=== PATIENT | female | born 1965 | race Caucasian/White ===

== ENCOUNTER → 2017-01-24 | Outpatient (CLI) | payer BC ==
[~2017-01-24] MED LIST: AMLO-110 PO; B-CO1CAP17 PO; GLIP10TA3 PO; GLIP10TA9 PO; LOSA50TA6 PO; LYRICA PO; TRAM-10 PO
--- NOTE | 2017-01-24 14:04 | MAMMOGRAPHY REPORT ---
BILATERAL DIGITAL DIAGNOSTIC MAMMOGRAM TOMOSYNTHESIS WITH CAD AND TARGETED LEFT ULTRASOUND: 01/24/2017 CLINICAL HISTORY: The patient reported approximately 2 weeks ago she had left areolar pain, redness, and swelling. She was placed on antibiotics and her symptoms have greatly improved. She no longer h as pain or redness but does still have some areolar swelling/hardness. She denies any nipple dischar ge. She does smoke cigarettes. TECHNIQUE: Breast tomosynthesis in addition to standard 2D mammography was performed. Current study was also evaluated with a Computer Aided Detection (CAD) system. Bilateral CC and MLO 2-D and tomosy nthesis images were obtained. COMPARISON: Comparison is made to exams dated: 06/06/2015 mammogram, 04/01/2014 mammogram - [facility], and 09/15/2010 mammogram. BREAST COMPOSITION: The tissue of both breasts is heterogeneously dense, which may obscure small mas ses. FINDINGS: A triangle marker durham the site of the left areolar swelling. There is mild areolar thic kening seen mammographically, as well as an ill-defined focal asymmetry in the left subareolar region with associated architectural distortion, best seen on the cc tomosynthesis images. Additionally, t here is a prominent left axillary lymph node which measures 13 mm. The remainder of both breasts are stable compared to prior exams, without suspicious masses, calcific ations, or areas of architectural distortion noted. Targeted ultrasound was performed of the left subareolar breast, which shows ill-defined hypoechoic t issue which demonstrates increased vascularity and likely represents resolving inflammatory changes. No focal fluid collection is seen to suggest abscess. In the left axilla, there is a left axillary lymph node which has a normal fatty hilum and cortical t hickness at the upper limits of normal at 2 mm. The lymph node measures 1.5 x 0.5 cm. This correspo nds with the prominent left axillary lymph node seen mammographically and is likely reactive. IMPRESSION: ACR-BI-RADS CATEGORY 3: PROBABLY BENIGN, TARGETED ULTRASOUND ACR-BI-RADS CATEGORY 3: PRO BABLY BENIGN 1. Left areolar thickening and subareolar asymmetry/distortion seen mammographically, with ill-define d hypoechoic tissue seen in the left subareolar region on ultrasound. Given the clinical history, fi ndings are probably benign and likely represent resolving inflammatory changes from recent mastitis. No focal abscess is seen. Recommend follow-up diagnostic tomosynthesis mammograms and possible ultr asound of the left breast in 6-8 weeks to ensure resolution of the findings. Smoking cessation was a lso discussed with the patient, given that this is a big risk factor for nonpuerperal mastitis. Also recommend clinical follow-up; the patient should return sooner if symptoms recur/worsen. 2. Prominent left axillary lymph node, which is probably benign and likely represents a reactive lym ph node. This can be reassessed at the time of the left breast follow-up. The patient has been verbally notified of the results. Approximately 10% of breast cancers are not detected with mammography. A negative mammographic report should not delay biopsy if a clinically suggestive mass is present. Diana Bernardo M.D. ah/:01/24/2017 11:04:44 Supply Chain Logistics Manager: Kamilah TORRES(R)(M), [facility] letter sent: Follow Up Recommended 3 BI-RADS Code: ACR-BI-RADS Category 3: Probably Benign Ultrasound BI-RADS: ACR-BI-RADS Category 3: Pr obably Benign
== END | disposition home or self-care (01) ==
LOC: C.MAMM 10:21
PROVIDERS: ATTEND Nurse Practitioner Family
DX: N64.4 Mastodynia (principal); N61.0 Mastitis without abscess; N64.89 Other specified disorders of breast

== ENCOUNTER → 2017-04-12 | Outpatient (CLI) | payer BC ==
--- NOTE | 2017-04-12 15:23 | MAMMOGRAPHY REPORT ---
UNILATERAL LEFT DIGITAL DIAGNOSTIC MAMMOGRAM TOMOSYNTHESIS WITH CAD AND TARGETED LEFT ULTRASOUND: CLINICAL HISTORY: The patient is here for follow-up after having clinical symptoms of mastitis in Aug ust. The patient denies any current complaints, with no pain, redness, nipple discharge, palpable kelly mps, or other complaints. TECHNIQUE: Breast tomosynthesis in addition to standard 2D mammography was performed. Current study was also evaluated with a Computer Aided Detection (CAD) system. Left CC and MLO 2-D and tomosynthes is images were obtained. COMPARISON: Comparison is made to exams dated: 04/12/2017 ultrasound, 01/24/2017 mammogram, 5 mammogram, 04/01/2014 mammogram - [facility], and 09/15/2010 mammogram. BREAST COMPOSITION: The tissue of the left breast is heterogeneously dense, which may obscure small masses. FINDINGS: The previously seen ill-defined focal asymmetry with associated distortion in the left sub areolar breast mammographically is decreased and no longer clearly evident, with areolar thickening a lso decreased. The previously seen prominent left axillary lymph node is also significantly decrease d in size. The remainder of the left breast is stable compared to prior exams, without suspicious ma sses, calcifications, or areas of architectural distortion noted. Targeted ultrasound was performed of the left subareolar breast. The previously seen ill-defined hyp oechoic tissue in the left subareolar breast is significantly decreased compared to the January 2017 e xam. There is a small residual isoechoic 7 x 5 mm mass which may be within a milk duct and may repre sent intraductal debris versus residual inflammatory changes/small abscess. Given the significant in terval decrease in size, the finding is benign and is consistent with resolving mastitis. The previo usly seen left axillary lymph node has decreased in size and is now morphologically normal with sherron l cortical thickness. The lymph node now measures 11 mm, previously measuring 15 mm. Given the inte rval decrease in size, the left axillary lymph node is benign and was likely reactive. IMPRESSION: ACR BI-RADS CATEGORY 2: BENIGN, TARGETED ULTRASOUND ACR BI-RADS CATEGORY 2: BENIGN Significant interval decrease in size with near-complete resolution of inflammatory changes in the le ft subareolar breast. Given the interval decrease, findings are benign and compatible with resolving mastitis. The left axillary lymph node is also decreased and is consistent with a benign reactive l ymph node. There is no mammographic or targeted sonographic evidence of malignancy. Recommend kym nued clinical follow-up; the patient should return for repeat imaging if symptoms recur. Also recomm end routine bilateral screening mammograms which are due January 2018. The patient has been verbally notified of the results. Approximately 10% of breast cancers are not detected with mammography. A negative mammographic report should not delay biopsy if a clinically suggestive mass is present. Diana Bernardo M.D. ah/:04/12/2017 09:31:12 Vector Control Assistant: Priya TORRES(Kelly)(M), [facility] letter sent: Normal 1/2 BI-RADS Code: ACR BI-RADS Category 2: Benign Ultrasound BI-RADS: ACR BI-RADS Category 2: Benign
== END | disposition home or self-care (01) ==
LOC: C.MAMM 08:34
PROVIDERS: ATTEND Internal Medicine
DX: Z09 Encounter for follow-up examination after completed treatment for conditions other than malignant neoplasm (principal); Z86.19 Personal history of other infectious and parasitic diseases

== ENCOUNTER → 2017-07-19 | Outpatient (CLI) | payer OTHER ==
--- NOTE | 2017-07-19 14:49 | DIAGNOSTIC IMAGING REPORT ---
LEFT HAND 3 VIEWS HISTORY: Left hand pain. Fall. COMPARISON: None. FINDINGS: There is no fracture or dislocation. Soft tissues are unremarkable. No radiopaque foreign bodies. IMPRESSION: No fractures. Electronically signed by: Douglas Jacobs M.D. 07/19/2017 2:47 PM Dictated Date/Time: 07/19/2017 2:45 PM
== END | disposition home or self-care (01) ==
LOC: C.RAD1850 14:32
PROVIDERS: ATTEND Family Medicine Hospice and Palliative Medicine
DX: M79.645 Pain in left finger(s) (principal); W19.XXXA Unspecified fall, initial encounter

== ENCOUNTER 2019-02-26 14:10 | Inpatient (IN) ==
[2019-02-26] MEDS ORDERED: SODIUM CHLORIDE 0.9% 1000ML 1,000 ML IV ONE (14:39)
[2019-02-26 15:02] LABS: Basophils # (auto) 0.03 K/uL (0-0.2); Basophils % (auto) 0.3 %; Eosinophils # (auto) 0.56 K/uL (0-0.5); Eosinophils % (auto) 5.5 %; Hematocrit (blood only) 35.8 % (37-47); Hemoglobin 11.7 g/dL (12.0-16.0); Immature Granulocytes # (auto) 0.02 K/uL (0.00-0.02); Immature Granulocytes % (auto) 0.2 %; Lymphocytes # (auto) 2.19 K/uL (1.2-3.4); Lymphocytes % (auto) 21.5 %; Mean Corpuscular Hemoglobin 27.6 pg (25-34); Mean Corpuscular Hgb Conc 32.7 g/dL (32-36); Mean Corpuscular Volume 84.4 fL (80-100); Mean Platelet Volume 10.2 fL (7.4-10.4); Monocytes # (auto) 0.78 K/uL (0.11-0.59); Monocytes % (auto) 7.7 %; Neutrophils # (auto) 6.61 K/uL (1.4-6.5); Neutrophils % (auto) 64.8 %; Platelet Count 264 K/uL (130-400); RDW Coefficient of Variation 13.1 % (11.5-14.5); RDW Standard Deviation 40.2 fL (36.4-46.3); Red Blood Count 4.24 M/uL (4.2-5.4); White Blood Count 10.19 K/uL (4.8-10.8)
[2019-02-26 15:19] LABS: Albumin Level 3.4 gm/dl (3.4-5.0); Calcium 9.3 mg/dl (8.5-10.1); Creatinine Clr Calc Pharmacy 42.2 ml/min; Est GFR (African American) 55.9; Est GFR (Non-African American) 48.3
[2019-02-26 15:21] LABS: Albumin Globulin Ratio 0.8 (0.9-2); Bilirubin,Total 0.4 mg/dl (0.2-1); Total Protein 7.4 gm/dl (6.4-8.2)
[2019-02-26] MEDS ORDERED: IOVERSOL 100ml IV PRN (15:40)
--- NOTE | 2019-02-26 15:59 | CT Scan Report ---
CT facial bones w con CLINICAL HISTORY: 53 years-old Female presenting with Upper lip/gingival swelling - h/o dental implan ts. TECHNIQUE: Multidetector CT of the face was performed after the administration of intravenous contras t. IV contrast: 93 mL of Optiray 320. One or more dose lowering techniques were used consistent with the principles of ALARA (as low as reasonably achievable), including automatic exposure control, mA o r kV adjustment to individual patient size, and/or use of iterative reconstruction. COMPARISON: None. CT DOSE (mGy.cm): The estimated cumulative dose is 636.35 mGycm. FINDINGS: Coatings Inspector topogram: Unremarkable. Prominent bilateral submandibular lymph nodes. Infiltration of the superficial subcutaneous tissue al jesu the upper lip and midline maxilla. Rim-enhancing fluid collection measuring 11 mm in diameter con sistent with odontogenic abscess located in the midline immediately inferior to the nares and along t he upper lip. This is associated with cortical erosion at the dental bridge, specifically in the expe cted location of the right central incisor. Remainder of maxillary teeth are also absent. Several man dibular teeth are absent. Mild buckle hyperenhancement along the mandible without osseous erosion or periapical lucency associated with the mandibular teeth. Polypoid mucosal thickening to a mild degree in the inferior maxillary sinuses. Remainder of the para nasal sinuses and mastoid air cells clear. Orbits notable for absence of the squaxin lenses bladder otherwise normal. Limited intracranial evalua tion within normal limits. Patent vasculature. Visualized portion of the thyroid, parotid, and 70 to the glands normal. No infiltrative change in the deep fat planes. IMPRESSION: 1. 11 mm odontogenic abscess associated with the midline maxilla in the upper lip. This results from cortical erosion at a dental bridge along the midline maxilla at the expected site of the right cent ral maxillary incisor. 2. Inflammatory changes of the buccal mucosa. 3. Mild reactive submandibular lymphadenopathy. Electronically signed by: Yuri Bright M.D. 02/26/2019 3:58 PM
--- NOTE | 2019-02-26 16:15 | Emergency Department Note ---
History of Present Illness General Chief complaint: Facial Injury/Pain Stated complaint: FACIAL SWELLING Time Seen by Provider: 02/26/19 14:17 History of Present Illness Maximum Pain Intensity: 0 53-year-old female who presents to the emergency department with complaint of progressively worsening swelling of the upper lip. The patient reports that she has had a prior history of dental bridge inserted approximately 8 years ago by [facility] in [place], and has not had any problems since that time. The patient reports that she has so much swelling that she cannot wear her dentures. The patient reports that she has been seen at 2 walk-in clinics, as well as the local [facility] office, and has been told that this is an allergic reaction, and instructed to take Zyrtec. He was started on Augmentin antibiotics, although the patient reports a history of hives with penicillin. The patient reports that the dentist did not perform any type of imaging studies of the teeth. The patient has not had any fever or chills, difficulty swallowing or lower lip swelling. She denies any recent upper respiratory infections, or history of chronic sinusitis. The patient reports that she does have a history of chronic kidney disease, and does see Dr. Johnston, manager of manufacturing with [facility]. The patient reports that she is due for a lab recheck on Saturday, and the is wanting to know if we could do the orders that he has requested for her lab work. The patient currently rates her discomfort a 2 out of 10. Home Medications Home Medications Medication Instructions Recorded Confirmed Type amlodipine 10 mg PO QAM 03/18/18 02/26/19 History losartan 50 mg PO BID 03/18/18 02/26/19 History Basaglar KwikPen U-100 Insulin 14 unit SUBCUT HS 05/28/18 02/26/19 History ergocalciferol (vitamin D2) 50,000 50,000 units PO WEEKLY #4 cap 12/04/18 02/26/19 Rx unit capsule atorvastatin 10 mg tablet 10 mg PO HS #30 tab 01/19/19 02/26/19 History peg 3350-electrolytes 236 240 ml PO Q10M #4000 ml 02/25/19 02/26/19 Rx gram-22.74 gram-6.74 gram-5.86 gram solution acetaminophen [Tylenol] 325 mg PO Q6H PRN 02/26/19 02/26/19 History cetirizine [Zyrtec] 10 mg PO PM PRN 02/26/19 02/26/19 History Allergies Allergy/AdvReac Type Severity Reaction Status Date / Time alcohol Allergy Severe SHORTNESS Verified 02/26/19 14:55 OF BREATH aspirin Allergy Intermediate HIVES Verified 02/26/19 14:55 ibuprofen Allergy Mild HIVES Verified 02/26/19 14:55 metformin Allergy Mild BODY PAIN Verified 02/26/19 14:55 Penicillins Allergy Mild HIVES Verified 02/26/19 14:55 Past Med/Surg History Medical History Diabetes mellitus type 2, uncontrolled (Chronic) Diabetic retinopathy, nonproliferative (Chronic) Diabetic nephropathy (Chronic) Hypertension (Chronic) Dyslipidemia (Chronic) Tobacco use (Chronic) Abnormal TSH (Chronic) Disc degeneration, lumbar (Chronic) Hemorrhoids (Inactive) Impaired memory (Inactive) Asthma NO INHALER USED for the past 40 years. No h/o hospitalization or intubation Chronic kidney disease ? STAGE Diabetes mellitus, type 2 IDDM Fibromyalgia Hypertension Surgical History H/O hysterectomy for benign disease History of cataract surgery R; was given 4mg versed and 100mcg fentanyl along with ketamine and benadryl due to itching from fentanyl History of section History of colonoscopy History of dilatation and curettage History of hysterectomy History of tooth extraction Social History Preferred Language: Maltese Communication Ability: Effective Candle Wicker Required: No Beliefs That Will Affect Care: None Current Living Situation: Spouse Other Information That Helps Us Care for You: No Feels Safe at Home: Yes Safety Concerns: Feels Safe At This Time Smoking Status: Former smoker Tobacco Type: cigarettes ; Cigarettes Per Day: 10 ; Second Hand Exposure: No ; Tobacco Cessation Education Requested by Patient: No Hx Alcohol Use: No Hx Substance Use: No Review of Systems 10 system review was performed and was negative except for pertinent positives and negatives as indicated in history of present illness Physical Exam Vital Signs Vital Signs - 24 hr 02/26/19 14:14 02/26/19 15:21 02/26/19 17:49 Temperature 37.0 C Temperature Source Oral Sepsis Recent Fever Within 48 Hours No Sepsis New/Unexplained Change in Mental Status No Sepsis Action Taken by Nursing No Action Required Pulse Rate 92 H Pulse Rate [Finger] 75 65 Respiratory Rate 16 15 18 Respiratory Effort / Characteristics Non-Labored Spontaneous Respiratory Depth Normal Respiratory Pattern Regular Blood Pressure 180/98 H Blood Pressure [Left Arm] 187/104 H 143/66 H Blood Pressure Mean 125 Blood Pressure Mean [Left Arm] 131 91 Pulse Oximetry 96 98 98 Oxygen Delivery Method Room Air Room Air Room Air CONSTITUTIONAL: Healthy and well nourished. Alert and oriented X 3. She does not appear acutely ill or toxic, nor does she appear in any significant distress. HEENT: Examination shows notable edema of the soft tissue below the nose. Examination of the nares does not show any open wounds or erythema. Examination of the oropharynx shows significant maxillary gingival erythema and edema without any erythema or pointing. No erythema is noted extending across the hard palate. The post are visible within the hard palate soft tissue, without any evidence for purulent drainage or erythema. Pupils equal, round and reactive. NECK: Full active range of motion without discomfort. LYMPHATICS: No cervical chain adenopathy. RESPIRATORY: Clear to auscultation bilaterally with no wheezing, crackles, rhonchi or stridor. CARDIOVASCULAR: Regular rate and rhythm with no murmurs, rubs or gallops. GASTROINTESTINAL: Bowel sounds present in all quadrants. Negative CVA tenderness. MUSCULOSKELETAL: Full range of motion of all joints without discomfort. INTEGUMENTARY: No rash or other significant dermatologic conditions noted. HEMATOLOGIC: No ecchymosis or petechiae. PSYCHIATRIC: Positive affect. NEUROLOGIC: No focal neurologic deficits noted. Course Patient history and physical exam were performed. Nurse's notes were reviewed. Vital signs were reviewed, showing a blood pressure of 180/98. The patient did not appear in any acute discomfort. IV access was established, and labs were drawn. I did have our Insulation Sprayer try to get into the hospital system to determine what labs were ordered; unfortunately, they were unable to find the lab orders. Labs were reviewed, showing a creatinine of 1.26. Glucose is 116. Remaining electrolytes are normal. Hemoglobin is 11.7. Platelet count is normal. The patient was hydrated with a liter normal saline given the patient's history of chronic kidney disease. CT of the facial bones with IV contrast shows an 11 mm odontogenic abscess associated with the midline maxilla in the upper lip, likely resulting from a cortical erosion of the dental bridge in the same area. The case was discussed with Dr. Camara, ED attending physician, who recommended maxillofacial consultation. The case was then further discussed with Dr. Marquis, maxillofacial surgeon on-call, who came into the emergency department to evaluate the patient and review CT imaging. He is concerned that the infection is going to require the bridge post removal, and will plan to do that surgically. He has requested hospitalist admission for IV antibiotics and clearance, and he will anticipate doing the surgery tomorrow afternoon or evening. The case was then further discussed with the [facility] hospitalist, Dr. Vásquez, who will be admitting the patient. Please see her and Dr. Marquis's dictations for further treatment and final disposition. Administered Medications Atorvastatin Calcium (Lipitor) 10 mg PO HS ARI Stop: 03/28/19 20:59 Last Admin: 02/26/19 20:52 Dose: 10 mg Documented by: [id number] Losartan Potassium (Cozaar) 50 mg PO BID ARI Stop: 03/28/19 20:59 Last Admin: 02/26/19 20:49 Dose: 50 mg Documented by: [id number] Nicotine (Nicoderm Cq) 14 mg TD QAM ARI Stop: 03/28/19 19:38 Last Admin: 02/26/19 20:48 Dose: 14 mg Documented by: [id number] Discontinued Medications Sodium Chloride (Nss 1000ml) 1,000 mls @ 999 mls/hr IV .Q1H1M ONE Stop: 02/26/19 15:39 Last Infusion: 02/26/19 16:25 Dose: 0 mls/hr Documented by: [id number] Admin: 02/26/19 15:24 Dose: 999 mls/hr Documented by: [id number] Clindamycin Phosphate 900 mg/ (Dextrose) 56 mls @ 112 mls/hr IV ONE ONE Stop: 02/26/19 17:02 Last Infusion: 02/26/19 17:32 Dose: 0 mls/hr Documented by: [id number] Admin: 02/26/19 17:02 Dose: 112 mls/hr Documented by: [id number] Ioversol (Optiray 320 100ml) 93 ml IV ONCE PRN PRN Reason: Interaction Checking Stop: 03/02/19 15:39 Last Admin: 02/26/19 15:41 Dose: 93 ml Documented by: [id number] Medical Decision Making Medical Records Attestation: I reviewed the patient's medical records. Home Medications Current Medication List: was personally reviewed by me Laboratory Data Attestation: I reviewed the patient's lab results. Result diagrams: 02/26/19 14:46 02/26/19 14:46 Lab Results 02/26/19 02/26/19 02/26/19 Range/Units 14:46 14:46 14:46 WBC 10.19 (4.8-10.8) K/uL RBC 4.24 (4.2-5.4) M/uL Hgb 11.7 L (12.0-16.0) g/dL Hct 35.8 L (37-47) % MCV 84.4 (80-100) fL MCH 27.6 (25-34) pg MCHC 32.7 (32-36) g/dL RDW Std Deviation 40.2 (36.4-46.3) fL RDW Coeff of Josias 13.1 (11.5-14.5) % Plt Count 264 (130-400) K/uL MPV 10.2 (7.4-10.4) fL Immature Gran % (Auto) 0.2 % Neut % (Auto) 64.8 % Lymph % (Auto) 21.5 % [place] % (Auto) 7.7 % Eos % (Auto) 5.5 % Baso % (Auto) 0.3 % Immature Gran # (Auto) 0.02 (0.00-0.02) K/uL Neut # (Auto) 6.61 H (1.4-6.5) K/uL Lymph # (Auto) 2.19 (1.2-3.4) K/uL [place] # (Auto) 0.78 H (0.11-0.59) K/uL Eos # (Auto) 0.56 H (0-0.5) K/uL Baso # (Auto) 0.03 (0-0.2) K/uL ESR 69 H (0-21) mm/hr Sodium 143 (136-145) mmol/L Potassium 4.0 (3.5-5.1) mmol/L Chloride 112 H (98-107) mmol/L Carbon Dioxide 22 (21-32) mmol/L Anion Gap 9.0 (3-11) BUN 24 H (7-18) mg/dl Creatinine 1.26 H (0.6-1.2) mg/dl Est Cr Clr Drug Dosing 42.2 ml/min Est GFR ( Amer) 55.9 Est GFR (Non-Af Amer) 48.3 BUN/Creatinine Ratio 19.0 (10-20) Glucose 116 H (70-99) mg/dl Calcium 9.3 (8.5-10.1) mg/dl Total Bilirubin 0.4 (0.2-1) mg/dl AST 13 L (15-37) U/L ALT 15 (12-78) U/L Alkaline Phosphatase 113 (45-117) U/L Total Protein 7.4 (6.4-8.2) gm/dl Albumin 3.4 (3.4-5.0) gm/dl Globulin 4.0 (2.5-4.0) gm/dl Albumin/Globulin Ratio 0.8 L (0.9-2) Imaging Data My Impression: CT of the face with IV contrast shows evidence for an abscess within the soft tissue under the nose, as well as some cortical erosion of the maxillary bone adjacent to the bridge post. Radiologist report was also reviewed. Radiologist's Impression: CT facial bones w con CLINICAL HISTORY: 53 years-old Female presenting with Upper lip/gingival swelling - h/o dental implants. TECHNIQUE: Multidetector CT of the face was performed after the administration of intravenous contrast. IV contrast: 93 mL of Optiray 320. One or more dose lowering techniques were used consistent with the principles of ALARA (as low as reasonably achievable), including automatic exposure control, mA or kV a djustment to individual patient size, and/or use of iterative reconstruction. COMPARISON: None. CT DOSE (mGy.cm): The estimated cumulative dose is 636.35 mGycm. FINDINGS: Apartment Rental Agent topogram: Unremarkable. Prominent bilateral submandibular lymph nodes. Infiltration of the superficial subcutaneous tissue along the upper lip and midline maxilla. Rim-enhancing fluid collection measuring 11 mm in diameter consistent with odontogenic abscess located in the midline immediately inferior to the nares and along the upper lip. This is associated with cortical erosion at the dental bridge, specifically in the expected location of the right central incisor. Remainder of maxillary teeth are also absent. Several mandibular teeth are absent. Mild buckle hyperenhancement along the mandible without osseous erosion or periapical lucency associated with the mandibular teeth. Polypoid mucosal thickening to a mild degree in the inferior maxillary sinuses. Remainder of the paranasal sinuses and mastoid air cells clear. Orbits notable for absence of the [place] lenses bladder otherwise normal. Limited intracranial evaluation within normal limits. Patent vasculature. Visualized portion of the thyroid, parotid, and 70 to the glands normal. No infiltrative change in the deep fat planes. IMPRESSION: 1. 11 mm odontogenic abscess associated with the midline maxilla in the upper lip. This results from cortical erosion at a dental bridge along the midline maxilla at the expected site of the right central maxillary incisor. 2. Inflammatory changes of the buccal mucosa. 3. Mild reactive submandibular lymphadenopathy. Blood Pressure Blood Pressure Findings: Elevated blood pressure Blood Pressure Disposition: further management by hospitalist BR[place]NN Narrative Patient presents to emergency department with upper lip swelling for the past 2 weeks. Audible providers have indicated that her reaction was likely secondary to allergic reaction. CT imaging today otherwise shows an odontogenic abscess within the midline maxillary soft tissue. Patient will undergo I&D procedure an d dental hardware removal tomorrow. The patient currently does not have lab work suggesting acute kidney injury or failure. She is also afebrile, normotensive, not tachycardic no leukocytosis to suggest sepsis. Impression & Plan Dental abscess Discharge Plan Visit Data *Final* Discharge Date/Time: 02/26/19 19:23 Chief Complaint: Facial Injury/Pain Stated Complaint: FACIAL SWELLING ED Provider: Gary Camara ED Midlevel Provider: Jerardo Leal Discharge Problem: Dental abscess Patient Disposition: Admitted As Inpatient Discharge Instructions Interventions: ED Discharge Assessment Last Done: 02/26/19 19:23
[2019-02-26] MEDS ORDERED: CLINDAMYCIN 900 MG in DEXTROSE 5% 50 ML IV ONE (16:33)
--- NOTE | 2019-02-26 18:00 | History & Physical Report ---
Date of Service February 26, 2019 Assessment & Plan (1) Dental abscess: -Admit to [facility] -CT face revealing 11 mm abscess along the midline maxilla in the upper lip -IV clindamycin ordered, already received a dose in the ER -Dr. Marquis consulted, oral maxillofacial surgery, plans to drain the abscess tomorrow morning - allow diet this evening, patient reports pain is mild and is requesting a diet -N.p.o. after midnight -No white count, trend with am labs -Afebrile -No blood cultures were obtained initially -Patient appears very stable at this point in time, normal vital signs, pain controlled without medications, may use tylenol if needed (2) Hypertension: -Continue amlodipine 10 mg every morning, losartan 50 mg twice daily (3) Dyslipidemia: -Continue atorvastatin 10 mg daily (4) Tobacco use: -Cessation encouraged -Nicotine patch 14 mcg ordered to start now (5) Diabetes mellitus type 2, uncontrolled: -Last A1c was 8.2 in July 2018, repeat with a.m. labs -heart healthy/diabetic diet -Continue insulin 14 U HS -ISS with Accu-Cheks ACHS (6) Diabetic nephropathy: (7) Polycystic kidney disease: (8) Chronic kidney disease, stage III (moderate): -Follows with Dr. Johnston as an outpatient -Follow daily PRP -Patient is scheduled to follow-up with him and have lab work on 03/12/2019 to assess kidney function, patient was instructed to keep her appointment and plan on getting labs obtained at that time. (9) DVT prophylaxis: -Teds, ambulatory Disposition: Patient from home, admitted, surgical procedure to drain abscess tomorrow morning by Dr. Marquis History of Present Illness Primary Care Provider: Macie Brand MD This is a 53-year-old female with PMHx of HTN, HLD, tobacco use, DM type II, CKD stage III, diabetic nephropathy, and polycystic kidney disease who presents with acute onset of worsening swelling and pain of the upper lip. Patient notes that she underwent a dental bridge by [facility] in [place] approximately 8 years ago. Initially there was some swelling around the center tooth which then resolved. She reports that she had been seen at 2 urgent care clinics as well as the local [facility] office and was told that the lip swelling was an allergic reaction and told to take Zyrtec. There were no outpatient imaging studies of the teeth ordered. She was given a prescription for Augmentin, however has a penicillin or allergy and did not take the medication. She presented this morning because of increased swelling, mild pain and difficulty with eating. She denies any fever or chills, nausea, vomiting or any other acute complaints. Here in the ER a facial CT was performed showing an 11 mm abscess along the midline maxilla in the upper lip. No white count, no fever. Oral maxillofacial surgery, Dr. Marquis, plans to drain the abscess tomorrow morning Allergies Allergy/AdvReac Type Severity Reaction Status Date / Time alcohol Allergy Severe SHORTNESS Verified 02/26/19 14:55 OF BREATH aspirin Allergy Intermediate HIVES Verified 02/26/19 14:55 ibuprofen Allergy Mild HIVES Verified 02/26/19 14:55 metformin Allergy Mild BODY PAIN Verified 02/26/19 14:55 Penicillins Allergy Mild HIVES Verified 02/26/19 14:55 Home Medications Home Medications Medication Instructions Recorded Confirmed Type amlodipine 10 mg PO QAM 03/18/18 02/26/19 History losartan 50 mg PO BID 03/18/18 02/26/19 History Basaglar KwikPen U-100 Insulin 14 unit SUBCUT HS 05/28/18 02/26/19 History ergocalciferol (vitamin D2) 50,000 50,000 units PO WEEKLY #4 cap 12/04/18 02/26/19 Rx unit capsule atorvastatin 10 mg tablet 10 mg PO HS #30 tab 01/19/19 02/26/19 History peg 3350-electrolytes 236 240 ml PO Q10M #4000 ml 02/25/19 02/26/19 Rx gram-22.74 gram-6.74 gram-5.86 gram solution acetaminophen [Tylenol] 325 mg PO Q6H PRN 02/26/19 02/26/19 History cetirizine [Zyrtec] 10 mg PO PM PRN 02/26/19 02/26/19 History Past Med/Surg History Medical History Diabetes mellitus type 2, uncontrolled (Chronic) Diabetic retinopathy, nonproliferative (Chronic) Diabetic nephropathy (Chronic) Hypertension (Chronic) Dyslipidemia (Chronic) Tobacco use (Chronic) Abnormal TSH (Chronic) Disc degeneration, lumbar (Chronic) Hemorrhoids (Inactive) Impaired memory (Inactive) Asthma NO INHALER USED for the past 40 years. No h/o hospitalization or intubation Chronic kidney disease ? STAGE Diabetes mellitus, type 2 IDDM Fibromyalgia Hypertension Surgical History H/O hysterectomy for benign disease History of cataract surgery R; was given 4mg versed and 100mcg fentanyl along with ketamine and benadryl due to itching from fentanyl History of section History of colonoscopy History of dilatation and curettage History of hysterectomy History of tooth extraction Social History Preferred Language: Israeli Communication Ability: Effective Line Erector Apprentice Required: No Beliefs That Will Affect Care: Scientologist Scientologist Beliefs: RELIGIOUS Current Living Situation: Spouse Feels Safe at Home: Yes Smoking Status: Current every day smoker Tobacco Type: cigarettes ; Cigarettes Per Day: 10 CIG DAILY x 25+ years ; Second Hand Exposure: No ; Hx Alcohol Use: No Hx Substance Use: No Review of Systems Review of Systems: Constitutional: No fever, sweats or chills Eyes: No diplopia, no worsening or blurred vision ENT: normal hearing, no trouble swallowing + pain with swelling of the upper lip, difficulty eating today Respiratory: No cough, sputum, dyspnea at rest or on exertion Cardiovascular: No chest pain, tightness or palpitations Abdomen: No pain, nausea, vomiting, diarrhea or constipation Musculoskeletal: No joint pain, calf pain, swelling Neurologic: No weakness, numbness/tingling, or balance problems Psychiatric: No anxiety or depression Skin: No rash or itch Physical Exam Physical Exam: General: awake, alert, no apparent distress Head: Normocephalic, atraumatic ENT: PERRL, EOMI, no pharyngeal exudate, mucous membranes moist, + edema of the upper lip Chest: Clear to auscultation, on room air, no adventitious breath sounds Cardiac: Regular rate and rhythm, no murmur, no JVD, normal peripheral pulses, good capillary refill Abdominal: NABS x 4 quadrants, soft, nontender to palpation, no rebound, guarding or tenderness Extremities: Normal inspection, no peripheral edema or erythema, calfs nontender to palpation Psych: Normal mood and affect Neuro: AAO x 3, strength intact bilaterally and related 5/5, no motor deficits, speech is clear, no peripheral sensory deficits Skin: no rash or erythema Constitutional: WD/WN, vitals as above Eyes: normal visual viera by confrontation and + anicteric sclerae ENMT: Mouth: + lip abnormality (upper lip swelling) Neck: normal visual inspection and trachea midline Respiratory: normal respiratory effort, lungs clear to auscultation Cardiovascular: Rate/Rhythm: regular rate and regular rhythm Gastrointestinal (Abdomen): Inspection/Auscultation: abdomen not distended Percussion/Palpation: abdomen soft; abdomen nontender Musculoskeletal: Head/Neck/Chest: normocephalic and head atraumatic Neg for peripheral LE edema, + pedal pulses Skin: no rashes, warm and dry Neurologic: awake; not confused Speech / Cognition: normal speech Psychiatric: A+Ox3, euthymic affect Lymphatic: Exam as done by Christa Vásquez DO Results & Data Vital Signs (Past 12 Hours) Vital Signs Temp Pulse Pulse Resp BP BP Pulse Ox 02/26/19 17:49 65 18 143/66 H 98 02/26/19 15:21 75 15 187/104 H 98 02/26/19 14:14 37.0 C 92 H 16 180/[address] H [address] facial bones w con CLINICAL HISTORY: 53 years-old Female presenting with Upper lip/gingival swelling - h/o dental implants. TECHNIQUE: Multidetector CT of the face was performed after the administration of intravenous contrast. IV contrast: 93 mL of Optiray 320. One or more dose lowering techniques were used consistent with the principles of ALARA (as low as reasonably achievable), including automatic exposure control, mA or kV adjustment to individual patient size, and/or use of iterative reconstruction. COMPARISON: None. CT DOSE (mGy.cm): The estimated cumulative dose is 636.35 mGycm. FINDINGS: Assistant [employer] topogram: Unremarkable. Prominent bilateral submandibular lymph nodes. Infiltration of the superficial subcutaneous tissue along the upper lip and midline maxilla. Rim-enhancing fluid collection measuring 11 mm in diameter consistent with odontogenic abscess located in the midline immediately inferior to the nares and along the upper lip. This is associated with cortical erosion at the dental bridge, specifically in the expected location of the right central incisor. Remainder of maxillary teeth are also absent. Several mandibular teeth are absent. Mild buckle hyperenhancement along the mandible without osseous erosion or periapical lucency associated with the mandibular teeth. Polypoid mucosal thickening to a mild degree in the inferior maxillary sinuses. Remainder of the paranasal sinuses and mastoid air cells clear. Orbits notable for absence of the [place] lenses bladder otherwise normal. Limited intracranial evaluation within normal limits. Patent vasculature. Visualized portion of the thyroid, parotid, and 70 to the glands normal. No infiltrative change in the deep fat planes. IMPRESSION: 1. 11 mm odontogenic abscess associated with the midline maxilla in the upper lip. This results from cortical erosion at a dental bridge along the midline maxilla at the expected site of the right central maxillary incisor. 2. Inflammatory changes of the buccal mucosa. 3. Mild reactive submandibular lymphadenopathy. Code Status & VTE Plan Code Status Full code-discussed with patient and her at bedside Supervising Physician Co-Signing Physician Notes Pt seen and examined by me. Denies chest pain or SOB. Tolerating PO without issue. feels her upper lip swelling is improved. She has no hx of pain with this episode, only swelling. Agree with HPI/ROS as noted by PA See above for my exam in PE section Agree with plan as outlined above Seen by Dr. Schultz in the ED, planning for OR tomorrow Clinda started in the ED, continue DM management Pt's asked if she could have outside food. I did advise against this due to her infectious status and difficulty managing DM with outside food making her infection more difficult to tx. They voiced understanding and agreed to not bring in other food PG Care Time/CCT Total # of Minutes Spent Total Time Spent with Patient: Total time spent is greater than 50% in coordination of care (as documented) at patient's floor/unit and/or counseling patient:
[2019-02-26] MEDS ORDERED: CARBOHYDRATES FOR HYPOGLYCEMIA PO PRN (19:39)
[2019-02-26] MEDS ORDERED: ACETAMINOPHEN 325 MG TAB PO PRN (19:39)
[2019-02-26] MEDS ORDERED: GLUCOSE 10 TABS/TUBE PO PRN (19:39)
[2019-02-26] MEDS ORDERED: GLUCAGON FOR INJ 1 MG VIAL SQ PRN (19:39)
[2019-02-26] MEDS ORDERED: DEXTROSE 50% 50 ML SYRINGE IV PRN (19:39)
[2019-02-26] MEDS ORDERED: GLUCOSE 40% GEL 15 GM TUBE PO PRN (19:39)
--- NOTE | 2019-02-26 20:07 | Surgery Consultation ---
Date of Consultation February 26, 2019 Mrs Caal was seen in the ED this afternoon with a very extensive infection of the mucolabial fold and nasolabial area. The oral labial fold is obliterated and her upper lip is very swollen and painful. Failed outpatient 8 days of Augmentin 875 bid. Came to ED concerned of increasing lip swelling. Had dental implants placed in the past clinically and CT scan shows midline implant is failing and the etiology of this event. History of PCKD and DM. Plan Admission, IV antibiotics for 18-24 hours then to OR for I and D. Will keep post op for 24-36 hours to insure resolution of infection control of BP and DM Not able to dorsey upper denture due to swelling will need to manage diet and DM (insulin). I will alert OR staff to arrange time for I&D with [place] On and Off swelling has been going on for at least 6 months. The dentist NEVER considered that the implant was the cause. CT scan show 1 CM collection upper lip/nasal area and failing implant # 8 position with bone loss. Possible osteomyelitis given the retirement swelling and amount of bone loss History of Present Illness Attending Physician: Christa Vásquez DO Allergies Allergy/AdvReac Type Severity Reaction Status Date / Time alcohol Allergy Severe SHORTNESS Verified 02/26/19 14:55 OF BREATH aspirin Allergy Intermediate HIVES Verified 02/26/19 14:55 ibuprofen Allergy Mild HIVES Verified 02/26/19 14:55 metformin Allergy Mild BODY PAIN Verified 02/26/19 14:55 Penicillins Allergy Mild HIVES Verified 02/26/19 14:55 Home Medications Home Medications Medication Instructions Recorded Confirmed Type amlodipine 10 mg PO QAM 03/18/18 02/26/19 History losartan 50 mg PO BID 03/18/18 02/26/19 History Basaglar KwikPen U-100 Insulin 14 unit SUBCUT HS 05/28/18 02/26/19 History ergocalciferol (vitamin D2) 50,000 50,000 units PO WEEKLY #4 cap 12/04/18 02/26/19 Rx unit capsule atorvastatin 10 mg tablet 10 mg PO HS #30 tab 01/19/19 02/26/19 History peg 3350-electrolytes 236 240 ml PO Q10M #4000 ml 02/25/19 02/26/19 Rx gram-22.74 gram-6.74 gram-5.86 gram solution acetaminophen [Tylenol] 325 mg PO Q6H PRN 02/26/19 02/26/19 History cetirizine [Zyrtec] 10 mg PO PM PRN 02/26/19 02/26/19 History Patient History Medical History Diabetes mellitus type 2, uncontrolled (Chronic) Diabetic retinopathy, nonproliferative (Chronic) Diabetic nephropathy (Chronic) Hypertension (Chronic) Dyslipidemia (Chronic) Tobacco use (Chronic) Abnormal TSH (Chronic) Disc degeneration, lumbar (Chronic) Hemorrhoids (Inactive) Impaired memory (Inactive) Asthma NO INHALER USED for the past 40 years. No h/o hospitalization or intubation Chronic kidney disease ? STAGE Diabetes mellitus, type 2 IDDM Fibromyalgia Hypertension Surgical History H/O hysterectomy for benign disease History of cataract surgery R; was given 4mg versed and 100mcg fentanyl along with ketamine and benadryl due to itching from fentanyl History of section History of colonoscopy History of dilatation and curettage History of hysterectomy History of tooth extraction Social History Preferred Language: Upper Sorbian Communication Ability: Effective Check Services Clerk Required: No Beliefs That Will Affect Care: None Current Living Situation: Spouse Other Information That Helps Us Care for You: No Feels Safe at Home: Yes Safety Concerns: Feels Safe At This Time Smoking Status: Former smoker Tobacco Type: cigarettes ; Cigarettes Per Day: 10 ; Second Hand Exposure: No ; Tobacco Cessation Education Requested by Patient: No Hx Alcohol Use: No Hx Substance Use: No Results & Data Vital Signs (Past 12 Hours) Vital Signs Temp Pulse Pulse Resp BP BP Pulse Ox 02/26/19 18:57 80 18 146/80 H 98 02/26/19 17:49 65 18 143/66 H 98 02/26/19 15:21 75 15 187/104 H 98 02/26/19 14:14 37.0 C 92 H 16 180/98 H 96 PG Care Time/CCT Total # of Minutes Spent Total Time Spent with Patient: Total time spent is greater than 50% in coordination of care (as documented) at patient's floor/unit and/or counseling patient:
[2019-02-26] MEDS: NICOTINE 14 MG/24 HR PATCH TD SCH (20:48)
[2019-02-26] MEDS: LOSARTAN POTASSIUM 50 MG TAB PO SCH (20:49)
[2019-02-26] MEDS: ATORVASTATIN 10 MG TAB PO SCH (20:52)
[2019-02-26] MEDS ORDERED: INSULIN ASPART 100 UNITS/ML 3 ML PEN SC SCH (21:00)
[2019-02-26] MEDS ORDERED: INSULIN GLARGINE SOLOSTAR 100 UNITS/ML 3 ML PEN SQ SCH (21:00)
[2019-02-26] MEDS ORDERED: Nursing to Pharmacy Communication ONE ×2 (21:14→23:04)
[2019-02-27] MEDS: CLINDAMYCIN 600 MG in DEXTROSE 5% 50 ML IV SCH ×3 (00:13→18:00)
[2019-02-27] MEDS: INSULIN ASPART 100 UNITS/ML 3 ML PEN SC SCH ×6 (00:18→21:11)
[2019-02-27 05:59] LABS: Hematocrit (blood only) 34.8 % (37-47); Hemoglobin 11.4 g/dL (12.0-16.0); Mean Corpuscular Hemoglobin 27.7 pg (25-34); Mean Corpuscular Hgb Conc 32.8 g/dL (32-36); Mean Corpuscular Volume 84.5 fL (80-100); Mean Platelet Volume 10.2 fL (7.4-10.4); Platelet Count 257 K/uL (130-400); RDW Standard Deviation 39.9 fL (36.4-46.3); Red Blood Count 4.12 M/uL (4.2-5.4); White Blood Count 9.14 K/uL (4.8-10.8)
[2019-02-27 06:25] LABS: Calcium 8.8 mg/dl (8.5-10.1); Creatinine Clr Calc Pharmacy 45.5 ml/min; Est GFR (African American) 61.2; Est GFR (Non-African American) 52.8; Estimated Average Glucose 235 mg/dl; Hemoglobin A1C 9.8 % (4.5-5.6); Potassium 3.5 mmol/L (3.5-5.1)
[2019-02-27 06:28] LABS: Albumin Globulin Ratio 0.8 (0.9-2); Bilirubin,Total 0.2 mg/dl (0.2-1)
[2019-02-27] MEDS: AMLODIPINE BESYLATE 5 MG TAB PO SCH (08:25)
[2019-02-27] MEDS: LOSARTAN POTASSIUM 50 MG TAB PO SCH ×2 (08:25→21:07)
[2019-02-27] MEDS: NICOTINE 14 MG/24 HR PATCH TD SCH (08:26)
[2019-02-27] MEDS ORDERED: fentaNYL citrate 100 MCG/2 ML VIAL ONE (14:22)
[2019-02-27] MEDS ORDERED: PROPOFOL IV EMULSION 10 MG/ML 20 ML VIAL IV ONE (14:22)
[2019-02-27] MEDS ORDERED: MIDAZOLAM HCL 1 MG/ML 2ML VIAL ONE (14:22)
[2019-02-27] MEDS ORDERED: PROMETHAZINE HCL 6.25 MG in SODIUM CHLORIDE 0.9% 50 ML IV PRN (15:14)
[2019-02-27] MEDS ORDERED: ATROPINE SULFATE 0.1 MG/ML 10ML SYR IV PRN (15:14)
[2019-02-27] MEDS ORDERED: ONDANSETRON INJ 2 MG/ML 2 ML VIAL IV PRN (15:14)
[2019-02-27] MEDS ORDERED: ePHEDrine sulfate 50 MG/ML AMP IV PRN (15:14)
[2019-02-27] MEDS ORDERED: fentaNYL citrate 100 MCG/2 ML VIAL IV PRN (15:14)
--- NOTE | 2019-02-27 15:14 | Anesthesiology Consultation ---
Date of Service February 27, 2019 Assessment & Plan (1) Encounter for pre-operative examination: Chart Review Chart Review: Acceptable Risk for Surgery and Patient NOT seen in Pre Admission Testing Consults Requested none ASA ASA3 Proposed Anesthesia Anesthesia Type: General Risk / Benefits Reviewed With: PT / POA / Parent / Guardian, Accepts Plan and Informed Consent Obtained History Surgery Operation Date: 02/27/19 08:50 Proposed Procedures p Minor Excision - Fabiano Marquis, DMD Height/Weight Height: 5 ft 3 in Weight: 58.2 kg Allergies Allergy/AdvReac Type Severity Reaction Status Date / Time alcohol Allergy Severe SHORTNESS Verified 02/26/19 14:55 OF BREATH aspirin Allergy Intermediate HIVES Verified 02/26/19 14:55 ibuprofen Allergy Mild HIVES Verified 02/26/19 14:55 metformin Allergy Mild BODY PAIN Verified 02/26/19 14:55 Penicillins Allergy Mild HIVES Verified 02/26/19 14:55 Medications Home Medications Medication Instructions Recorded Confirmed Last Taken amlodipine 10 mg PO QAM 03/18/18 02/26/19 02/25/19 losartan 50 mg PO BID 03/18/18 02/26/19 02/25/19 Loyda Kay U-100 Insulin 14 unit SUBCUT HS 05/28/18 02/26/19 02/25/19 ergocalciferol (vitamin D2) 50,000 50,000 units PO WEEKLY #4 cap 12/04/18 02/26/19 02/22/19 unit capsule atorvastatin 10 mg tablet 10 mg PO HS #30 tab 01/19/19 02/26/19 02/23/19 peg 3350-electrolytes 236 240 ml PO Q10M #4000 ml 02/25/19 02/26/19 Unknown gram-22.74 gram-6.74 gram-5.86 gram solution acetaminophen [Tylenol] 325 mg PO Q6H PRN 02/26/19 02/26/19 02/25/19 cetirizine [Zyrtec] 10 mg PO PM PRN 02/26/19 02/26/19 02/25/19 Active Medications Generic Name Dose Route Start Last Admin Trade Name Freq PRN Reason Stop Dose Admin Amlodipine Besylate 10 mg 02/27/19 09:00 02/27/19 08:25 Norvasc PO 03/29/19 08:59 10 mg QAM ARI Administration Atorvastatin Calcium 10 mg 02/26/19 21:00 02/26/19 20:52 Lipitor PO 03/28/19 20:59 10 mg HS ARI Administration Clindamycin Phosphate 600 mg/ 54 mls @ 100 mls/hr 02/27/19 01:00 02/27/19 09:08 Dextrose IV 03/08/19 09:33 Infused Q8H ARI Infusion Insulin Aspart 0 units 02/27/19 00:00 02/27/19 12:56 Novolog Flexpen SC 03/29/19 00:00 Not Given Q6 ARI Losartan Potassium 50 mg 02/26/19 21:00 02/27/19 08:25 Cozaar PO 03/28/19 20:59 50 mg BID ARI Administration Nicotine 14 mg 02/26/19 19:39 02/27/19 08:26 Nicoderm Cq TD 03/28/19 19:38 14 mg QAM ARI Administration NPO Date Last Intake of Fluids: 02/26/19 Time Last Intake of Fluids: 23:55 Last Intake of Fluids Comment: sip of water with pills this am Date Last Intake of Solids: 02/26/19 Time Last Intake of Solids: 23:55 Past Medical History Medical History Diabetes mellitus type 2, uncontrolled (Chronic) Diabetic retinopathy, nonproliferative (Chronic) Diabetic nephropathy (Chronic) Hypertension (Chronic) Dyslipidemia (Chronic) Tobacco use (Chronic) Abnormal TSH (Chronic) Disc degeneration, lumbar (Chronic) Hemorrhoids (Inactive) Impaired memory (Inactive) Asthma NO INHALER USED for the past 40 years. No h/o hospitalization or intubation Chronic kidney disease ? STAGE Diabetes mellitus, type 2 IDDM Fibromyalgia Hypertension Exercise / Class Metabolic Activity II 4-5 Yardwork/Stairs/Walk up hill Past Surgical History Surgical History H/O hysterectomy for benign disease History of cataract surgery R; was given 4mg versed and 100mcg fentanyl along with ketamine and benadryl due to itching from fentanyl History of section History of colonoscopy History of dilatation and curettage History of hysterectomy History of tooth extraction Past Anesthesia History No Hx of Anesthesia Complications and No Family Hx of Anesthesia Complications History of PONV No Hx of PONV and No Hx of Motion Sickness Social History Smoking Status: Former smoker tobacco type: cigarettes Smoking cigarettes per day: 10 Hx Alcohol Use: No Hx Substance Use: No substance use type: does not use Physical Exam Vital Signs Last Vital Signs Temp 36.4 C L 02/27/19 14:58 Pulse 79 02/27/19 14:58 Resp 19 02/27/19 14:58 BP 147/90 H 02/27/19 14:58 Pulse Ox 98 02/27/19 14:58 ENMT Mouth: + dental restorations Thyromental Distance: > or= 3.5 Finger Breadths Mallampati Class: II Upper lip swelling Neck normal visual inspection Respiratory normal respiratory effort Auscultation: lungs clear to auscultation bilaterally Cardiovascular Rate/Rhythm: regular rate and regular rhythm Psychiatric Orientation: alert Testing Laboratory Results 02/27/19 05:35 02/27/19 05:35 Hemoglobin A1c 9.8 % (4.5-5.6) H 02/27/19 05:35 02/27/19 06:13 POC Glucose 89
--- NOTE | 2019-02-27 15:34 | History & Physical Bridge Note ---
Date of Service February 27, 2019 History & Physical Bridge Note I have examined the patient, reviewed the History & Physical and in the interval since the performance of the History & Physical I have noted the following changes of clinical significance: no changes noted
[2019-02-27] MEDS ORDERED: LIDOCAINE 2%/EPINEPHRINE 1:100,000 1.8 ML CARTRIDGE ONE ×2 (15:44→15:46)
[2019-02-27] MEDS ORDERED: CHLORHEXIDINE GLUCONATE 0.12% 480 ML ONE (15:45)
[2019-02-27] MEDS ORDERED: ONDANSETRON INJ 2 MG/ML 2 ML VIAL ONE (15:48)
[2019-02-27] MEDS ORDERED: SUCCINYLCHOLINE CHLORIDE 20 MG/ML 10 ML VIAL ONE (15:48)
[2019-02-27] MEDS ORDERED: ROCURONIUM BROMIDE 10 MG/ML 5 ML VIAL ONE (15:48)
[2019-02-27] MEDS ORDERED: PHENYLEPHRINE HCL 10 MG/ML VIAL ONE (15:55)
--- NOTE | 2019-02-27 16:23 | Post Operative Brief Note ---
PG Immediate Post Op with CF Date of Surgery February 27, 2019 Pre & Post Diagnosis Operation Date: 02/27/19 08:50 Pre and post op diagnosis Acute swelling and infection upper lip and naso-labial fold, infected loose # 8 dental implant Failed out patient course of oral antibiotics <No data on this case meets the specified criteria> Procedure Operation Date: 02/27/19 08:50 Actual Procedures p Extensive Nasal Labial Abscess (upper Lip) Removal of Infected Dental Implant #8 - Fabiano Marquis DMD Surgeon Fabiano Marquis, HOLLY Laboratory Operations Coordinator none Estimated Blood Loss 2 Findings Consistent with Post-Op Diagnosis Specimens Specimen Description: Culture #1- Nasal-Labial fold abcess Fresh Specimen- A. Biopsy of Chronically Inflamed Tissue B. Explanted Dental Implant
--- NOTE | 2019-02-27 17:00 | Anesthesiology Progress Note ---
Date of Service February 27, 2019 Anesthesia Post Procedure Vital Signs Vital Signs: Temp Pulse Pulse Resp BP Pulse Ox 02/27/19 16:40 66 18 100/61 99 02/27/19 16:33 36.1 C L 65 19 103/61 100 02/27/19 14:58 36.4 C L 79 19 147/90 H 98 02/27/19 07:55 36.9 C 67 14 134/80 99 02/26/19 23:31 37.0 C 71 18 154/78 H 100 02/26/19 19:41 37.5 C 73 18 173/89 H 99 02/26/19 18:57 80 18 146/80 H 98 02/26/19 17:49 65 18 143/66 H 98 Pain Intensity Mouth: Pain Intensity: 0 Transfer of Care Handoff Completed per policy Notes Mental Status: alert / awake / arousable Patient Amnestic to Procedure: Yes Nausea / Vomiting: adequately controlled Pain: adequately controlled Airway Patency, RR, SpO2: stable & adequate BP & HR: stable & adequate Hydration State: stable & adequate Anesthetic Complications: no major complications apparent
[2019-02-27] MEDS: TRAMADOL HCL 50 MG TABLET PO PRN (18:35)
[2019-02-27] MEDS ORDERED: Nursing to Pharmacy Communication ONE (18:45)
[2019-02-27] MEDS: OXYCODONE HCL IR 5 MG TAB (IMMEDIATE RELEASE) PO STA ×2 (19:54→21:05)
[2019-02-27] MEDS: ATORVASTATIN 10 MG TAB PO SCH (21:07)
--- NOTE | 2019-02-27 22:56 | Hospitalist Progress Note ---
Date of Service February 27, 2019 Assessment & Plan (1) Dental abscess: -Admit to [facility] -CT face revealing 11 mm abscess along the midline maxilla in the upper lip -IV clindamycin ordered, already received a dose in the ER -S/P Removal of Infected Dental Implant wILL MONITOR for another day. Plan is likely to discharge patient tomorrow. -Patient appears very stable at this point in time, normal vital signs, pain controlled without medications, may use tylenol if needed (2) Hypertension: -Continue amlodipine 10 mg every morning, losartan 50 mg twice daily (3) Dyslipidemia: -Continue atorvastatin 10 mg daily (4) Tobacco use: -Cessation encouraged -Nicotine patch 14 mcg ordered to start now (5) Diabetes mellitus type 2, uncontrolled: -Last A1c was above 9. Will need new insulin orders at discharge, -heart healthy/diabetic diet -Continue insulin 14 U HS -ISS with Accu-Cheks ACHS (6) Diabetic nephropathy: (7) Polycystic kidney disease: (8) Chronic kidney disease, stage III (moderate): -Follows with Dr. Johnston as an outpatient -Follow daily PRP -Patient is scheduled to follow-up with him and have lab work on 03/12/2019 to assess kidney function, patient was instructed to keep her appointment and plan on getting labs obtained at that time. (9) DVT prophylaxis: -Teds, ambulatory Disposition: Patient from home, admitted, surgical procedure to drain abscess tomorrow morning by Dr. Marquis Subjective 53 yo female reports feeling tired. She states she has some pain in her mouth. Asking for more pain medicine. Patient denies any nausea, vomiting, diarrhea. Review of Systems Review of Systems: Constitutional: No fever, sweats or chills Eyes: No diplopia, no worsening or blurred vision ENT: normal hearing, no trouble swallowing + pain with swelling of the upper lip, difficulty eating today Respiratory: No cough, sputum, dyspnea at rest or on exertion Cardiovascular: No chest pain, tightness or palpitations Abdomen: No pain, nausea, vomiting, diarrhea or constipation Musculoskeletal: No joint pain, calf pain, swelling Neurologic: No weakness, numbness/tingling, or balance problems Psychiatric: No anxiety or depression Skin: No rash or itch Physical Exam Physical Exam: General: awake, alert, no apparent distress Head: Normocephalic, atraumatic ENT: PERRL, EOMI, no pharyngeal exudate, mucous membranes moist, + edema of the upper lip Chest: Clear to auscultation, on room air, no adventitious breath sounds Cardiac: Regular rate and rhythm, no murmur, no JVD, normal peripheral pulses, good capillary refill Abdominal: NABS x 4 quadrants, soft, nontender to palpation, no rebound, guarding or tenderness Extremities: Normal inspection, no peripheral edema or erythema, calfs nontender to palpation Psych: Normal mood and affect Neuro: AAO x 3, strength intact bilaterally and related 5/5, no motor deficits, speech is clear, no peripheral sensory deficits Skin: no rash or erythema Results & Data Vital Signs (Past 12 Hours) Vital Signs Temp Pulse Pulse Resp BP Pulse Ox 02/27/19 20:46 37.8 C H 70 17 138/78 98 02/27/19 19:36 37.3 C 74 20 152/74 H 100 02/27/19 18:40 77 19 150/75 H 100 02/27/19 18:13 37.0 C 69 18 178/92 H 99 02/27/19 17:20 64 16 145/82 H 100 02/27/19 17:10 36.3 C L 64 15 142/84 H 99 02/27/19 17:00 65 18 129/86 100 02/27/19 16:50 63 19 111/71 100 02/27/19 16:40 66 18 100/61 99 02/27/19 16:33 36.1 C L 65 19 103/61 100 02/27/19 14:58 36.4 C L 79 19 147/90 H 98 PG Care Time/CCT Total # of Minutes Spent Total Time Spent with Patient: Total time spent is greater than 50% in coordination of care (as documented) at patient's floor/unit and/or counseling patient:
[2019-02-28] MEDS: TRAMADOL HCL 50 MG TABLET PO PRN (00:04)
[2019-02-28] MEDS: CLINDAMYCIN 600 MG in DEXTROSE 5% 50 ML IV SCH ×2 (00:40→08:02)
[2019-02-28 06:55] LABS: Hematocrit (blood only) 33.4 % (37-47); Hemoglobin 10.7 g/dL (12.0-16.0); Mean Corpuscular Hemoglobin 27.7 pg (25-34); Mean Corpuscular Volume 86.5 fL (80-100); Mean Platelet Volume 10.1 fL (7.4-10.4); Platelet Count 245 K/uL (130-400); RDW Standard Deviation 41.4 fL (36.4-46.3); Red Blood Count 3.86 M/uL (4.2-5.4); White Blood Count 8.14 K/uL (4.8-10.8)
[2019-02-28 07:33] LABS: Albumin Globulin Ratio 0.8 (0.9-2); BUN Creatinine Ratio 16.1 (10-20); Bilirubin,Total 0.5 mg/dl (0.2-1); Calcium 8.4 mg/dl (8.5-10.1); Creatinine Clr Calc Pharmacy 40.6 ml/min; Est GFR (African American) 53.4; Globulin 3.6 gm/dl (2.5-4.0); Potassium 4.1 mmol/L (3.5-5.1); Total Protein 6.6 gm/dl (6.4-8.2)
[2019-02-28] MEDS: AMLODIPINE BESYLATE 5 MG TAB PO SCH (08:03)
[2019-02-28] MEDS: NICOTINE 14 MG/24 HR PATCH TD SCH (08:03)
[2019-02-28] MEDS: LOSARTAN POTASSIUM 50 MG TAB PO SCH (08:03)
[2019-02-28] MEDS: INSULIN ASPART 100 UNITS/ML 3 ML PEN SC SCH ×2 (09:19→13:01)
--- NOTE | 2019-02-28 16:21 | Surgery Progress Note ---
Date of Service Mrs. Caal is doing very well from the I&D and debridement of the infected malpositioned dental implant. Her lip has improved greatly and the surgical area looks very well. No drainage noted Pain well controlled. I would suggest from oral surgery point of view that she can be Discharged today. I will follow her in my office in 2-3 weeks Post op instruction given need to see her dentist for a denture adjustment. I am very pleased with her progress and ability to care for her self at home. I would suggest Clindamycin 300 mg q 6-8 hours x 10 days Tylenol # 3 Disp: 12 si q 4-6 for pain not controlled by Tylenol or Motrin Thanks for your help in managing her care. February 28, 2019 Results & Data Vital Signs (Past 12 Hours) Vital Signs Temp Pulse Pulse Resp BP Pulse Ox 02/28/19 15:21 37.5 C 71 18 135/71 98 02/28/19 11:40 37.1 C 63 16 119/46 L 97 02/28/19 08:25 37.1 C 72 63 16 129/71 97 02/28/19 07:25 37.1 C 63 16 129/71 97 02/28/19 04:29 37.1 C 72 18 140/74 99 PG Care Time/CCT Total # of Minutes Spent Total Time Spent with Patient: Total time spent is greater than 50% in coordin ation of care (as documented) at patient's floor/unit and/or counseling patient:
--- NOTE | 2019-03-09 07:16 | Discharge Summary ---
Date of Service February 28, 2019 Admission HPI Per Admitting Provider This is a 53-year-old female with PMHx of HTN, HLD, tobacco use, DM type II, CKD stage III, diabetic nephropathy, and polycystic kidney disease who presents with acute onset of worsening swelling and pain of the upper lip. Patient notes that she underwent a dental bridge by [facility] in [place] approximately 8 years ago. Initially there was some swelling around the center tooth which then resolved. She reports that she had been seen at 2 urgent care clinics as well as the local [facility] office and was told that the lip swelling was an allergic reaction and told to take Zyrtec. There were no outpatient imaging studies of the teeth ordered. She was given a prescription for Augmentin, however has a penicillin or allergy and did not take the medication. She presented this morning because of increased swelling, mild pain and difficulty with eating. She denies any fever or chills, nausea, vomiting or any other acute complaints. Here in the ER a facial CT was performed showing an 11 mm abscess along the midline maxilla in the upper lip. No white count, no fever. Oral maxillofacial surgery, Dr. Marquis, plans to drain the abscess tomorrow morning Principal Diagnosis Dental abscess Discharge Exam General: awake, alert, no apparent distress Head: Normocephalic, atraumatic ENT: PERRL, EOMI, no pharyngeal exudate, mucous membranes moist, + edema of the upper lip Chest: Clear to auscultation, on room air, no adventitious breath sounds Cardiac: Regular rate and rhythm, no murmur, no JVD, normal peripheral pulses, good capillary refill Abdominal: NABS x 4 quadrants, soft, nontender to palpation, no rebound, guarding or tenderness Extremities: Normal inspection, no peripheral edema or erythema, calfs nontender to palpation Psych: Normal mood and affect Neuro: AAO x 3, strength intact bilaterally and related 5/5, no motor deficits, speech is clear, no peripheral sensory deficits Skin: no rash or erythema Discharge Data Allergies Allergy/AdvReac Type Severity Reaction Status Date / Time alcohol Allergy Severe SHORTNESS Verified 02/26/19 14:55 OF BREATH aspirin Allergy Intermediate HIVES Verified 02/26/19 14:55 ibuprofen Allergy Mild HIVES Verified 02/26/19 14:55 metformin Allergy Mild BODY PAIN Verified 02/26/19 14:55 Penicillins Allergy Mild HIVES Verified 02/26/19 14:55 Consultations 02/26/19 17:35 ED Decision to Admit Stat 02/26/19 19:39 Consult Case Management - Discharge Planning Routine Consult Oromaxillofacial Surgery Routine Procedures Performed Operation Date: 02/27/19 08:50 Actual Procedures p Draw Extensive Nasal Labial Abcess (upper Lip)(Not Applicable) - Fabiano Marquis DMD s Removal of Infected Dental Implant #8(Not Applicable) - Fabiano Marquis DMD Ordered Studies 02/26/19 14:39 CT facial bones w con Stat Hospital Course (1) Dental abscess: -Admit to Med/Surg -CT face revealing 11 mm abscess along the midline maxilla in the upper lip -IV clindamycin ordered, already received a dose in the ER -S/P Removal of Infected Dental Implant -Patient improved during duration of hospital -Patient appears very stable at this point in time, normal vital signs, pain controlled without medications -will discharge on additional antibiotics. (2) Hypertension: -Continue amlodipine 10 mg every morning, losartan 50 mg twice daily (3) Dyslipidemia: -Continue atorvastatin 10 mg daily (4) Tobacco use: -Cessation encouraged -Nicotine patch 14 mcg ordered to start now (5) Diabetes mellitus type 2, uncontrolled: -Last A1c was above 9. Will need new insulin orders at discharge, -heart healthy/diabetic diet -Continue insulin 14 U HS -ISS with Accu-Cheks ACHS (6) Diabetic nephropathy: (7) Polycystic kidney disease: (8) Chronic kidney disease, stage III (moderate): -Follows with Dr. Johnston as an outpatient -Follow daily PRP -Patient is scheduled to follow-up with him and have lab work on 03/12/2019 to assess kidney function, patient was instructed to keep her appointment and plan on getting labs obtained at that time. (9) DVT prophylaxis: -Teds, ambulatory Disposition: Patient from home, admitted, surgical procedure to drain abscess tomorrow morning by Dr. Marquis Total Time Total Time Spent Total Time Spent (In Minutes): 32 Total Time Includes: Examination of the Patient, Discharge Planning and Medication Reconciliation Discharge Plan Discharge Items Patient Disposition: Home - Self-Care Reason For Visit: ABSCESS Discharge Diagnosis: facial abscess Condition on Discharge: Good Activity: Resume your previous activity Bathing: No limitations Driving/Machine Use: Resume 3 days after discharge Non-emergency contact: Surgeon Call non-emergency contact if: your temperature is above 101.5, your wound has increased redness, your wound has increased drainage and your wound pain has increased Follow-up/Referrals: Macie Brand MD [Primary Care Provider] - Fabiano Marquis DMD [Physician] - Diet: Full liquid Diet Texture: Pureed (blended smooth) Addtl Attending Provider Instructions: I reviewed the treatment plan and post op care with the patient and family. Understanding was expressed. Time was given for questions regarding the surgery, risks and post op care. I will see her in follow up in 2-3 weeks Diet, home care, denture use, denture adjustment were discussed Massage, mouth rinsing, soft foods, home care reviewed Pending Studies at Discharge: No Stand-Alone Forms: My [facility], Opioid Pain Management, Work/School Release (Inpt) Medications and DC Order Prescriptions: New Novolog Flexpen U-100 Insulin 100 unit/mL (3 mL) insulin pen See Rx Instructions .ROUTE .COMPLEX Qty: 15 RF: 0 clindamycin HCl 300 mg capsule 300 mg PO Q8H 10 Days Qty: 30 RF: 0 nicotine [Nicoderm CQ] 14 mg/24 hr patch 24 hour 1 patch TD DAILY Qty: 21 RF: 0 acetaminophen-codeine 300-30 mg tablet 1 tab PO Q8H PRN (Reason: pain) Qty: 12 RF: 0 Continued ergocalciferol (vitamin D2) 50,000 unit capsule 50,000 units PO WEEKLY Qty: 4 RF: 3 peg 3350-electrolytes [Golytely] 236-22.74-6.74 -5.86 gram recon soln 240 ml PO Q10M Qty: 4000 RF: 0 atorvastatin 10 mg tablet 10 mg PO HS Qty: 30 RF: 0 losartan 50 mg Tablet 50 mg PO BID RF: 0 amlodipine 10 mg Tablet 10 mg PO QAM RF: 0 Basaglar KwikPen U-100 Insulin 100 unit/mL (3 mL) Insulin Pen 14 unit SUBCUT HS RF: 0 acetaminophen [Tylenol] 325 mg Capsule 325 mg PO Q6H PRN (Reason: Pain) RF: 0 Discharge Orders: Discharge Order (Routine); Ordered 02/28/19 Ordered By: Cain Lange Admission Data Admit Date/Time: 02/26/19 18:08 Attending Provider: Cain Lange Admit Provider: Christa Vásquez Primary Care Provider: Macie Brand V. Other Providers: Fabiano Marquis Jessica A Other Interventions: Discharge Summary Assessment (RN) Last Done: 02/28/19 16:42 DC Date/Time DO NOT enter until pt leaves facility: 02/28/19 18:15
--- NOTE | 2019-03-11 11:38 | Operative Report ---
Post Operative Report Pre & Post Diagnosis Operation Date: 02/27/19 08:50 Pre-Op Diagnosis: ABSCESS Post-Op Diagnosis: ABSCESS Procedure Operation Date: 02/27/19 08:50 Actual Procedures p Draw Extensive Nasal Labial Abcess (upper Lip)(Not Applicable) - Fabiano Marquis DMD s Removal of Infected Dental Implant #8(Not Applicable) - Fabiano Marquis DMD Surgeon Fabiano Marquis DMD Machine I Cutter none Estimated Blood Loss 2 Findings Consistent with Post-Op Diagnosis Specimens C and S of infected abscess upper lip==see report Tissue from the implant defect Description of Procedure Pre-op= infected upper lip and infected dental implant at # 8 position Once cleared for surgery general anesthesia was achieved, the eyes were protected by the anesthesia dept criteria.. A time out was take for patient ID, antibiotics, equipment and position verification once all agreed the procedure began. Local anesthesia was given i using Marcaine with a vasoconstrictor ( 1.8 ml x 2 ) A throat pack was placed after the oral cavity was irrigated with saline. Upper Lip and infected dental implant # 8 area Incision made over the swollen mucobuccal labial fold. Much pus drained out and was cultured. The infected implant # 8 was loose and was removed. A large osseous defect was noted due to the long history of infection. The defect was cleaned out of all cystic like material and submitted for pathology.. The bony margins were trimmed and smoothed and the flap was sutured closed with a 2-0 chromic . I small pen-leonor drain was placed in the labial fold area to allow drainage. When the procedure was done I inspected the site and drain to insure all bleeding was controlled. I removed the throat pack and suctioned the throat. A gauze pressure dressings were placed. All instrument and sponge count was correct. the patient was allowed to awake from the anesthesia. Once full awake the anesthesia tube was removed and the patient taken to the recovery room with all vital sign stable. I attest to the content of the Intraoperative Record and any orders documented therein. Any exceptions are noted below.
== END 2019-02-28 18:15 | disposition home or self-care (01) | DRG 908 ==
LOC: ED 14:10 → 3N 18:08 → SUATTDRO 18:08 → 3N 19:23
DX: E11.319 Type 2 diabetes mellitus with unspecified diabetic retinopathy without macular edema; K04.7 Periapical abscess without sinus; N18.3 Chronic kidney disease, stage 3 (moderate); T85.628A Displacement of other specified internal prosthetic devices, implants and grafts, initial encounter; M27.5 Periradicular pathology associated with previous endodontic treatment; T85.79XA Infection and inflammatory reaction due to other internal prosthetic devices, implants and grafts, initial encounter; E11.21 Type 2 diabetes mellitus with diabetic nephropathy; I12.9 Hypertensive chronic kidney disease with stage 1 through stage 4 chronic kidney disease, or unspecified chronic kidney disease; M79.7 Fibromyalgia; Z88.0 Allergy status to penicillin; Q61.3 Polycystic kidney, unspecified; Z79.4 Long term (current) use of insulin; K12.2 Cellulitis and abscess of mouth; E78.5 Hyperlipidemia, unspecified; Y92.009 Unspecified place in unspecified non-institutional (private) residence as the place of occurrence of the external cause; F17.210 Nicotine dependence, cigarettes, uncomplicated; Y73.2 Prosthetic and other implants, materials and accessory gastroenterology and urology devices associated with adverse incidents; Z88.6 Allergy status to analgesic agent; J45.909 Unspecified asthma, uncomplicated

== ENCOUNTER 2020-09-08 19:19 | Inpatient (IN) ==
[2020-09-08] MEDS ORDERED: ONDANSETRON INJ 2 MG/ML 2 ML VIAL IV STA (19:28)
[2020-09-08] MEDS ORDERED: SODIUM CHLORIDE 0.9% 1000ML 1,000 ML IV ONE (19:28)
[2020-09-08] MEDS ORDERED: MECLIZINE HCL 25 MG TAB PO STA (19:28)
[2020-09-08 19:54] LABS: Oxygen Saturation VBG 91.6 %; pH VBG 7.38 (7.36-7.41)
[2020-09-08 20:00] LABS: iSTAT Creatinine 2.6 mg/dl (0.6-1.3); iSTAT Hemoglobin 11.2 g/dl (12.0-16.0); iSTAT Ionized Calcium 1.16 mmol/l (1.12-1.32); iSTAT Potassium 3.9 mmol/L (3.3-5.0)
[2020-09-08 20:14] LABS: Basophils # (auto) 0.03 K/uL (0-0.2); Basophils % (auto) 0.3 %; Eosinophils # (auto) 0.32 K/uL (0-0.5); Eosinophils % (auto) 3.4 %; Hematocrit (blood only) 34.2 % (37-47); Hemoglobin 11.9 g/dL (12.0-16.0); Immature Granulocytes # (auto) 0.02 K/uL (0.00-0.02); Immature Granulocytes % (auto) 0.2 %; Lymphocytes # (auto) 2.06 K/uL (1.2-3.4); Lymphocytes % (auto) 21.7 %; Mean Corpuscular Hemoglobin 28.7 pg (25-34); Mean Corpuscular Hgb Conc 34.8 g/dL (32-36); Mean Corpuscular Volume 82.6 fL (80-100); Mean Platelet Volume 10.1 fL (7.4-10.4); Monocytes # (auto) 0.63 K/uL (0.11-0.59); Monocytes % (auto) 6.6 %; Neutrophils # (auto) 6.42 K/uL (1.4-6.5); Neutrophils % (auto) 67.8 %; Platelet Count 378 K/uL (130-400); RDW Coefficient of Variation 13.7 % (11.5-14.5); RDW Standard Deviation 41.3 fL (36.4-46.3); Red Blood Count 4.14 M/uL (4.2-5.4); White Blood Count 9.48 K/uL (4.8-10.8)
[2020-09-08 20:17] LABS: BUN Creatinine Ratio 19.1 (10-20); Calcium 8.5 mg/dl (8.5-10.1); Creatinine Clr Calc Pharmacy 23.9 ml/min; Est GFR (Non-African American) 22.4; Potassium 3.8 mmol/L (3.5-5.1)
[2020-09-08 20:28] LABS: Troponin I 0.084 ng/ml (0-0.045)
--- NOTE | 2020-09-08 20:50 | CT Scan Report ---
CT OF THE HEAD WITHOUT CONTRAST CLINICAL HISTORY: Dizziness. COMPARISON STUDY: No previous studies for comparison. CT DOSE: 614.27 mGy.cm TECHNIQUE: Helical axial images of the head were obtained without IV contrast. Automated exposure con trol was utilized for the study. A dose lowering technique was utilized adhering to the principles o f ALARA. FINDINGS: No acute intracranial hemorrhage, midline shift or mass effect is present. Ventricular syst em is normal. Basilar cisterns are patent. There are no extra axial collections. There is bilateral b aileen ganglia calcification. There are no findings to suggest acute dural sinus thrombosis or acute te rritorial infarct. There is an 8 mm calcified extra axial density overlying the anterior medial left frontal lobe on axial image 24. There are no significant calvarial abnormalities. IMPRESSION: 1. No acute intracranial findings. 2. 8 mm extra-axial density overlying the anteromedial left frontal lobe. This favors a calcified men ingioma. This is benign. ACT 112: Negative or not required by law. Electronically signed by: José Miguel Amaya M.D. 09/08/2020 8:48 PM
--- NOTE | 2020-09-08 21:17 | CT Scan Report ---
CT OF THE ABDOMEN AND PELVIS WITHOUT CONTRAST CLINICAL HISTORY: Dizziness. Acute kidney injury. COMPARISON STUDY: CT of the abdomen and pelvis November 19, 2013. TECHNIQUE: Axial images of the abdomen and pelvis were obtained without IV contrast. Images were revi ewed in the axial, sagittal, and coronal planes. Automated exposure control was utilized for the jocelyn dy. A dose lowering technique was utilized adhering to the principles of ALARA. FINDINGS: Lung bases are unremarkable. No pneumatosis, free air or portal venous gas is present. Both kidneys are enlarged and contain innumerable lesions which favor cysts although these are suboptimal ly assessed on this unenhanced exam. The majority measure water attenuation. Several hyperdense lesio ns likely reflect hyperdense cysts within correlating with prior CT of November 19, 2013. Renal enlargemen t has increased since prior CT. There is no hydronephrosis. No urinary calculi are identified. Severa l hepatic cysts are noted. These are unchanged. There are gallstones within the gallbladder. Unenhanc ed images of the spleen, adrenal glands and pancreas are unremarkable. Slight dilatation of the commo n bile duct is unchanged. There is no peripancreatic or pericholecystic infiltration. There is no zen dence for a bowel obstruction. There is no ascites or lymphadenopathy. The appendix is normal. No acu te fracture or suspicious lesion is identified within the visualized skeletal structures. IMPRESSION: 1. 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 Innumerable bilateral renal lesions which favor cysts although are suboptimally assessed on this unenhanced exam. Increase in re nal enlargement since CT of November 19, 2013. No hydronephrosis. No ureteral calculi. 2. Suboptimal evaluation of the abdomen and pelvis given the lack of IV contrast. No acute process id entified. 3. Cholelithiasis. 4. No bowel obstruction. Normal appendix. ACT 112: Negative or not required by law. Electronically signed by: José Miguel Amaya M.D. 09/08/2020 9:15 PM
[2020-09-08 22:04] LABS: Appearance Urine Clear (Clear); Bacteria Urine Automated Negative (Negative); Bilirubin Urine Negative (Negative); Blood Urine Trace (Negative); Cast Urine Automated 0 /lpf (0-5); Color Urine Yellow; Glucose Urine UA 1+ (Negative); Ketones Urine Negative (Negative); Leukocyte Esterase Urine Negative (Negative); Nitrite Urine Negative (Negative); Protein Urine 3+ (Negative); RBC Urine Automated 0-4 /hpf (0-4); Specific Gravity Urine 1.012 (1.000-1.030); Urobilinogen Urine Negative (Negative); pH Urine 6.5 (4.5-7.5)
[2020-09-08 23:40] LABS: Influenza A virus by PCR Negative (Neg); Influenza B virus by PCR Negative (Neg); RSV by PCR Negative (Neg); SARS CoV2 RNA(COVID-19) InHosp NEGATIVE (Negative)
--- NOTE | 2020-09-08 23:55 | History & Physical Report ---
Date of Service September 08, 2020 Assessment & Plan (1) Syncopal episodes: Lauren Caal is a 55-year-old female with past medical history significant for hypertension, hyperlipidemia, type 2 diabetes (uncontrolled), CKD stage III, diabetic neuropathy, diabetic retinopathy; who presented to the ED following a syncopal event at work. Syncopal event: -Uncertain etiology of syncopal event while at work -Elevated troponin (0.084) on admission -Creatinine kinase 357 on admission -Glucose on admission of 259 -EKG does not demonstrate preexcitatory pathways, or arrhythmia, with QTc 469 -CT head demonstrating no acute intracranial findings, with appearance of 8 mm extra-axial density over the anterior medial left frontal lobe (potential calcified meningioma) -Echo in a.m. -EEG ordered to rule out epileptiform activity Elevated troponin: -Troponin on admission of 0.084 -EKG demonstrating no acute ST segment changes, T wave alterations -Uncertain etiology, however in the setting of syncopal event we will continue to monitor on telemetry -Troponins q8h overnight Acute kidney injury on top of CKD stage III: -Chronic kidney disease with baseline creatinine of approximately 1.2 -Creatinine on admission of 2.35 -Multiple potential etiologies including dehydration, worsening vascular disease (patient smokes and is poorly controlled diabetic), damage as result of seizure- like activity Anemia: -Hgb on admission of 11.9, with MCV of 82.6 -Previously has had multiple low hemoglobins without clear etiology or work-up -Iron panel in a.m. given marginal MCV -Potential secondary problem as a result of chronic kidney disease Type 2 diabetes: -Poorly controlled type II diabetic with last A1c in June of this year of 8.7 -Patient does not check blood sugars at home and only [place] Basaglar [place] [place] sliding scale insulin -A1c in a.m. Hypertension: -Home antihypertensive regimen including Norvasc 10 mg daily, losartan 50 mg twice daily -In the setting of acute kidney injury will hold losartan Dyslipidemia: -On Crestor 5 mg twice a week -Lipid panel in a.m. Diet: Carb consistent CODE STATUS: Full code (2) Elevated troponin: (3) Diabetes mellitus type 2, uncontrolled: (4) Hypertension: (5) Dyslipidemia: (6) SARA (acute kidney injury): (7) Tobacco use: (8) Anxiety: History of Present Illness Chief Complaint: Syncopal event Primary Care Provider: Macie Lira MD Lauren Caal is a 55-year-old female with past medical history significant for hypertension, hyperlipidemia, type 2 diabetes (uncontrolled), CKD stage III, diabetic neuropathy, diabetic retinopathy; who presented to the ED following a syncopal event at work. Earlier today patient was seen by PCP for leg cramps, following that time she returned to work and sometime this evening while at work patient had syncopal event in which she was caught by her boss and sat in chair at until EMS arrival. Patient has no recollection of this event, only knows the events leading immediately up to and then upon waking in the ED and what she has been told by others. What she can remember is that she was standing talking with her boss, felt some cramping in her legs, and then she awoke in the emergency department. From what she understands from communicating with others over the last several hours, patient started to be wobbly on her feet, and then started to collapse before her boss caught her and sat her in chair and called 911. No witnessed seizure-like activity at that time, nor rapid arousal following remaining seated, no episodes of incontinence. Patient states she has never had anything like this happen prior, and other than the leg cramps that she has been dealing with over the last several weeks she has otherwise felt well. Allergies Allergy/AdvReac Type Severity Reaction Status Date / Time alcohol Allergy Severe SHORTNESS Verified 09/08/20 17:36 OF BREATH aspirin Allergy Intermediate HIVES Verified 09/08/20 17:36 ibuprofen Allergy Mild HIVES Verified 09/08/20 17:36 metformin Allergy Mild BODY PAIN Verified 09/08/20 17:36 Penicillins Allergy Mild HIVES Verified 09/08/20 17:36 Home Medications Medication Instructions Recorded Confirmed Type Accu-Chek Fastclix Lancet Drum #102 ea NS 06/18/19 09/08/20 Rx Accu-Chek Guide Glucose Meter #1 ea NS 06/18/19 09/08/20 Rx Accu-Chek Guide test strips #100 ea NS 06/18/19 09/08/20 Rx Dexcom G6 Independent Insurance Adjuster #1 ea NS 07/14/19 09/08/20 Rx losartan 50 mg tablet 50 mg PO BID #180 tab 12/31/19 09/08/20 Rx Dexcom G6 Transmitter #1 ea NS 02/03/20 09/08/20 Rx BD Ultra-Fine Valentina Pen Needle 32 #400 ea NS 04/07/20 09/08/20 Rx gauge x 5/32" Dexcom G6 Sensor #3 box NS 04/28/20 09/08/20 Rx amlodipine 10 mg tablet 10 mg PO QAM #90 tab 07/11/20 09/08/20 Rx Basaglar KwikPen U-100 Insulin 100 14 unit SUBCUT HS #15 ml NS 09/01/20 09/08/20 Rx unit/mL (3 mL) subcutaneous ergocalciferol (vitamin D2) 1,250 mcg PO WK 09/08/20 09/08/20 History escitalopram oxalate [Lexapro] 5 mg PO QAM 09/08/20 09/08/20 History rosuvastatin [Crestor] 5 mg PO 2XWK 09/08/20 09/08/20 History Past Med/Surg History Medical History Abnormal TSH Asthma NO INHALER USED for the past 40 years. No h/o hospitalization or intubation Chronic kidney disease ? STAGE Dental abscess Diabetes mellitus type 2, uncontrolled Diabetes mellitus, type 2 IDDM Diabetic nephropathy Diabetic retinopathy, nonproliferative Disc degeneration, lumbar Dyslipidemia Fibromyalgia Hemorrhoids Hypertension Hypertension Impaired memory Tobacco use Surgical History H/O hysterectomy for benign disease History of cataract surgery R; was given 4mg versed and 100mcg fentanyl along with ketamine and benadryl due to itching from fentanyl History of section History of colonoscopy History of dilatation and curettage History of hysterectomy History of tooth extraction Family History Aunt Breast cancer Denies family history of Ovarian cancer Prostate cancer Myocardial infarction Colorectal cancer Cystic kidney disease Social History Smoking Status: Current every day smoker Tobacco Type: Cigarettes Cigarettes Per Day: 10; Second Hand Exposure: Yes ( is current smoker); Do You Dip or Chew Tobacco: No; Tobacco Cessation Education Requested by Patient: No Hx Alcohol Use: No Hx Substance Use: No Preferred Language: Kyrgyz Communication Ability: Effective Allergy Specialist Required: No Beliefs That Will Affect Care: None marital status: Current Living Situation: Spouse current occupational status: employed Other Information That Helps Us Care for You: No Feels Safe at Home: Yes Safety Concerns: Feels Safe At This Time Childhood Exposure to Second-Hand Smoke: Yes Dental Care, Regularly: Yes Physical Activity Frequency: Does not Exercise Seatbelt Use: always Sunscreen Use: Yes Assistive Devices: Denture - Upper and Glasses Review of Systems Review of Systems: All systems reviewed & are unremarkable except as noted in HPI & below Physical Exam Constitutional: WD/WN, vitals as above Eyes: PERRL, conjunctivae normal, anicteric sclerae ENMT: external ear and nose normal, oropharynx normal Respiratory: normal respiratory effort, lungs clear to auscultation Cardiovascular: Rate/Rhythm: regular rate and regular rhythm Heart Sounds: no gallop, no murmur and no cardiac rub Vessels: normal peripheral pulses; no JVD Extremities: no edema Gastrointestinal (Abdomen): normal bowel sounds, soft, nontender, no hepatosplenomegaly Musculoskeletal: no cyanosis or clubbing, extremities motor strength 5/5 Skin: no rashes, warm and dry Neurologic: PERRL, EOMI, accommodation nl, no face palsy, no dysarthria CN's II-XI intact bilaterally, deep tendon reflexes 2+ bilaterally and moves all extremities Psychiatric: Orientation: alert, oriented x 3 and cooperative Lymphatic: no cervical or axillary lymphadenopathy Results & Data Results & Data ([facility]) Vital Signs (Past 12 Hours) Vital Signs Temp Pulse Pulse Resp BP BP Pulse Ox 09/08/20 23:00 89 16 160/87 H 98 09/08/20 21:00 87 16 167/87 H 97 09/08/20 19:49 98 09/08/20 19:30 37.2 C 100 H 18 194/101 H 100 Laboratory Results 09/08/20 09/08/20 09/08/20 Range/Units 21:50 21:50 21:24 WBC (4.8-10.8) K/uL RBC (4.2-5.4) M/uL Hgb (12.0-16.0) g/dL POC Hgb (12.0-16.0) g/dl Hct (37-47) % POC Hct (37-47) % MCV (80-100) fL MCH (25-34) pg MCHC (32-36) g/dL RDW Std Deviation (36.4-46.3) fL RDW Coeff of Josias (11.5-14.5) % Plt Count (130-400) K/uL MPV (7.4-10.4) fL Immature Gran % (Auto) % Neut % (Auto) % Lymph % (Auto) % [place] % (Auto) % Eos % (Auto) % Baso % (Auto) % Neut # (Auto) (1.4-6.5) K/uL Lymph # (Auto) (1.2-3.4) K/uL [place] # (Auto) (0.11-0.59) K/uL Eos # (Auto) (0-0.5) K/uL Baso # (Auto) (0-0.2) K/uL Immature Gran # (Auto) (0.00-0.02) K/uL VBG pH (7.36-7.41) VBG pCO2 (38-50) mmHg VBG pO2 mmHg VBG HCO3 mmol/L VBG O2 Saturation % VBG Base Excess mEq/L Carboxyhemoglobin % THgb Barometric Pressure mm/Hg POC Sodium (135-144) mmol/L Sodium (136-145) mmol/L POC Potassium (3.3-5.0) mmol/L Potassium (3.5-5.1) mmol/L POC Chloride (101-112) mmol/L Chloride (98-107) mmol/L Carbon Dioxide (21-32) mmol/L POC Total CO2 (24-31) mmol/L Anion Gap (3-11) POC Anion Gap (16-25) mmol/L POC BUN (7-18) mg/dl BUN (7-18) mg/dl Creatinine (0.6-1.2) mg/dl POC Creatinine (0.6-1.3) mg/dl Est Cr Clr Drug Dosing ml/min Est GFR ( Amer) Est GFR (Non-Af Amer) BUN/Creatinine Ratio (10-20) Glucose (70-99) mg/dl POC Glucose (other) (70-99) mg/dl Calcium (8.5-10.1) mg/dl POC Ioniz Calcium Sujatha (1.12-1.32) mmol/l Total Creatine Kinase (26-192) U/L Troponin I (0-0.045) ng/ml Urine Color Yellow Urine Appearance Clear (Clear) Urine pH 6.5 (4.5-7.5) Ur Specific [place] 1.012 (1.000-1.030) Urine Protein 3+ H (Negative) Urine Glucose (UA) 1+ H (Negative) Urine Ketones Negative (Negative) Urine Blood Trace H (Negative) Urine Nitrite Negative (Negative) Urine Bilirubin Negative (Negative) Urine Urobilinogen Negative (Negative) Ur Leukocyte Esterase Negative (Negative) Urine WBC (Auto) 1-5 (0-5) /hpf Urine RBC (Auto) 0-4 (0-4) /hpf U Hyaline Cast (Auto) 0 (0-5) /lpf U Epithel Cells (Auto) 5-10 H (0-5) /lpf Urine Bacteria (Auto) Negative (Negative) COVID-19 Eval Order CovFluRsv at [facility] SARS-CoV-2 (PCR) NEGATIVE (Negative) Influenza Type A (PCR) Negative (Neg) Influenza Type B (PCR) Negative (Neg) RSV (RT-PCR) Negative (Neg) 09/08/20 09/08/20 09/08/20 Range/Units 19:47 19:42 19:42 WBC (4.8-10.8) K/uL RBC (4.2-5.4) M/uL Hgb (12.0-16.0) g/dL POC Hgb 11.2 L (12.0-16.0) g/dl Hct (37-47) % POC Hct 33 L (37-47) % MCV (80-100) fL MCH (25-34) pg MCHC (32-36) g/dL RDW Std Deviation (36.4-46.3) fL RDW Coeff of Josias (11.5-14.5) % Plt Count (130-400) K/uL MPV (7.4-10.4) fL Immature Gran % (Auto) % Neut % (Auto) % Lymph % (Auto) % [place] % (Auto) % Eos % (Auto) % Baso % (Auto) % Neut # (Auto) (1.4-6.5) K/uL Lymph # (Auto) (1.2-3.4) K/uL [place] # (Auto) (0.11-0.59) K/uL Eos # (Auto) (0-0.5) K/uL Baso # (Auto) (0-0.2) K/uL Immature Gran # (Auto) (0.00-0.02) K/uL VBG pH 7.38 (7.36-7.41) VBG pCO2 32 L (38-50) mmHg VBG pO2 62 mmHg VBG HCO3 18 mmol/L VBG O2 Saturation 91.6 % VBG Base Excess -6.0 mEq/L Carboxyhemoglobin 0.0 % THgb Barometric Pressure 729.7 mm/Hg POC Sodium 139 (135-144) mmol/L Sodium (136-145) mmol/L POC Potassium 3.9 (3.3-5.0) mmol/L Potassium (3.5-5.1) mmol/L POC Chloride 111 (101-112) mmol/L Chloride (98-107) mmol/L Carbon Dioxide (21-32) mmol/L POC Total CO2 17 L (24-31) mmol/L Anion Gap (3-11) POC Anion Gap 16.0 (16-25) mmol/L POC BUN 39 H (7-18) mg/dl BUN (7-18) mg/dl Creatinine (0.6-1.2) mg/dl POC Creatinine 2.6 H (0.6-1.3) mg/dl Est Cr Clr Drug Dosing ml/min Est GFR ( Amer) Est GFR (Non-Af Amer) BUN/Creatinine Ratio (10-20) Glucose (70-99) mg/dl POC Glucose (other) 254 H (70-99) mg/dl Calcium (8.5-10.1) mg/dl POC Ioniz Calcium Sujatha 1.16 (1.12-1.32) mmol/l Total Creatine Kinase (26-192) U/L Troponin I (0-0.045) ng/ml Urine Color Urine Appearance (Clear) Urine pH (4.5-7.5) Ur Specific [place] (1.000-1.030) Urine Protein (Negative) Urine Glucose (UA) (Negative) Urine Ketones (Negative) Urine Blood (Negative) Urine Nitrite (Negative) Urine Bilirubin (Negative) Urine Urobilinogen (Negative) Ur Leukocyte Esterase (Negative) Urine WBC (Auto) (0-5) /hpf Urine RBC (Auto) (0-4) /hpf U Hyaline Cast (Auto) (0-5) /lpf U Epithel Cells (Auto) (0-5) /lpf Urine Bacteria (Auto) (Negative) COVID-19 Eval Order SARS-CoV-2 (PCR) (Negative) Influenza Type A (PCR) (Neg) Influenza Type B (PCR) (Neg) RSV (RT-PCR) (Neg) 09/08/20 09/08/20 Range/Units 19:39 19:39 WBC 9.48 (4.8-10.8) K/uL RBC 4.14 L (4.2-5.4) M/uL Hgb 11.9 L (12.0-16.0) g/dL POC Hgb (12.0-16.0) g/dl Hct 34.2 L (37-47) % POC Hct (37-47) % MCV 82.6 (80-100) fL MCH 28.7 (25-34) pg MCHC 34.8 (32-36) g/dL RDW Std Deviation 41.3 (36.4-46.3) fL RDW Coeff of Josias 13.7 (11.5-14.5) % Plt Count 378 (130-400) K/uL MPV 10.1 (7.4-10.4) fL Immature Gran % (Auto) 0.2 % Neut % (Auto) 67.8 % Lymph % (Auto) 21.7 % [place] % (Auto) 6.6 % Eos % (Auto) 3.4 % Baso % (Auto) 0.3 % Neut # (Auto) 6.42 (1.4-6.5) K/uL Lymph # (Auto) 2.06 (1.2-3.4) K/uL [place] # (Auto) 0.63 H (0.11-0.59) K/uL Eos # (Auto) 0.32 (0-0.5) K/uL Baso # (Auto) 0.03 (0-0.2) K/uL Immature Gran # (Auto) 0.02 (0.00-0.02) K/uL VBG pH (7.36-7.41) VBG pCO2 (38-50) mmHg VBG pO2 mmHg VBG HCO3 mmol/L VBG O2 Saturation % VBG Base Excess mEq/L Carboxyhemoglobin % THgb Barometric Pressure mm/Hg POC Sodium (135-144) mmol/L Sodium 139 (136-145) mmol/L POC Potassium (3.3-5.0) mmol/L Potassium 3.8 (3.5-5.1) mmol/L POC Chloride (101-112) mmol/L Chloride 112 H (98-107) mmol/L Carbon Dioxide 19 L (21-32) mmol/L POC Total CO2 (24-31) mmol/L Anion Gap 8.0 (3-11) POC Anion Gap (16-25) mmol/L POC BUN (7-18) mg/dl BUN 45 H (7-18) mg/dl Creatinine 2.35 H (0.6-1.2) mg/dl POC Creatinine (0.6-1.3) mg/dl Est Cr Clr Drug Dosing 23.9 ml/min Est GFR ( Amer) 26.0 Est GFR (Non-Af Amer) 22.4 BUN/Creatinine Ratio 19.1 (10-20) Glucose 259 H (70-99) mg/dl POC Glucose (other) (70-99) mg/dl Calcium 8.5 (8.5-10.1) mg/dl POC Ioniz Calcium Sujatha (1.12-1.32) mmol/l Total Creatine Kinase 357 H (26-192) U/L Troponin I 0.084 H* (0-0.045) ng/ml Urine Color Urine Appearance (Clear) Urine pH (4.5-7.5) Ur Specific [place] (1.000-1.030) Urine Protein (Negative) Urine Glucose (UA) (Negative) Urine Ketones (Negative) Urine Blood (Negative) Urine Nitrite (Negative) Urine Bilirubin (Negative) Urine Urobilinogen (Negative) Ur Leukocyte Esterase (Negative) Urine WBC (Auto) (0-5) /hpf Urine RBC (Auto) (0-4) /hpf U Hyaline Cast (Auto) (0-5) /lpf U Epithel Cells (Auto) (0-5) /lpf Urine Bacteria (Auto) (Negative) COVID-19 Eval Order SARS-CoV-2 (PCR) (Negative) Influenza Type A (PCR) (Neg) Influenza Type B (PCR) (Neg) RSV (RT-PCR) (Neg) Medications Administered Current Inpatient Medications Acetaminophen (Acetaminophen 325 Mg Tab) 650 mg PO Q4H PRN PRN Reason: pain/fever Stop: 10/09/20 00:55 Al Hydrox/Mg Hydrox/Simethicone (Aluminum/Magnesium Susp 30 Ml Udc) 30 ml PO Q6H PRN PRN Reason: Dyspepsia Stop: 10/09/20 00:55 Amlodipine Besylate (Amlodipine Besylate 5 Mg Tab) 10 mg PO QAM [facility] Stop: 10/09/20 08:59 Escitalopram Oxalate (Escitalopram Oxalate 10 Mg Tab) 5 mg PO QAM [facility] Stop: 10/09/20 08:59 Losartan Potassium (Losartan Potassium 50 Mg Tab) 50 mg PO BID [facility] Stop: 10/09/20 08:59 Magnesium Hydroxide (Magnesium Hydroxide Susp 30 Ml Udc) 30 ml PO Q6H PRN PRN Reason: Constipation Stop: 10/09/20 00:55 Miscellaneous (Remove Nicoderm Patch) 1 ea N/A DAILY@0859 [facility] Stop: 10/09/20 08:58 Nicotine (Nicotine 14 Mg/24 Hr Patch) 14 mg TD QAM [facility] Stop: 10/09/20 08:59 Nitroglycerin (Nitroglycerin Sl 0.4 Mg/Tab Tab) 0.4 mg SL UD PRN PRN Reason: Chest Pain Stop: 10/09/20 00:55 Ondansetron HCl (Ondansetron Inj 2 Mg/Ml 2 Ml Vial) 4 mg IV Q6H PRN PRN Reason: Nausea Stop: 10/09/20 00:55 Polyethylene Glycol (Polyethylene (Miralax) 17 Gm Pack) 17 gm PO DAILY PRN PRN Reason: Constipation Stop: 10/09/20 00:55 Rosuvastatin Calcium (Rosuvastatin Calcium 5 Mg Tab) 5 mg PO SuWe@0900 [facility] Stop: 10/11/20 08:59 Supervising Physician Co-Signing Physician Notes Attending addendum: I have physically seen this patient, have supervised the medical residents activities, and agree with the H&P unless as otherwise noted. Assessment and Plan: Syncope- CT head negative for acute bleeding even EEG ordered Pursue cardiac work-up Elevated troponin- The patient will be admitted to telemetry for serial cardiac enzymes, serial EKG's, cardiac rhythm monitoring and a 2-D echocardiogram with Dopplers. Troponin initially 0.084 upon admission Diabetes mellitus- Continue Basaglar insulin 14 units subcu at bedtime Check a hemoglobin A1 placed on Accu-Cheks before meals and at bedtime with NovoLog coverage for scale c Acute kidney injury on chronic kidney disease stage III- Creatinine 2.35 upon admission, with baseline 1.2. Rehydrate with IV fluids Avoiding nephrotoxic agents, and recheck in a.m. Hyperlipidemia- Continue rosuvastatin Check a fasting lipid panel Remaining orders and notations as noted Resident Activity Tracking Resident Involvement: Resident Care Provided and Underwriting Support Manager Coverage Note Care Provided: Adult Hospital Medicine (1) Syncopal episodes Syncope type: unspecified Qualified Code(s): R55 - Syncope and collapse
--- NOTE | 2020-09-09 00:14 | Emergency Department Note ---
History of Present Illness General Chief complaint: Vertigo Stated complaint: FOOT PAIN, ANXIETY, Time Seen by Provider: 09/08/20 19:27 History of Present Illness Provider complaint: Dizziness Onset (ago): hour(s) 2 Severity: moderate Maximum Pain Intensity: 5 Associated symptoms: + nausea/vomiting and + weakness; no chest pain, no cough, no fever/chills and no headaches 55-year-old female presents emergency department for dizziness. Patient was working at [employer] where she works in approximately 2 hours ago felt severe dizziness like the room was spinning. Patient states she started feeling nauseous. She denies any headache. She denies any chest pain or difficulty breathing. No fevers or loss of taste or smell. Patient denies any exposure to any fumes at the restaurant. Home Medications Medication Instructions Recorded Confirmed Type Accu-Chek Fastclix Lancet Drum #102 ea NS 06/18/19 09/08/20 Rx Accu-Chek Guide Glucose Meter #1 ea NS 06/18/19 09/08/20 Rx Accu-Chek Guide test strips #100 ea NS 06/18/19 09/08/20 Rx Dexcom G6 Operations Support Analyst #1 ea NS 07/14/19 09/08/20 Rx losartan 50 mg tablet 50 mg PO BID #180 tab 12/31/19 09/08/20 Rx Dexcom G6 Transmitter #1 ea NS 02/03/20 09/08/20 Rx BD Ultra-Fine Valentina Pen Needle 32 #400 ea NS 04/07/20 09/08/20 Rx gauge x 5/32" Dexcom G6 Sensor #3 box NS 04/28/20 09/08/20 Rx amlodipine 10 mg tablet 10 mg PO QAM #90 tab 07/11/20 09/08/20 Rx Basaglar KwikPen U-100 Insulin 100 14 unit SUBCUT HS #15 ml NS 09/01/20 09/08/20 Rx unit/mL (3 mL) subcutaneous ergocalciferol (vitamin D2) 1,250 mcg PO WK 09/08/20 09/08/20 History escitalopram oxalate [Lexapro] 5 mg PO QAM 09/08/20 09/08/20 History rosuvastatin [Crestor] 5 mg PO 2XWK 09/08/20 09/08/20 History Allergies Allergy/AdvReac Type Severity Reaction Status Date / Time alcohol Allergy Severe SHORTNESS Verified 09/08/20 17:36 OF BREATH aspirin Allergy Intermediate HIVES Verified 09/08/20 17:36 ibuprofen Allergy Mild HIVES Verified 09/08/20 17:36 metformin Allergy Mild BODY PAIN Verified 09/08/20 17:36 Penicillins Allergy Mild HIVES Verified 09/08/20 17:36 Past Med/Surg History Medical History Abnormal TSH Asthma NO INHALER USED for the past 40 years. No h/o hospitalization or intubation Chronic kidney disease ? STAGE Dental abscess Diabetes mellitus type 2, uncontrolled Diabetes mellitus, type 2 IDDM Diabetic nephropathy Diabetic retinopathy, nonproliferative Disc degeneration, lumbar Dyslipidemia Fibromyalgia Hemorrhoids Hypertension Hypertension Impaired memory Tobacco use Surgical History H/O hysterectomy for benign disease History of cataract surgery R; was given 4mg versed and 100mcg fentanyl along with ketamine and benadryl due to itching from fentanyl History of section History of colonoscopy History of dilatation and curettage History of hysterectomy History of tooth extraction Family History Aunt Breast cancer Denies family history of Ovarian cancer Prostate cancer Myocardial infarction Colorectal cancer Cystic kidney disease Social History Smoking Status: Current every day smoker Tobacco Type: Cigarettes Cigarettes Per Day: 10; Second Hand Exposure: No; Hx Alcohol Use: No Hx Substance Use: No Preferred Language: Greenlandic Communication Ability: Effective Lathe Scalper Operator Required: No Beliefs That Will Affect Care: None marital status: Current Living Situation: Spouse current occupational status: employed Feels Safe at Home: Yes Childhood Exposure to Second-Hand Smoke: Yes Dental Care, Regularly: Yes Physical Activity Frequency: Does not Exercise Seatbelt Use: always Sunscreen Use: Yes Assistive Devices: None Review of Systems A total of 10 systems reviewed and were otherwise negative Physical Exam Vital Signs Vital Signs - 24 hr 09/08/20 19:30 09/08/20 19:49 09/08/20 21:00 Temperature 37.2 C Temperature Source Oral Pulse Rate 100 H Pulse Rate [Right Finger] 87 Respiratory Rate 18 16 Respiratory Depth Normal Normal Blood Pressure 194/101 H Blood Pressure [Right Arm] 167/87 H Blood Pressure Mean 132 Blood Pressure Mean [Right Arm] 113 Blood Pressure Position Lying Blood Pressure Position [Right Arm] Lying Pulse Oximetry 100 98 97 Oxygen Delivery Method Room Air Room Air Room Air Sepsis Recent Fever Within 48 Hours No Sepsis New/Unexplained Change in Mental Status No Sepsis Action Taken by Nursing No Action Required 09/08/20 23:00 Temperature Temperature Source Pulse Rate Pulse Rate [Right Finger] 89 Respiratory Rate 16 Respiratory Depth Normal Blood Pressure Blood Pressure [Right Arm] 160/87 H Blood Pressure Mean Blood Pressure Mean [Right Arm] 111 Blood Pressure Position Blood Pressure Position [Right Arm] Lying Pulse Oximetry 98 Oxygen Delivery Method Room Air Sepsis Recent Fever Within 48 Hours Sepsis New/Unexplained Change in Mental Status Sepsis Action Taken by Nursing Physical Exam GENERAL: Patient appears distressed and is crying. HENT: Exam performed. -Head: Normocephalic and atraumatic. -Right Ear: External ear normal. No mastoid tenderness. -Left Ear: External ear normal. No mastoid tenderness. -Mouth/Throat: The oropharynx is clear and moist. No trismus in the jaw. No dental abscesses or uvula swelling. No oropharyngeal exudate or tonsillar abscesses. EYES: Conjunctivae and EOM are normal. Pupils are equal, round, and reactive to light. Right eye exhibits no discharge. Left eye exhibits no discharge. No scler al icterus. NECK: Normal range of motion. Neck supple. No JVD present. No spinous process tenderness present. No carotid bruit present. No rigidity. No tracheal deviation and normal range of motion present. No Brudzinski's sign and no Kernig's sign noted. CV: Normal rate, regular rhythm, normal heart sounds and intact distal pulses. There is no peripheral edema. Palpable radial pulses bue. PULM/CHEST: Effort normal and breath sounds normal. No respiratory distress. No stridor. She has no wheezes. She has no rales. -Chest Wall: She exhibits no tenderness. ABD: The abdomen is soft. Bowel sounds are normal. She has no distension. No mass is present. There is no tenderness. There is no rebound, no guarding, no Rao's sign and no tenderness at McBurney's point. Rovsig negative MUSC/SKEL: Normal range of motion. There is no peripheral edema, tenderness or deformity. LYMPH: No cervical adenopathy. NEURO: She is alert and oriented to person, place, and time. She has normal strength. No cranial nerve deficit or sensory deficit. Coordination and gait normal. GCS eye subscore is 4. GCS verbal subscore is 5. GCS motor subscore is 6. Cerebellar tests wnl. SKIN: Skin is warm and dry. She is not diaphoretic. Course Course 1926: The patient was evaluated in room C8. A complete history and physical exam was performed Cardiac monitoring: An order was placed for continuous cardiac monitoring. The monitor shows a rate of 90 with sinus rhythm 2200: Vital signs stable. Patient reports feeling better after IV Zofran and meclizine, she states her dizziness has improved significantly. Patient's labs do show an acute kidney injury. Imaging is within normal limits. Patient does states she has a history of polycystic kidney disease. [facility] been [facility]. Administered Medications Discontinued Medications Sodium Chloride (Nss 1000ml) 1,000 mls @ 999 mls/hr IV .Q1H1M ONE Stop: 09/08/20 20:28 Last Infusion: 09/08/20 21:35 Dose: 0 mls/hr Documented by: [id number] Admin: 09/08/20 19:51 Dose: 999 mls/hr Documented by: [id number] Meclizine HCl (Meclizine Hcl 25 Mg Tab) 25 mg PO NOW STA Stop: 09/08/20 19:29 Last Admin: 09/08/20 19:51 Dose: 25 mg Documented by: [id number] Ondansetron HCl (Ondansetron Inj 2 Mg/Ml 2 Ml Vial) 4 mg IV NOW STA Stop: 09/08/20 19:29 Last Admin: 09/08/20 19:51 Dose: 4 mg Documented by: [id number] Medical Decision Making Laboratory Data Result diagrams: 09/08/20 19:39 09/08/20 19:39 Lab Results 09/08/20 09/08/20 09/08/20 Range/Units 19:39 19:39 19:42 WBC 9.48 (4.8-10.8) K/uL RBC 4.14 L (4.2-5.4) M/uL Hgb 11.9 L (12.0-16.0) g/dL POC Hgb (12.0-16.0) g/dl Hct 34.2 L (37-47) % POC Hct (37-47) % MCV 82.6 (80-100) fL MCH 28.7 (25-34) pg MCHC 34.8 (32-36) g/dL RDW Std Deviation 41.3 (36.4-46.3) fL RDW Coeff of Josias 13.7 (11.5-14.5) % Plt Count 378 (130-400) K/uL MPV 10.1 (7.4-10.4) fL Immature Gran % (Auto) 0.2 % Neut % (Auto) 67.8 % Lymph % (Auto) 21.7 % Conway % (Auto) 6.6 % Eos % (Auto) 3.4 % Baso % (Auto) 0.3 % Neut # (Auto) 6.42 (1.4-6.5) K/uL Lymph # (Auto) 2.06 (1.2-3.4) K/uL Conway # (Auto) 0.63 H (0.11-0.59) K/uL Eos # (Auto) 0.32 (0-0.5) K/uL Baso # (Auto) 0.03 (0-0.2) K/uL Immature Gran # (Auto) 0.02 (0.00-0.02) K/uL VBG pH (7.36-7.41) VBG pCO2 (38-50) mmHg VBG pO2 mmHg VBG HCO3 mmol/L VBG O2 Saturation % VBG Base Excess mEq/L Carboxyhemoglobin 0.0 % THgb Barometric Pressure mm/Hg POC Sodium (135-144) mmol/L Sodium 139 (136-145) mmol/L POC Potassium (3.3-5.0) mmol/L Potassium 3.8 (3.5-5.1) mmol/L POC Chloride (101-112) mmol/L Chloride 112 H (98-107) mmol/L Carbon Dioxide 19 L (21-32) mmol/L POC Total CO2 (24-31) mmol/L Anion Gap 8.0 (3-11) POC Anion Gap (16-25) mmol/L POC BUN (7-18) mg/dl BUN 45 H (7-18) mg/dl Creatinine 2.35 H (0.6-1.2) mg/dl POC Creatinine (0.6-1.3) mg/dl Est Cr Clr Drug Dosing 23.9 ml/min Est GFR ( Amer) 26.0 Est GFR (Non-Af Amer) 22.4 BUN/Creatinine Ratio 19.1 (10-20) Glucose 259 H (70-99) mg/dl POC Glucose (other) (70-99) mg/dl Calcium 8.5 (8.5-10.1) mg/dl POC Ioniz Calcium Sujatha (1.12-1.32) mmol/l Troponin I 0.084 H* (0-0.045) ng/ml Urine Color Urine Appearance (Clear) Urine pH (4.5-7.5) Ur Specific [place] (1.000-1.030) Urine Protein (Negative) Urine Glucose (UA) (Negative) Urine Ketones (Negative) Urine Blood (Negative) Urine Nitrite (Negative) Urine Bilirubin (Negative) Urine Urobilinogen (Negative) Ur Leukocyte Esterase (Negative) Urine WBC (Auto) (0-5) /hpf Urine RBC (Auto) (0-4) /hpf U Hyaline Cast (Auto) (0-5) /lpf U Epithel Cells (Auto) (0-5) /lpf Urine Bacteria (Auto) (Negative) COVID-19 Eval Order SARS-CoV-2 (PCR) (Negative) Influenza Type A (PCR) (Neg) Influenza Type B (PCR) (Neg) RSV (RT-PCR) (Neg) 09/08/20 09/08/20 09/08/20 Range/Units 19:42 19:47 21:24 WBC (4.8-10.8) K/uL RBC (4.2-5.4) M/uL Hgb (12.0-16.0) g/dL POC Hgb 11.2 L (12.0-16.0) g/dl Hct (37-47) % POC Hct 33 L (37-47) % MCV (80-100) fL MCH (25-34) pg MCHC (32-36) g/dL RDW Std Deviation (36.4-46.3) fL RDW Coeff of Josias (11.5-14.5) % Plt Count (130-400) K/uL MPV (7.4-10.4) fL Immature Gran % (Auto) % Neut % (Auto) % Lymph % (Auto) % Conway % (Auto) % Eos % (Auto) % Baso % (Auto) % Neut # (Auto) (1.4-6.5) K/uL Lymph # (Auto) (1.2-3.4) K/uL Conway # (Auto) (0.11-0.59) K/uL Eos # (Auto) (0-0.5) K/uL Baso # (Auto) (0-0.2) K/uL Immature Gran # (Auto) (0.00-0.02) K/uL VBG pH 7.38 (7.36-7.41) VBG pCO2 32 L (38-50) mmHg VBG pO2 62 mmHg VBG HCO3 18 mmol/L VBG O2 Saturation 91.6 % VBG Base Excess -6.0 mEq/L Carboxyhemoglobin % THgb Barometric Pressure 729.7 mm/Hg POC Sodium 139 (135-144) mmol/L Sodium (136-145) mmol/L POC Potassium 3.9 (3.3-5.0) mmol/L Potassium (3.5-5.1) mmol/L POC Chloride 111 (101-112) mmol/L Chloride (98-107) mmol/L Carbon Dioxide (21-32) mmol/L POC Total CO2 17 L (24-31) mmol/L Anion Gap (3-11) POC Anion Gap 16.0 (16-25) mmol/L POC BUN 39 H (7-18) mg/dl BUN (7-18) mg/dl Creatinine (0.6-1.2) mg/dl POC Creatinine 2.6 H (0.6-1.3) mg/dl Est Cr Clr Drug Dosing ml/min Est GFR ( Amer) Est GFR (Non-Af Amer) BUN/Creatinine Ratio (10-20) Glucose (70-99) mg/dl POC Glucose (other) 254 H (70-99) mg/dl Calcium (8.5-10.1) mg/dl POC Ioniz Calcium Sujatha 1.16 (1.12-1.32) mmol/l Troponin I (0-0.045) ng/ml Urine Color Yellow Urine Appearance Clear (Clear) Urine pH 6.5 (4.5-7.5) Ur Specific [place] 1.012 (1.000-1.030) Urine Protein 3+ H (Negative) Urine Glucose (UA) 1+ H (Negative) Urine Ketones Negative (Negative) Urine Blood Trace H (Negative) Urine Nitrite Negative (Negative) Urine Bilirubin Negative (Negative) Urine Urobilinogen Negative (Negative) Ur Leukocyte Esterase Negative (Negative) Urine WBC (Auto) 1-5 (0-5) /hpf Urine RBC (Auto) 0-4 (0-4) /hpf U Hyaline Cast (Auto) 0 (0-5) /lpf U Epithel Cells (Auto) 5-10 H (0-5) /lpf Urine Bacteria (Auto) Negative (Negative) COVID-19 Eval Order SARS-CoV-2 (PCR) (Negative) Influenza Type A (PCR) (Neg) Influenza Type B (PCR) (Neg) RSV (RT-PCR) (Neg) 09/08/20 09/08/20 Range/Units 21:50 21:50 WBC (4.8-10.8) K/uL RBC (4.2-5.4) M/uL Hgb (12.0-16.0) g/dL POC Hgb (12.0-16.0) g/dl Hct (37-47) % POC Hct (37-47) % MCV (80-100) fL MCH (25-34) pg MCHC (32-36) g/dL RDW Std Deviation (36.4-46.3) fL RDW Coeff of Josias (11.5-14.5) % Plt Count (130-400) K/uL MPV (7.4-10.4) fL Immature Gran % (Auto) % Neut % (Auto) % Lymph % (Auto) % Conway % (Auto) % Eos % (Auto) % Baso % (Auto) % Neut # (Auto) (1.4-6.5) K/uL Lymph # (Auto) (1.2-3.4) K/uL Conway # (Auto) (0.11-0.59) K/uL Eos # (Auto) (0-0.5) K/uL Baso # (Auto) (0-0.2) K/uL Immature Gran # (Auto) (0.00-0.02) K/uL VBG pH (7.36-7.41) VBG pCO2 (38-50) mmHg VBG pO2 mmHg VBG HCO3 mmol/L VBG O2 Saturation % VBG Base Excess mEq/L Carboxyhemoglobin % THgb Barometric Pressure mm/Hg POC Sodium (135-144) mmol/L Sodium (136-145) mmol/L POC Potassium (3.3-5.0) mmol/L Potassium (3.5-5.1) mmol/L POC Chloride (101-112) mmol/L Chloride (98-107) mmol/L Carbon Dioxide (21-32) mmol/L POC Total CO2 (24-31) mmol/L Anion Gap (3-11) POC Anion Gap (16-25) mmol/L POC BUN (7-18) mg/dl BUN (7-18) mg/dl Creatinine (0.6-1.2) mg/dl POC Creatinine (0.6-1.3) mg/dl Est Cr Clr Drug Dosing ml/min Est GFR ( Amer) Est GFR (Non-Af Amer) BUN/Creatinine Ratio (10-20) Glucose (70-99) mg/dl POC Glucose (other) (70-99) mg/dl Calcium (8.5-10.1) mg/dl POC Ioniz Calcium Sujatha (1.12-1.32) mmol/l Troponin I (0-0.045) ng/ml Urine Color Urine Appearance (Clear) Urine pH (4.5-7.5) Ur Specific [place] (1.000-1.030) Urine Protein (Negative) Urine Glucose (UA) (Negative) Urine Ketones (Negative) Urine Blood (Negative) Urine Nitrite (Negative) Urine Bilirubin (Negative) Urine Urobilinogen (Negative) Ur Leukocyte Esterase (Negative) Urine WBC (Auto) (0-5) /hpf Urine RBC (Auto) (0-4) /hpf U Hyaline Cast (Auto) (0-5) /lpf U Epithel Cells (Auto) (0-5) /lpf Urine Bacteria (Auto) (Negative) COVID-19 Eval Order CovFluRsv at [facility] SARS-CoV-2 (PCR) NEGATIVE (Negative) Influenza Type A (PCR) Negative (Neg) Influenza Type B (PCR) Negative (Neg) RSV (RT-PCR) Negative (Neg) Imaging Data Radiologist's Impression: CT OF THE ABDOMEN AND PELVIS WITHOUT CONTRAST CLINICAL HISTORY: Dizziness. Acute kidney injury. COMPARISON STUDY: CT of the abdomen and pelvis November 19, 2013. TECHNIQUE: Axial images of the abdomen and pelvis were obtained without IV contrast. Images were reviewed in the axial, sagittal, and coronal planes. Automated exposure control was utilized for the study. A dose lowering tech nique was utilized adhering to the principles of ALARA. FINDINGS: Lung bases are unremarkable. No pneumatosis, free air or portal venous gas is present. Both kidneys are enlarged and contain innumerable lesions which favor cysts although these are suboptimally assessed on this unenhanced exam. Th e majority measure water attenuation. Several hyperdense lesions likely reflect hyperdense cysts within correlating with prior CT of November 19, 2013. Renal enlargement has increased since prior CT. There is no hydronephrosis. No urinary calculi are identified. Several hepatic cysts are noted. These are unchanged. There are gallstones within the gallbladder. Unenhanced images of the spleen, adrenal glands and pancreas are unremarkable. Slight dilatation of the common bile duct is unchanged. There is no peripancreatic or pericholecystic infiltration. There is no evidence for a bowel obstruction. There is no ascites or lymphadenopathy. The appendix is normal. No acute fracture or suspicious lesion is identified within the visualized skeletal structures. IMPRESSION: 1. 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 Innumerable bilateral renal lesions which favor cysts although are suboptimally assessed on this unenhanced exam. Increase in renal enlargement since CT of November 19, 2013. No hydronephrosis. No ureteral calculi. 2. Suboptimal evaluation of the abdomen and pelvis given the lack of IV contrast. No acute process identified. 3. Cholelithiasis. 4. No bowel obstruction. Normal appendix. ACT 112: Negative or not required by law. Electronically signed by: José Miguel Amaya M.D. 09/08/2020 9:15 PM Dictated: 09/08/202105Transcribed: 09/08/202105 CT OF THE HEAD WITHOUT CONTRAST CLINICAL HISTORY: Dizziness. COMPARISON STUDY: No previous studies for comparison. CT DOSE: 614.27 mGy.cm TECHNIQUE: Helical axial images of the head were obtained without IV contrast. Automated exposure control was utilized for the study. A dose lowering techn ique was utilized adhering to the principles of ALARA. FINDINGS: No acute intracranial hemorrhage, midline shift or mass effect is present. Ventricular system is normal. Basilar cisterns are patent. There are no extra axial collections. There is bilateral basal ganglia calcification. There are no findings to suggest acute dural sinus thrombosis or acute territorial infarct. There is an 8 mm calcified extra axial density overlying the anterior medial left frontal lobe on axial image 24. There are no significant calvarial abnormalities. IMPRESSION: 1. No acute intracranial findings. 2. 8 mm extra-axial density overlying the anteromedial left frontal lobe. This favors a calcified meningioma. This is benign. ACT 112: Negative or not required by law. Electronically signed by: José Miguel Amaya M.D. 09/08/2020 8:48 PM Dictated: 09/08/202045Transcribed: 09/08/202045 ECG Data Indication: + other (Dizziness) Rate (beats per minute): 95 Rhythm: + normal sinus ECG Intervals/blocks: + Normal QRS, + Normal CO and + Normal QT-c ECG ST segments: + Normal ST segments [facility] Narrative 192: The patient was evaluated in room C8. A complete history and physical exam was performed Cardiac monitoring: An order was placed for continuous cardiac monitoring. The monitor shows a rate of 90 with sinus rhythm 2200: Vital signs stable. Patient reports feeling better after IV Zofran and meclizine, she states her dizziness has improved significantly. Patient's labs do show an acute kidney injury. Imaging is within normal limits. Patient does states she has a history of polycystic kidney disease. [facility] team has been notified. Impression & Plan SARA (acute kidney injury) Discharge Plan Visit Data Chief Complaint: Vertigo Stated Complaint: FOOT PAIN, ANXIETY, ED Provider: Gentry Rivera Discharge Problem: SARA (acute kidney injury) Patient Disposition: Being Evaluated by Hospitalist Forms Stand Alone Forms: My [facility] Prescriptions Prescriptions: No Action (DME) lancets [Accu-Chek Fastclix Lancet Drum] misc See Rx Instructions .ROUTE .MEDSUPPLY Qty: 102 RF: 3 (DME) Accu-Chek Guide test strips strip See Rx Instructions .ROUTE .MEDSUPPLY Qty: 100 RF: 3 (DME) blood-glucose meter [Accu-Chek Guide Glucose Meter] misc See Rx Instructions .ROUTE .MEDSUPPLY Qty: 1 RF: 0 (DME) Dexcom G6 Operations Support Analyst Misc See Rx Instructions .ROUTE .MEDSUPPLY Qty: 1 RF: 0 (DME) Dexcom G6 Transmitter Device See Rx Instructions .ROUTE .MEDSUPPLY Qty: 1 RF: 3 (DME) pen needle, diabetic [BD Ultra-Fine Valentina Pen Needle] 32 gauge x 5/32" needle See Rx Instructions .ROUTE .MEDSUPPLY Qty: 400 RF: 1 amlodipine 10 mg tablet 10 mg PO QAM Qty: 90 RF: 1 Basaglar KwikPen U-100 Insulin 100 unit/mL (3 mL) insulin pen 14 unit SUBCUT HS Qty: 15 RF: 5 losartan 50 mg tablet 50 mg PO BID Qty: 180 RF: 1 (DME) Dexcom G6 Sensor Device See Rx Instructions .ROUTE .MEDSUPPLY Qty: 3 RF: 3 ergocalciferol (vitamin D2) 1,250 mcg (50,000 unit) capsule 1,250 mcg PO WK RF: 0 rosuvastatin [Crestor] 5 mg tablet 5 mg PO 2XWK RF: 0 escitalopram oxalate [Lexapro] 5 mg tablet 5 mg PO QAM RF: 0 Referrals Referrals: Macie Brand MD [Primary Care Provider] -
[2020-09-09] MEDS ORDERED: ALUMINUM/MAGNESIUM SUSP 30 ML UDC PO PRN (00:56)
[2020-09-09] MEDS ORDERED: POLYETHYLENE (MIRALAX) 17 GM PACK PO PRN (00:56)
[2020-09-09] MEDS ORDERED: NITROGLYCERIN SL 0.4 MG/TAB TAB SL PRN (00:56)
[2020-09-09] MEDS ORDERED: ONDANSETRON INJ 2 MG/ML 2 ML VIAL IV PRN (00:56)
[2020-09-09] MEDS ORDERED: ACETAMINOPHEN 325 MG TAB PO PRN (00:56)
[2020-09-09] MEDS ORDERED: MAGNESIUM HYDROXIDE SUSP 30 ML UDC PO PRN (00:56)
[2020-09-09] MEDS: SODIUM CHLORIDE 0.9% 1000ML 1,000 ML IV SCH ×2 (03:00→16:28)
[2020-09-09] MEDS ORDERED: GLUCOSE 40% GEL 15 GM TUBE PO PRN (04:28)
[2020-09-09] MEDS ORDERED: CARBOHYDRATES FOR HYPOGLYCEMIA PO PRN (04:28)
[2020-09-09] MEDS ORDERED: DEXTROSE 50% 50 ML SYRINGE IV PRN (04:28)
[2020-09-09] MEDS ORDERED: GLUCOSE 10 TABS/TUBE PO PRN (04:28)
[2020-09-09] MEDS ORDERED: GLUCAGON FOR INJ 1 MG VIAL SQ PRN (04:28)
[2020-09-09 04:34] LABS: Basophils # (auto) 0.02 K/uL (0-0.2); Basophils % (auto) 0.2 %; Eosinophils # (auto) 0.37 K/uL (0-0.5); Eosinophils % (auto) 3.7 %; Hematocrit (blood only) 34.8 % (37-47); Hemoglobin 11.9 g/dL (12.0-16.0); Immature Granulocytes # (auto) 0.02 K/uL (0.00-0.02); Immature Granulocytes % (auto) 0.2 %; Lymphocytes # (auto) 2.71 K/uL (1.2-3.4); Lymphocytes % (auto) 27.1 %; Mean Corpuscular Hemoglobin 28.2 pg (25-34); Mean Corpuscular Hgb Conc 34.2 g/dL (32-36); Mean Corpuscular Volume 82.5 fL (80-100); Mean Platelet Volume 10.2 fL (7.4-10.4); Monocytes # (auto) 0.81 K/uL (0.11-0.59); Monocytes % (auto) 8.1 %; Neutrophils # (auto) 6.07 K/uL (1.4-6.5); Neutrophils % (auto) 60.7 %; Platelet Count 373 K/uL (130-400); RDW Coefficient of Variation 13.6 % (11.5-14.5); RDW Standard Deviation 41.2 fL (36.4-46.3); Red Blood Count 4.22 M/uL (4.2-5.4)
[2020-09-09 04:55] LABS: Calcium 8.3 mg/dl (8.5-10.1); Creatinine Clr Calc Pharmacy 24.7 ml/min; Est GFR (African American) 29.7; Est GFR (Non-African American) 25.7; Magnesium 1.8 mg/dl (1.8-2.4); Potassium 3.8 mmol/L (3.5-5.1)
[2020-09-09] MEDS: INSULIN ASPART 100 UNITS/ML 3 ML PEN SC SCH ×5 (05:02→22:17)
[2020-09-09 05:13] LABS: Phosphorus 4.2 mg/dl (2.5-4.9); Troponin I 0.102 ng/ml (0-0.045)
[2020-09-09 05:44] LABS: Estimated Average Glucose 203 mg/dl; Hemoglobin A1C 8.7 % (4.5-5.6)
[2020-09-09] MEDS ORDERED: LOSARTAN POTASSIUM 50 MG TAB PO SCH (09:00)
[2020-09-09] MEDS: ESCITALOPRAM OXALATE 10 MG TAB PO SCH (09:14)
[2020-09-09] MEDS: amLODIPine BESYLATE 5 MG TAB PO SCH (09:15)
[2020-09-09] MEDS: NICOTINE 14 MG/24 HR PATCH TD SCH (09:15)
--- NOTE | 2020-09-09 10:58 | XCELERA ---
[id number] [id number]
--- NOTE | 2020-09-09 11:18 | Electroencephalogram ---
EEG Procedure Note Date of Service September 09, 2020 Start / End Times Start Time: 5:20am End Time: 5:40am Referring Physician Chaka Ponce History syncope Home Medication List Medication Instructions Recorded Confirmed Type Accu-Chek Fastclix Lancet Drum #102 ea NS 06/18/19 09/08/20 Rx Accu-Chek Guide Glucose Meter #1 ea NS 06/18/19 09/08/20 Rx Accu-Chek Guide test strips #100 ea NS 06/18/19 09/08/20 Rx Dexcom G6 Senior Sales Engineer #1 ea NS 07/14/19 09/08/20 Rx losartan 50 mg tablet 50 mg PO BID #180 tab 12/31/19 09/08/20 Rx Dexcom G6 Transmitter #1 ea NS 02/03/20 09/08/20 Rx BD Ultra-Fine Valentina Pen Needle 32 #400 ea NS 04/07/20 09/08/20 Rx gauge x 5/32" Dexcom G6 Sensor #3 box NS 04/28/20 09/08/20 Rx amlodipine 10 mg tablet 10 mg PO QAM #90 tab 07/11/20 09/08/20 Rx Basaglar KwikPen U-100 Insulin 100 14 unit SUBCUT HS #15 ml NS 09/01/20 09/08/20 Rx unit/mL (3 mL) subcutaneous ergocalciferol (vitamin D2) 1,250 mcg PO WK 09/08/20 09/08/20 History escitalopram oxalate [Lexapro] 5 mg PO QAM 09/08/20 09/08/20 History rosuvastatin [Crestor] 5 mg PO 2XWK 09/08/20 09/08/20 History Inpatient Medication List Amlodipine Besylate (Amlodipine Besylate 5 Mg Tab) 10 mg PO QAM ARI Stop: 10/09/20 08:59 Last Admin: 09/09/20 09:15 Dose: 10 mg Documented by: [id number] Escitalopram Oxalate (Escitalopram Oxalate 10 Mg Tab) 5 mg PO QAM ARI Stop: 10/09/20 08:59 Last Admin: 09/09/20 09:14 Dose: 5 mg Documented by: [id number] Sodium Chloride (Nss 1000ml) 1,000 mls @ 80 mls/hr IV .[id number] ARI Stop: 10/09/20 02:59 Last Admin: 09/09/20 03:00 Dose: 80 mls/hr Documented by: [id number] Insulin Aspart (Insulin Aspart 100 Units/Ml 3 Ml Pen) 0 units SC ACHS ARI Stop: 10/09/20 04:29 Last Admin: 09/09/20 09:15 Dose: Not Given Documented by: [id number] Admin: 09/09/20 05:02 Dose: Not Given Documented by: [id number] Miscellaneous (Remove Nicoderm Patch) 1 ea N/A DAILY@[id number] ARI Stop: 10/09/20 08:58 Last Admin: 09/09/20 09:15 Dose: 1 ea Documented by: [id number] Nicotine (Nicotine 14 Mg/24 Hr Patch) 14 mg TD QAM ARI Stop: 10/09/20 08:59 Last Admin: 09/09/20 09:15 Dose: 14 mg Documented by: [id number] Discontinued Medications Sodium Chloride (Nss 1000ml) 1,000 mls @ 999 mls/hr IV .Q1H1M ONE Stop: 09/08/20 20:28 Last Infusion: 09/08/20 21:35 Dose: 0 mls/hr Documented by: [id number] Admin: 09/08/20 19:51 Dose: 999 mls/hr Documented by: [id number] Meclizine HCl (Meclizine Hcl 25 Mg Tab) 25 mg PO NOW STA Stop: 09/08/20 19:29 Last Admin: 09/08/20 19:51 Dose: 25 mg Documented by: [id number] Ondansetron HCl (Ondansetron Inj 2 Mg/Ml 2 Ml Vial) 4 mg IV NOW STA Stop: 09/08/20 19:29 Last Admin: 09/08/20 19:51 Dose: 4 mg Documented by: [id number] Description This is a 21 electrode EEG with a single channel dedicated to limited EKG. The electrodes were placed in accordance with the International 10-20 system. History: syncope Rx: lexapro Start/Stop: 5:20am/5:40am Attending reading: Sobeida Hong EEG Description: EEG background: Background was symmetric, low voltage with intermixed 8-10 Hz alpha rhythm and 13-15 Hz beta rhythm. A poorly formed 8-9 Hz posterior dominant rhythm was observed. The EEG is continuous. There is variability and reactivity present. Activation and reactivity: Photic stimulation performed without any abnormalities noted. No photic driving observed. Hyperventilation was not performed. Sleep: No sleep architecture noted. Epileptiform discharges: No epileptiform discharges were observed. Rhythmic and periodic patterns: None Seizures: None Impression: This was a normal EEG aside from excess beta that could be a medication effect. No seizures or epileptiform discharges were seen. Clinical correlation required. [facility] EEG Procedure Codes Indication for Procedure (1) Syncopal episodes: Neurology Neurology: 51308 EEG include record awake & drowsy
--- NOTE | 2020-09-09 11:53 | Nuclear Medicine Report ---
NM pulmonary perfusion CLINICAL HISTORY: Syncopal episodes, hypertension, possible pulmonary embolism. COMPARISON STUDY: Chest x-ray performed November 2013 FINDINGS: The patient was injected with 5.4 mCi of technetium 99m MAA. Ventilatory studies are not be ing performed during a pandemic until masking requirements are lifted. There are no moderate or large perfusion defects. There is a tiny perfusion defect visualized within the left lower lobe on the LPO image. Despite the lack of ventilatory study, this examination would b e characterized as low probability for pulmonary embolism. IMPRESSION: Low probability of pulmonary embolism. ACT 112: Negative or not required by law. Electronically signed by: Rich Velasquez M.D. 09/09/2020 11:51 AM
--- NOTE | 2020-09-09 15:24 | Hospitalist Progress Note ---
Date of Service September 09, 2020 Assessment & Plan (1) Pre-syncope: differential includes vagal vs orthostatic hypotension vs arrhythmia which is less likely and PE checking orthostatics hydrating keep on telemetry (2) Acute kidney injury superimposed on CKD: likely related to dehydration which is exacerbating orthostasis continue NS at 80ml/hr repeat BMP in am Baseline Cr 1.3 09-09 Cr 2.1 (3) Elevated troponin: could be supply demand mismatch in setting of SARA and CKD checking VQ scan to rule out PE 09-09 VQ low probability PE echo with grade 1 diastolic dysfunction, moderate concentric LVH (4) Diabetes mellitus type 2, uncontrolled: A1c 8.7 sliding scale (5) Hypertension: continue norvasc 10, losartan 50bid BP well controlled (6) Diabetic peripheral neuropathy: (7) Anxiety: (8) Diabetic nephropathy: (9) Polycystic kidney disease: (10) Dyslipidemia: crestor Admission and Anticipated Discharge Date Admission Date: September 08, 2020 Subjective Patient reports that she was standing up when she became dizzy and lightheaded She did not black out or lose consciousness She felt better after sitting in a chair Denies palpitations, chest pain, sob, edema No prior episodes Denies recent diarrhea or fluid losses or dehydration Review of Systems Constitutional: no fever, no chills, no fatigue, no weakness, no anorexia, no weight loss and no weight gain Ear, Nose, Mouth, Throat: no nasal congestion, no sore throat and no dysphagia Respiratory: no cough and no dyspnea Cardiovascular: no chest pain, no dyspnea on exertion, no orthopnea and no palpitations Gastrointestinal: no abdominal pain, no nausea, no vomiting, no hematemesis, no dysphagia, no constipation, no diarrhea/loose stools, no blood in stools and no melena Genitourinary: no dysuria, no urinary frequency, no hematuria and no flank pain Musculoskeletal: no back pain, no joint pain, no myalgia and no muscle weakness Integumentary: no rash, no lesions, no skin ulcer, no erythema, no dry skin and no pruritus Neurologic: no falls, no localized weakness, no generalized weakness, no numbness, no paresthesia, no tremor(s) and no headache(s) Psychiatric: no depression, no suicidal ideation, no homicidal ideation and no anxiety Endocrine: no cold intolerance and no heat intolerance Hematologic / Lymphatic: no easy bleeding and no easy bruising Physical Exam Constitutional: well developed and well nourished; no acute distress Eyes: PERRL, conjunctivae normal, anicteric sclerae ENMT: Mouth: oral mucous membranes not dry Respiratory: normal respiratory effort; no respiratory distress and no labored breathing Auscultation: lungs clear to auscultation bilaterally; no crackles, no rales, no rhonchi and no wheezes Cardiovascular: Rate/Rhythm: regular rate and regular rhythm Heart Sounds: no murmur and no cardiac rub Vessels: normal peripheral pulses and radial pulses present; no JVD Extremities: no edema Gastrointestinal (Abdomen): Inspection/Auscultation: abdomen normal to inspection and normal bowel sounds; abdomen not distended Percussion/Palpation: abdomen soft; abdomen nontender, no guarding, abdomen not rigid and no hepatosplenomegaly Musculoskeletal: Head/Neck/Chest: normocephalic and head atraumatic Spine: no cervical spinal tenderness, no cervical muscular tenderness, no thoracic spinal tenderness and no lumbar spinal tenderness Skin: no rashes, warm and dry Neurologic: CN's II-XI intact bilaterally and moves all extremities Motor/Sensory: no tremor and no sensory deficit Psychiatric: Orientation: alert, oriented to person, oriented to place and oriented to time Apperance: appropriately groomed; not disheveled Affect: euthymic affect; no anxious affect and no tearful affect Genitourinary: no CVA tenderness no Carbajal catheter Results & Data Results & Data ([facility]) Vital Signs (Past 12 Hours) Vital Signs Temp Pulse Pulse Resp BP Pulse Ox 09/09/20 14:16 81 129/66 09/09/20 07:59 36.5 C 73 18 174/80 H 100 09/09/20 07:30 74 PG Care Time/CCT Total # of Minutes Spent Total Time Spent with Patient: Total time spent is greater than 50% in coordination of care (as documented) at patient's floor/unit and/or counseling patient: Coding Level of Care Code 42785 Subseq Hosp Care Lvl 2 Diagnoses Pre-syncope R55 Acute kidney injury superimposed on CKD N17.9; N18.9 Elevated troponin R77.8 Diabetes mellitus type 2, uncontrolled E11.65 Hypertension I10 Diabetic peripheral neuropathy E11.42 Anxiety F41.9 Diabetic nephropathy E11.21 Polycystic kidney disease Q61.3 Dyslipidemia E78.5
--- NOTE | 2020-09-09 15:54 | Electrocardiogram Report ---
Test Reason : Blood Pressure : / mmHG Vent. Rate : 095 BPM Atrial Rate : 095 BPM P-R Int : 166 ms QRS Dur : 076 ms QT Int : 374 ms P-R-T Axes : 072 048 078 degrees QTc Int : 469 ms Normal sinus rhythm Low voltage QRS Abnormal ECG When compared with ECG of 19-NOV-2013 19:35, No significant change was found Confirmed by Javier Castro ([id number]) on 09/09/2020 3:54:05 PM Referred By: REFERRED SELF Confirmed By:Alexys Castro
--- NOTE | 2020-09-10 05:25 | Billing Data ---
Date of Service September 10, 2020 Coding Level of Care Code 10297 Initial Inpt Care Lvl 3
[2020-09-10] MEDS: SODIUM CHLORIDE 0.9% 1000ML 1,000 ML IV SCH ×2 (05:44→16:44)
[2020-09-10] MEDS: INSULIN ASPART 100 UNITS/ML 3 ML PEN SC SCH ×4 (08:17→21:11)
[2020-09-10] MEDS: ESCITALOPRAM OXALATE 10 MG TAB PO SCH (08:18)
[2020-09-10] MEDS: NICOTINE 14 MG/24 HR PATCH TD SCH (08:18)
[2020-09-10] MEDS: amLODIPine BESYLATE 5 MG TAB PO SCH (08:18)
[2020-09-10 08:57] LABS: Hematocrit (blood only) 38.5 % (37-47); Mean Corpuscular Hemoglobin 28.1 pg (25-34); Mean Corpuscular Hgb Conc 33.8 g/dL (32-36); Mean Corpuscular Volume 83.2 fL (80-100); Mean Platelet Volume 10.1 fL (7.4-10.4); Platelet Count 403 K/uL (130-400); RDW Coefficient of Variation 13.6 % (11.5-14.5); RDW Standard Deviation 41.3 fL (36.4-46.3); Red Blood Count 4.63 M/uL (4.2-5.4); White Blood Count 9.38 K/uL (4.8-10.8)
[2020-09-10 09:19] LABS: BUN Creatinine Ratio 16.7 (10-20); Calcium 8.7 mg/dl (8.5-10.1); Creatinine Clr Calc Pharmacy 26.4 ml/min; Est GFR (African American) 32.1; Est GFR (Non-African American) 27.7; Magnesium 1.8 mg/dl (1.8-2.4); Potassium 3.8 mmol/L (3.5-5.1)
[2020-09-10 09:20] LABS: Phosphorus 3.6 mg/dl (2.5-4.9)
--- NOTE | 2020-09-10 15:14 | Hospitalist Progress Note ---
Date of Service September 10, 2020 Assessment & Plan (1) Syncopal episodes: No repeat symptoms, continue monitoring on telemetry Blood pressure has been normal no additional testing at this time (2) Elevated troponin: could be supply demand mismatch in setting of SARA and CKD checking VQ scan to rule out PE 09-09 VQ low probability PE echo with grade 1 diastolic dysfunction, moderate concentric LVH Three hundred twenty-seven discussed with Cardiology will plan on outpatient stress test secondary to risk factors (3) Diabetes mellitus type 2, uncontrolled: A1c 8.7 sliding scale (4) Hypertension: continue norvasc 10, losartan 50bid BP well controlled (5) Dyslipidemia: crestor (6) SARA (acute kidney injury): Patirepeat BMP in am Baseline Cr 1.3 09-09 Cr 2.1 ent's creatinine has continued to improve however she is above her chronic levels Will continue IV fluid hydration with plan on repeat BMP in the and a.m. (7) Tobacco use: (8) Anxiety: Admission and Anticipated Discharge Date Admission Date: September 08, 2020 Subjective Overall the patient is doing well no significant difficulties overnight. Continue have normal urination with no dysuria. No new chest pain dyspnea palpitations or syncopal symptoms. Tolerated normal diet No nausea vomiting Review of Systems Review of Systems: All systems reviewed & are unremarkable except as noted in HPI & below Physical Exam Physical Exam: Constitutional: WD/WN, vitals as above Respiratory: Effort normal, CTA B/L CV: RRR, no murmur, no edema Abdomen: normal bowel sounds, soft, nontender, no hepatosplenomegaly Neurologic: Normal gait Results & Data Results & Data ([facility]) Vital Signs (Past 12 Hours) Vital Signs Temp Pulse Pulse Resp BP BP Pulse Ox 09/10/20 14:31 36.4 C L 83 18 155/82 H 98 09/10/20 11:15 37.1 C 85 20 146/67 H 99 09/10/20 08:00 72 09/10/20 07:33 36.8 C 71 18 146/80 H 98 09/10/20 03:45 36.7 C 79 18 171/81 H 98 Laboratory Results Laboratory Results - last 24 hr 09/09/20 09/09/20 09/09/20 16:32 19:54 20:19 WBC RBC Hgb Hct MCV MCH MCHC RDW Std Deviation RDW Coeff of Josias Plt Count MPV Sodium Potassium Chloride Carbon Dioxide Anion Gap BUN Creatinine Est Cr Clr Drug Dosing Est GFR ( Amer) Est GFR (Non-Af Amer) BUN/Creatinine Ratio Glucose POC Glucose 115 H 125 H Calcium Phosphorus Magnesium Troponin I 0.101 H* 09/10/20 09/10/20 09/10/20 07:26 08:00 08:00 WBC 9.38 RBC 4.63 Hgb 13.0 Hct 38.5 MCV 83.2 MCH 28.1 MCHC 33.8 RDW Std Deviation 41.3 RDW Coeff of Josias 13.6 Plt Count 403 H MPV 10.1 Sodium 143 Potassium 3.8 Chloride 116 H Carbon Dioxide 21 Anion Gap 6.0 BUN 33 H Creatinine 1.97 H Est Cr Clr Drug Dosing 26.4 Est GFR ( Amer) 32.1 Est GFR (Non-Af Amer) 27.7 BUN/Creatinine Ratio 16.7 Glucose 102 H POC Glucose 107 H Calcium 8.7 Phosphorus 3.6 Magnesium 1.8 Troponin I 09/10/20 11:20 WBC RBC Hgb Hct MCV MCH MCHC RDW Std Deviation RDW Coeff of Josias Plt Count MPV Sodium Potassium Chloride Carbon Dioxide Anion Gap BUN Creatinine Est Cr Clr Drug Dosing Est GFR ( Amer) Est GFR (Non-Af Amer) BUN/Creatinine Ratio Glucose POC Glucose 83 Calcium Phosphorus Magnesium Troponin I PG Care Time/CCT Total # of Minutes Spent Total Time Spent with Patient: Total time spent is greater than 50% in coordination of care (as documented) at patient's floor/unit and/or counseling patient: Coding Level of Care Code 82147 Subseq Hosp Care Lvl 2 Diagnoses Syncopal episodes R55 Syncope type: unspecified Elevated troponin R77.8 Diabetes mellitus type 2, uncontrolled E11.65 Hypertension I10 Dyslipidemia E78.5 SARA (acute kidney injury) N17.9 Tobacco use Z72.0 Anxiety F41.9 (1) Syncopal episodes Syncope type: unspecified Qualified Code(s): R55 - Syncope and collapse
[2020-09-11] MEDS: SODIUM CHLORIDE 0.9% 1000ML 1,000 ML IV SCH ×2 (04:51→14:03)
[2020-09-11] MEDS: NICOTINE 14 MG/24 HR PATCH TD SCH (08:18)
[2020-09-11] MEDS: ESCITALOPRAM OXALATE 10 MG TAB PO SCH (08:20)
[2020-09-11] MEDS: amLODIPine BESYLATE 5 MG TAB PO SCH (08:22)
[2020-09-11] MEDS: INSULIN ASPART 100 UNITS/ML 3 ML PEN SC SCH ×2 (08:36→12:08)
[2020-09-11] MEDS ORDERED: ROSUVASTATIN CALCIUM 5 MG TAB PO SCH (09:00)
--- NOTE | 2020-09-11 17:27 | Discharge Summary ---
Date of Service September 11, 2020 Admission HPI Per Admitting Provider Lauren Caal is a 55-year-old female with past medical history significant for hypertension, hyperlipidemia, type 2 diabetes (uncontrolled), CKD stage III, diabetic neuropathy, diabetic retinopathy; who presented to the ED following a syncopal event at work. Earlier today patient was seen by PCP for leg cramps, following that time she returned to work and sometime this evening while at work patient had syncopal event in which she was caught by her boss and sat in chair at until EMS arrival. Patient has no recollection of this event, only knows the events leading immediately up to and then upon waking in the ED and what she has been told by others. What she can remember is that she was standing talking with her boss, felt some cramping in her legs, and then she awoke in the emergency department. From what she understands from communicating with others over the last several hours, patient started to be wobbly on her feet, and then started to collapse before her boss caught her and sat her in chair and called 911. No witnessed seizure-like activity at that time, nor rapid arousal following remaining seated, no episodes of incontinence. Patient states she has never had anything like this happen prior, and other than the leg cramps that she has been dealing with over the last several weeks she has otherwise felt well. Principal Diagnosis Syncope Discharge Exam General she is awake and alert pleasant no distress. HEENT normocephalic atraumatic mucous membranes moist. Breathing unlabored no accessory muscle use good effort. Skin shows no rashes no pallor or icterus. Neuro shows no focal deficits. Discharge Data Allergies Allergy/AdvReac Type Severity Reaction Status Date / Time alcohol Allergy Severe SHORTNESS Verified 09/08/20 17:36 OF BREATH aspirin Allergy Intermediate HIVES Verified 09/08/20 17:36 ibuprofen Allergy Mild HIVES Verified 09/08/20 17:36 metformin Allergy Mild BODY PAIN Verified 09/08/20 17:36 Penicillins Allergy Mild HIVES Verified 09/08/20 17:36 Consultations 09/08/20 22:10 ED Decision to Admit Stat Ordered Studies 09/08/20 19:29 CT head/brain wo con Stat 09/08/20 19:50 CT abd pelvis wo con Stat Hospital Course (1) Syncopal episodes: Really seems to have been more of a prolonged presyncopalshe relates no true loss of consciousness. This episode, combined with her recent leg cramps, combined with her elevated creatinine above baseline all imply dehydration as the culprit. -She did not show any worrisome rhythms, did not have a PE, and clinically felt much better shortly after fluids were started. -Stable for home, encourage p.o. fluid intake (outlined about 60 ounces a day when she is not working and 80 ounces a day when she is) -PCP and nephrology follow-up (2) Elevated troponin: could be supply demand mismatch in setting of SARA and CKD 3-26 VQ low probability PE echo with grade 1 diastolic dysfunction, moderate concentric LVH Hospitalist yesterday discussed with Cardiology will plan on outpatient stress test secondary to risk factors (3) Diabetes mellitus type 2, uncontrolled: A1c 8.7 Outpatient follow-up (4) Hypertension: Home on home meds (5) Dyslipidemia: crestor (6) SARA (acute kidney injury): On baseline CKD stage III. SARA almost certainly due to dehydration. Is improving, safe for home as long as she has adequate p.o. intake, we discussed staying in the hospital for ongoing IV fluids versus homeshe much prefers home. Basic metabolic panel in 2 to 3 days, outpatient follow-up (7) Tobacco use: (8) Anxiety: Total Time Total Time Spent Total Time Spent (In Minutes): Greater than 30 Discharge Plan Discharge Items Patient Disposition: Home - Self-Care Reason For Visit: SYNCOPAL EVENT Discharge Diagnosis: dehydration Activity: Resume your previous activity Non-emergency contact: Primary Care Provider and Stem Maker Call non-emergency contact if: you have any medication questions and your symptoms worsen Follow-up/Referrals: Macie Brand MD [Primary Care Provider] - Diet: Carb Consistent or DM2 Addtl Attending Provider Instructions: Dehydration -As we discussed, your recent symptoms of leg cramps and your near fainting spell, combined with the elevation of your creatinine above your baseline would all share a common thread of dehydration. Certainly there are other explanations that could fit for each individual component of your symptoms, but being dry would absolutely be a plausible, common, common thread that would tie them together -I would recommend that you drink about 60 ounces of fluid a day on a regular day, probably try to target more like 80 ounces when you are working. As we discussed you do not have to avoid coffee, but typically I tell people to not count the ounces in their coffee towards the fluid total for the day (because for some people caffeine can act as a bit of a diuretic) -Pay attention to how you are feeling, certainly if the leg cramps return I would have Dr. Vidal take a look at yousometimes these types of leg cramps can be improved with simple supplementation of calcium and magnesium, sometimes they are more of a variant of restless leg syndrome, sometimes they can be a hint of underlying sleep apnea, but again for you most likely it was all dehydration -Likewise, with the fainting/near fainting spell, dehydration would be far and away the most likely culprit. The team taking care of you before I picked up your care today did recommend getting a treadmill type stress test done in the near future for completeness, this is reasonable, but I would certainly not think it is urgent. -Your creatinine has come down nicelytoday it is 1.97, down from a high point of 2.35, and it looks like you probably live in the range of about 1.4. As you continue to drink well, I would expect your creatinine levels to continue to improve. In that respect I would recommend you have lab work (basic metabolic panel) checked in 2 or 3 days Smoking -It would be enormously important to your health if you would be able to quit smoking -For now utilizing nicotine patches can be helpfulwe will send a prescription for the 14 mg patches, given that that tends to work pretty well for people who smoke about half a pack a day. -As we discussed, most people who use nicotine replacement to quit smoking only do so successfully for a few months, unless they wean the nicotine away altogether. The reason for this is that when you smoke, you create more nicotine receptors in your brain cells, which then makes you crave nicotine more. When people use nicotine replacement, generally that keeps the nicotine receptors "alive" and eventually most people find their way back to smoking, because it creates the biggest surge of nicotine all at once, creating a big release of dopamine in your brainwhich creates the relaxation people feel when the smoke. -Using nicotine replacement to get off of the cigarettes is a reasonable starting point, but over the next few weeks I would definitely want her to drop from 14 mg patches to 7 mg patches, and then stop altogether. Usually what we see is that people down regulate nicotine receptors fairly quickly, but it often takes 3 to 4 months of being totally nicotine free before the physical part of the addiction is "over" -Once you have quit successfully, also think about other strategies for stress management, when I see people relapse after having quit for quite a while, it is usually some sort of stressful life event that leads to the smoking again -Definitely talk to her employer about the ability to take a break without having to smoke in order to do so. It is a very common theme that we see, but it is very bizarre that often employees are only able to take a break to smoke, almost making it so that the employer is encouraging people to smoke, just so that they have time to collect themselves! Pending Studies at Discharge: No Stand-Alone Forms: My [facility], Work/School Release (Inpt), Smoking Cessation Medications and DC Order Prescriptions: New nicotine 14 mg/24 hr patch 24 hour 1 patch transdermal DAILY Qty: 14 RF: 0 Continued (DME) lancets [Accu-Chek Fastclix Lancet Drum] misc See Rx Instructions .ROUTE .MEDSUPPLY Qty: 102 RF: 3 (DME) Accu-Chek Guide test strips strip See Rx Instructions .ROUTE .MEDSUPPLY Qty: 100 RF: 3 (DME) blood-glucose meter [Accu-Chek Guide Glucose Meter] misc See Rx Instructions .ROUTE .MEDSUPPLY Qty: 1 RF: 0 (DME) Dexcom G6 Taco Maker Misc See Rx Instructions .ROUTE .MEDSUPPLY Qty: 1 RF: 0 (DME) Dexcom G6 Transmitter Device See Rx Instructions .ROUTE .MEDSUPPLY Qty: 1 RF: 3 (DME) pen needle, diabetic [BD Ultra-Fine Valentina Pen Needle] 32 gauge x 5/32" needle See Rx Instructions .ROUTE .MEDSUPPLY Qty: 400 RF: 1 amlodipine 10 mg tablet 10 mg PO QAM Qty: 90 RF: 1 Basaglar KwikPen U-100 Insulin 100 unit/mL (3 mL) insulin pen 14 unit SUBCUT HS Qty: 15 RF: 5 losartan 50 mg tablet 50 mg PO BID Qty: 180 RF: 1 (DME) Dexcom G6 Sensor Device See Rx Instructions .ROUTE .MEDSUPPLY Qty: 3 RF: 3 ergocalciferol (vitamin D2) 1,250 mcg (50,000 unit) capsule 1,250 mcg PO WK RF: 0 rosuvastatin [Crestor] 5 mg tablet 5 mg PO 2XWK RF: 0 escitalopram oxalate [Lexapro] 5 mg tablet 5 mg PO QAM RF: 0 Discharge Orders: Discharge Order (Routine); Ordered 09/11/20 Ordered By: Gary Strong Admission Data Admit Date/Time: 09/08/20 23:50 Attending Provider: Gary Strong Admit Provider: Chaka Ponce Primary Care Provider: Macie Brand V. Other Providers: Bubba Morales ; Justina Mosqueda ; Jhon Montano Other Interventions: Discharge Summary Assessment (RN) Last Done: 09/11/20 13:19 Coding Level of Care Code D/C Day Management >30 mins Diagnoses Syncopal episodes R55 Syncope type: unspecified Elevated troponin R77.8 Diabetes mellitus type 2, uncontrolled E11.65 Hypertension I10 Dyslipidemia E78.5 SARA (acute kidney injury) N17.9 Tobacco use Z72.0 Anxiety F41.9
== END 2020-09-11 14:27 | disposition home or self-care (01) | DRG 641 ==
LOC: ED 19:19 → 2N 23:50 → SUATTDRO 23:50 → 2N 09-09 00:24

== ENCOUNTER 2020-10-01 14:09 | Inpatient (IN) ==
--- NOTE | 2020-10-01 14:45 | Emergency Department Note ---
History of Present Illness General Chief complaint: Stroke/CVA Symptoms Stated complaint: SLURRED SPEECH/UNABLE TO WALK Time Seen by Provider: 10/01/20 14:21 Source: patient History of Present Illness Provider complaint: Stroke symptoms Onset (ago): day(s) Location: upper extremity, lower extremity and right Pain Consistency: + constant Quality: + other (Difficulty with her speech and gait and weakness on the right side of her body) Relieved By: + none Associated symptoms: + weakness; no chest pain, no cough, no fever/chills, no headaches (She states she has a pressure in her head but no pain), no nausea/vomiting and no shortness of breath This is a 55-year-old female who is presenting with strokelike symptoms starting at 1 PM yesterday. Patient works in [employer] and noticed that she suddenly developed right-sided weakness in her arm and leg, worse in the leg. She had difficulty walking and slurring of her speech. She had incoordination of the right side of her body. She denies any vertigo or visual symptoms. The patient has had various neurologic symptoms over the past week and so she ignored her that she had a unremarkable work-up during her hospitalizations in various doctors visits. Her states that she has been here several times for vertigo but she has no vertigo currently. She called her doctor today who advised her to come in for evaluation rather than wait for her neurologic appointment on . She continues to have weakness and incoordination of the right arm and leg. She feels that her speech is slurred. She denies any fever, cough or cold symptoms, chest pain, shortness of breath, abdominal pain, vomiting, diarrhea or urinary symptoms. She states she does not have a headache but she feels some pressure in her head. Home Medications Medication Instructions Recorded Confirmed Type Accu-Chek Fastclix Lancet Drum #102 ea NS 06/18/19 10/01/20 Rx Accu-Chek Guide Glucose Meter #1 ea NS 06/18/19 10/01/20 Rx Accu-Chek Guide test strips #100 ea NS 06/18/19 10/01/20 Rx Dexcom G6 Auditor Appraiser #1 ea NS 07/14/19 10/01/20 Rx losartan 50 mg tablet 50 mg PO BID #180 tab 12/31/19 10/01/20 Rx Dexcom G6 Transmitter #1 ea NS 02/03/20 10/01/20 Rx BD Ultra-Fine Valentina Pen Needle 32 #400 ea NS 04/07/20 10/01/20 Rx gauge x 5/32" Dexcom G6 Sensor #3 box NS 04/28/20 10/01/20 Rx amlodipine 10 mg tablet 10 mg PO QAM #90 tab 07/11/20 10/01/20 Rx Basaglar KwikPen U-100 Insulin 100 14 unit SUBCUT HS #15 ml NS 09/01/20 10/01/20 Rx unit/mL (3 mL) subcutaneous ergocalciferol (vitamin D2) 1,250 mcg PO WK 09/08/20 10/01/20 History escitalopram oxalate [Lexapro] 5 mg PO QAM 09/08/20 10/01/20 History rosuvastatin [Crestor] 5 mg PO 2XWK 09/08/20 10/01/20 History meclizine 25 mg tablet 25 mg PO TID PRN #30 tab 09/27/20 10/01/20 Rx Allergies Allergy/AdvReac Type Severity Reaction Status Date / Time alcohol Allergy Severe SHORTNESS Verified 10/01/20 15:36 OF BREATH aspirin Allergy Intermediate HIVES Verified 10/01/20 15:36 ibuprofen Allergy Mild HIVES Verified 10/01/20 15:36 metformin Allergy Mild BODY PAIN Verified 10/01/20 15:36 Penicillins Allergy Mild HIVES Verified 10/01/20 15:36 Past Med/Surg History Medical History Abnormal TSH Acute kidney injury superimposed on CKD SARA (acute kidney injury) Asthma NO INHALER USED for the past 40 years. No h/o hospitalization or intubation Chronic kidney disease ? STAGE Dental abscess Diabetes mellitus type 2, uncontrolled Diabetic nephropathy Diabetic retinopathy, nonproliferative Disc degeneration, lumbar Dyslipidemia Elevated troponin Fibromyalgia Hemorrhoids Hypertension Impaired memory Syncopal episodes Tobacco use Surgical History H/O hysterectomy for benign disease History of cataract surgery R; was given 4mg versed and 100mcg fentanyl along with ketamine and benadryl due to itching from fentanyl History of section History of colonoscopy History of dilatation and curettage History of hysterectomy History of tooth extraction Family History Aunt Breast cancer Denies family history of Ovarian cancer Prostate cancer Myocardial infarction Colorectal cancer Cystic kidney disease Social History Smoking Status: Current every day smoker Tobacco Type: Cigarettes Cigarettes Per Day: 3; Second Hand Exposure: Yes ( is current smoker); Tobacco Cessation Education Requested by Patient: No Hx Alcohol Use: No Hx Substance Use: No Preferred Language: Yemeni Communication Ability: Effective Adjustment Examiner Required: No Beliefs That Will Affect Care: Christian Christian Beliefs: CONFUCIANISM marital status: Current Living Situation: Spouse current occupational status: employed Other Information That Helps Us Care for You: No Feels Safe at Home: Yes Safety Concerns: Feels Safe At This Time Childhood Exposure to Second-Hand Smoke: Yes Dental Care, Regularly: Yes Physical Activity Frequency: Does not Exercise Seatbelt Use: always Sunscreen Use: Yes Assistive Devices: Denture - Upper, Denture - Lower and Glasses Review of Systems See HPI for pertinent positives & negatives. and A total of 10 systems reviewed and were otherwise negative Physical Exam Vital Signs Vital Signs - 24 hr 10/01/20 14:13 10/01/20 14:29 10/01/20 16:15 Temperature 36.5 C Temperature Source Temporal Artery Scan Pulse Rate 87 Pulse Rate [Left Apical] 81 Pulse Rhythm [Left Apical] Regular Pulse Strength [Left Apical] Normal Respiratory Rate 18 21 Respiratory Effort / Characteristics Non-Labored Spontaneous Respiratory Depth Normal Respiratory Pattern Regular Blood Pressure 180/91 H Blood Pressure [Left Arm] 157/90 H Blood Pressure Mean 120 Blood Pressure Mean [Left Arm] 112 Blood Pressure Position [Left Arm] Lying Pulse Oximetry 100 99 100 Oxygen Delivery Method Room Air Room Air Room Air Sepsis Recent Fever Within 48 Hours No Sepsis New/Unexplained Change in Mental Status N/A Sepsis Action Taken by Nursing No Action Required 10/01/20 18:12 Temperature Temperature Source Pulse Rate Pulse Rate [Left Apical] 83 Pulse Rhythm [Left Apical] Regular Pulse Strength [Left Apical] Normal Respiratory Rate 17 Respiratory Effort / Characteristics Non-Labored Spontaneous Respiratory Depth Normal Respiratory Pattern Regular Blood Pressure Blood Pressure [Left Arm] 153/86 H Blood Pressure Mean Blood Pressure Mean [Left Arm] 108 Blood Pressure Position [Left Arm] Lying Pulse Oximetry 99 Oxygen Delivery Method Room Air Sepsis Recent Fever Within 48 Hours Sepsis New/Unexplained Change in Mental Status Sepsis Action Taken by Nursing Constitutional: Vital signs reviewed. Eyes: Pupils are equal round reactive to light. Conjunctiva are noninjected. ENT: Pharynx is clear without erythema or exudate. Mucous membranes are moist. Neck supple without meningeal signs. Respiratory: Clear to auscultation bilaterally. Breath sounds are equal bilaterally. Cardiovascular: Regular rate and rhythm. No rubs or gallops. GI: Soft, nondistended and nontender. Bowel sounds are present. Musculoskeletal: No peripheral edema. No lower extremity tenderness. Integumentary: No cyanosis. or jaundice. Neurologic: The patient is awake and alert. Cranial nerves II-XII are intact. Motor is 5 out of 5 in the left upper and lower extremities. Motor strength is 4/5 in the right upper and lower extremities. Sensation is intact to light touch all extremities. Right-sided pronator drift. Limb ataxia right arm and leg Psychiatric: Very anxious and tearful Course Administered Medications Discontinued Medications Clopidogrel Bisulfate (Clopidogrel Bisulfate 300 Mg Tab) 300 mg PO NOW STA Stop: 10/01/20 16:06 Last Admin: 10/01/20 16:16 Dose: 300 mg Documented by: [id number] Critical Care Time Critical Care Time: Yes Total Critical Care Time: 45 I have personally spent approximately 45 minutes of critical care time in the direct management of this patient. This includes bedside care, interpretation of diagnostic studies, and testing, discussion with consultants, patient, and family members, and other required patient management activities. These minutes are in excess of all separately billable procedures. Medical Decision Making Differential Diagnosis CVA, intracranial mass, intracranial hemorrhage, complex migraine, vertebrobasilar insufficiency Medical Records Attestation: I reviewed the patient's medical records. I did perform a limited focused review of portions of the patient's old chart on the electronic medical record. The patient was seen here on the of this month for dizziness, near syncope and difficulty speaking. She had blood work here which showed an elevated creatinine and troponin. The elevated troponin was thought to be chronic and secondary to her kidney disease. Her dizziness was treated with meclizine as she has been on meclizine for vertigo. She was admitted on September 08 for syncope and had a negative CT of her head. Her troponin was elevated at that time as well. Home Medications Current Medication List: was personally reviewed by me Laboratory Data Attestation: I reviewed the patient's lab results. Result diagrams: 10/01/20 14:25 10/01/20 14:25 Lab Results 10/01/20 10/01/20 10/01/20 Range/Units 14:25 14:25 14:25 WBC 9.84 (4.8-10.8) K/uL RBC 4.65 (4.2-5.4) M/uL Hgb 13.1 (12.0-16.0) g/dL Hct 37.8 (37-47) % MCV 81.3 (80-100) fL MCH 28.2 (25-34) pg MCHC 34.7 (32-36) g/dL RDW Std Deviation 40.7 (36.4-46.3) fL RDW Coeff of Josias 13.6 (11.5-14.5) % Plt Count 398 (130-400) K/uL MPV 10.1 (7.4-10.4) fL Immature Gran % (Auto) 0.3 % Neut % (Auto) 68.9 % Lymph % (Auto) 21.4 % Keith % (Auto) 6.3 % Eos % (Auto) 2.8 % Baso % (Auto) 0.3 % Neut # (Auto) 6.77 H (1.4-6.5) K/uL Lymph # (Auto) 2.11 (1.2-3.4) K/uL Keith # (Auto) 0.62 H (0.11-0.59) K/uL Eos # (Auto) 0.28 (0-0.5) K/uL Baso # (Auto) 0.03 (0-0.2) K/uL Immature Gran # (Auto) 0.03 H (0.00-0.02) K/uL PT 9.5 (9.0-12.0) Seconds INR 0.9 (0.9-1.1) APTT 27.8 (21.0-31.0) Seconds PTT Ratio 1.1 Sodium 141 (136-145) mmol/L Potassium 4.3 (3.5-5.1) mmol/L Chloride 114 H (98-107) mmol/L Carbon Dioxide 19 L (21-32) mmol/L Anion Gap 8.0 (3-11) BUN 31 H (7-18) mg/dl Creatinine 2.17 H (0.6-1.2) mg/dl Est Cr Clr Drug Dosing 23.9 ml/min Est GFR ( Amer) 28.6 Est GFR (Non-Af Amer) 24.7 BUN/Creatinine Ratio 14.3 (10-20) Glucose 200 H (70-99) mg/dl Calcium 8.6 (8.5-10.1) mg/dl Magnesium 2.0 (1.8-2.4) mg/dl Total Bilirubin 0.2 (0.2-1) mg/dl AST 15 (15-37) U/L ALT 16 (12-78) U/L Alkaline Phosphatase 137 H (45-117) U/L Troponin I 0.080 H* (0-0.045) ng/ml Total Protein 7.3 (6.4-8.2) gm/dl Albumin 2.8 L (3.4-5.0) gm/dl Globulin 4.5 H (2.5-4.0) gm/dl Albumin/Globulin Ratio 0.6 L (0.9-2) COVID-19 Eval Order SARS-CoV-2 (PCR) (Negative) Influenza Type A (PCR) (Neg) Influenza Type B (PCR) (Neg) RSV (RT-PCR) (Neg) 10/01/20 10/01/20 Range/Units 16:22 16:22 WBC (4.8-10.8) K/uL RBC (4.2-5.4) M/uL Hgb (12.0-16.0) g/dL Hct (37-47) % MCV (80-100) fL MCH (25-34) pg MCHC (32-36) g/dL RDW Std Deviation (36.4-46.3) fL RDW Coeff of Josias (11.5-14.5) % Plt Count (130-400) K/uL MPV (7.4-10.4) fL Immature Gran % (Auto) % Neut % (Auto) % Lymph % (Auto) % Keith % (Auto) % Eos % (Auto) % Baso % (Auto) % Neut # (Auto) (1.4-6.5) K/uL Lymph # (Auto) (1.2-3.4) K/uL Keith # (Auto) (0.11-0.59) K/uL Eos # (Auto) (0-0.5) K/uL Baso # (Auto) (0-0.2) K/uL Immature Gran # (Auto) (0.00-0.02) K/uL PT (9.0-12.0) Seconds INR (0.9-1.1) APTT (21.0-31.0) Seconds PTT Ratio Sodium (136-145) mmol/L Potassium (3.5-5.1) mmol/L Chloride (98-107) mmol/L Carbon Dioxide (21-32) mmol/L Anion Gap (3-11) BUN (7-18) mg/dl Creatinine (0.6-1.2) mg/dl Est Cr Clr Drug Dosing ml/min Est GFR ( Amer) Est GFR (Non-Af Amer) BUN/Creatinine Ratio (10-20) Glucose (70-99) mg/dl Calcium (8.5-10.1) mg/dl Magnesium (1.8-2.4) mg/dl Total Bilirubin (0.2-1) mg/dl AST (15-37) U/L ALT (12-78) U/L Alkaline Phosphatase (45-117) U/L Troponin I (0-0.045) ng/ml Total Protein (6.4-8.2) gm/dl Albumin (3.4-5.0) gm/dl Globulin (2.5-4.0) gm/dl Albumin/Globulin Ratio (0.9-2) COVID-19 Eval Order CovFluRsv at [facility] SARS-CoV-2 (PCR) NEGATIVE (Negative) Influenza Type A (PCR) Negative (Neg) Influenza Type B (PCR) Negative (Neg) RSV (RT-PCR) Negative (Neg) Imaging Data Radiologist's Impression: Head CT 10/01/20 14:36 CT head/brain wo con CLINICAL HISTORY: 55 years-old Female with right sided weakness eval for stroke. Acute right-sided weakness TECHNIQUE: Multiple axial CT images of the head were obtained without contrast. A dose lowering technique was utilized adhering to the principles of ALARA. CT DOSE: 614.27 mGy.cm COMPARISON: Head CT 09/08/2020. FINDINGS: No acute intracranial hemorrhage, midline shift, intra-axial mass, hydrocephalus, territorial ischemia or abnormal extra-axial collection. Cerebral vascular calcifications. Senescent calcifications of the lentiform nuclei. 8 mm calcification adjacent to left frontal lobe on image 25 is suggestive of an extr a-axial meningioma. The calvarium is intact. Prior bilateral lens repair. The paranasal sinuses, mastoid air cells, and middle ear cavities are clear. IMPRESSION: 1. No acute intracranial abnormality. 2. Calcified subcentimeter meningioma adjacent to the left frontal lobe redemonstrated. ACT 112: Negative or not required by law. The above report was generated using voice recognition software. It may contain grammatical, syntax or spelling errors. Electronically signed by: Dewey Scott M.D. 10/01/2020 4:02 PM Brain MRI 10/01/20 16:05 MR brain wo con HISTORY: 55 years-old Female right-sided weakness acute hypertension with strokelike symptoms COMPARISON: Head CT of same day and also 09/08/2020 TECHNIQUE: Multiplanar multisequence MRI a the brain was obtained without the use of IV contrast. FINDINGS: There are several foci of restricted diffusion within the central, ventral and left paracentral urban with decreased signal on ADC map and increased T2/STIR signal, conglomerate measuring up to 1.9 cm in greatest dimension. Artifact from metallic density of the face most notably limits the diffusion-weighted images. No acute intracranial hemorrhage, midline shift, abnormal extra-axial collec tion, hydrocephalus or intra-axial mass. 8 mm calcified meningioma adjacent to left frontal lobe redemonstrated. Senescent calcifications of the lentiform nuclei. Mild patchy T2/FLAIR hyperintensities are noted throughout the white matter with a cluster of foci present within the left parietal lobe extending to the cortex on images 20 and 21 of the coronal series and possibly bilingual sales representative of a chronic insult. Cerebral venous sinuses are patent. Major vascular flow voids are also patent. The mastoid air cells are clear. Mild polypoid mucosal thickening of the right m axillary sinus. Prior bilateral lens repair. Skull and soft tissues are unremarkable. IMPRESSION: 1. Acute pontine infarcts, conglomerate measuring up to 1.9 cm. 2. No acute intracranial hemorrhage or midline shift. 3. Suggested mild chronic microvascular ischemic disease. 4. Indeterminate clustered foci of T2/FLAIR prolongation within the left parietal lobe cortex and subcortical distribution, possibly bilingual sales representative of remote insult. 5. Subcentimeter calcified meningioma adjacent to the left frontal lobe. ACT 112: Negative or not required by law. The above report was generated using voice recognition software. It may contain grammatical, syntax or spelling errors. Electronically signed by: Dewey Scott M.D. 10/01/2020 6:46 PM Cervical Spine MRI 10/01/20 16:05 MR cervical spine wo con HISTORY: 55 years-old Female right weakness acute neck pain with right-sided weakness COMPARISON: Brain MRI of same day TECHNIQUE: Multiplanar multisequence MRI of the cervical spine was obtained without the use of contrast. FINDINGS: T2 hyperintense foci of the pontine brainstem, better characterized on brain MRI of same day. 7 mm T3 vertebral body hemangioma. Straightening of the normal cervical lordosis. No acute fracture, subluxation, bone marrow or soft tissue edema. Signal within the cervical and imaged thoracic spinal cord appears normal. Unremarkable soft tissues of the neck. C2-C3: Mild facet arthrosis. No central canal or neural foraminal narrowing. C3-C4: Mild uncovertebral spurring and facet arthrosis. No central canal or neural foraminal narrowing. C4-C5: Mild uncovertebral spurring and facet arthrosis. No central canal or neural foraminal narrowing. C5-C6: Mild intervertebral disc space narrowing with uncovertebral spurring and small posterior disc osteophyte complex with mild facet arthrosis. No central canal or neural foraminal narrowing. C6-C7: Moderate intervertebral disc space narrowing with spondylitic spurring and circumferential annular disc bulge with disc osteophyte complex. Mild facet arthrosis. Flattening of the ventral thecal sac without significant central canal narrowing. Moderate right with [id number] left neuroforaminal narrowing. C7-T1: Mild facet arthrosis. No central canal or neural foraminal narrowing. IMPRESSION: 1. T2 hyperintense foci of the pontine brainstem correlate with the acute infa rcts which are better characterized on the brain MRI of same day. 2. Discogenic degeneration and facet arthrosis as above, most pronounced at C6- C7 resulting in moderate right with [id number] left neuroforaminal narrowing. 3. No high-grade central canal stenosis. ACT 112: Negative or not required by law. The above report was generated using voice recognition software. It may contain grammatical, syntax or spelling errors. Electronically signed by: Dewey Scott M.D. 10/01/2020 7:01 PM Head MRA 10/01/20 16:05 MR angio head wo con HISTORY: 55 years-old Female right weakness acute strokelike symptoms COMPARISON: Brain MRI of same day TECHNIQUE: MRA of the head was obtained without the use of IV contrast utilizing 3-D [id number] sequencing with MIP reformats FINDINGS: Watch Engineer localizer images demonstrate no gross extracranial abnormality. The imaged internal carotid arteries, middle and anterior cerebral arteries are patent. Distal vertebral arteries are patent. Basilar and posterior cerebral arteries are patent. IMPRESSION: Unremarkable MRA of the head. ACT 112: Negative or not required by law. The above report was generated using voice recognition software. It may contain grammatical, syntax or spelling errors. Electronically signed by: Dewey Scott M.D. 10/01/2020 6:52 PM ECG Data Attestation: I personally reviewed and interpreted this ECG as follows: Indication: + other (Stroke symptoms) Rate (beats per minute): 91 ECG [place]: + Normal ECG ST segments: no ST elevation ECG Findings: no PVCs MDM Narrative I did evaluate the patient as noted above. The patient is presenting with concerning strokelike symptoms since yesterday at 1 PM. She is over 25 hours past onset of her symptoms. She is therefore not a candidate for IV TPA or endovascular procedures. She does have deficits to the right side of her body and some slurring to her speech which she notices but I have difficulty determining due to her accident. Her blood pressure is very high but she is also very distraught and tearful. I will reassess this carefully. IV access was established. I did place an order for continuous cardiac monitoring. The monitor showed normal sinus rhythm with a rate of 88 bpm. I did order and personally review the patient's 12-lead EKG as described above. She has no acute ischemic changes. I did discuss the case with Dr. Loja of stroke neurology at [facility]. He agreed with my plan to get a noncontrast CT and then MRI and MRA without contrast of the brain. He recommended dual platelet therapy should the CT be negative. I did order a CT of the head. I did review the images myself as well as the radiology report as described above. There is no evidence of acute intracranial abnormality. I did order and review the patient's blood work as noted in the electronic medical record. CBC is unremarkable without leukocytosis or anemia or thrombocytopenia. Electrolytes are remarkable for a chloride of 114 and carbon dioxide of 19. Creatinine is at baseline at 2.1 with a BUN of 31. Troponin is elevated at 0.080 which apparently is chronic for her. Covid screening is negative. I did discuss the test results with the patient. I did recommend hospitalization for further care and evaluation as well as MRI and MRI of the brain. I did discuss case with the hospitalist and case resolution specialist. I did treat the patient with Plavix 300 mg p.o. She is allergic to aspirin and gets hives when she takes aspirin. I did order an MRI of the brain as well as MRA of the head and neck. I did order an MRA of the neck but apparently a cervical spine MRI was performed instead. MRI of the brain shows acute pontine infarcts. Conglomerate measuring up to 1.9 cm. There were some indeterminate cluster foci of T2 flair prolongation within the left parietal lobe cortex and subcortical distribution possibly bilingual sales representative of remote insult. I did discuss the test results with the patient and her . She states her symptoms seem better to her. She still has weakness and drift to the right side of her body. She was admitted to the hospital. Impression & Plan Brainstem infarct, acute, Chronic kidney disease, stage III (moderate), [place] royal troponin Discharge Plan Visit Data Chief Complaint: Stroke/CVA Symptoms Stated Complaint: SLURRED SPEECH/UNABLE TO WALK ED Provider: Mayank Browning Discharge Problem: Brainstem infarct, acute, Chronic kidney disease, stage III (moderate), Elevated troponin Patient Disposition: Admitted As Inpatient Discharge Instructions Interventions: ED Discharge Assessment Last Done: 10/01/20 19:54 Discharge Problem: Chronic kidney disease, stage III (moderate) Qualifiers: Chronic kidney disease stage 3 subtype: unspecified whether 3a or 3b Qualified Code(s): N18.30 - Chronic kidney disease, stage 3 unspecified
[2020-10-01 14:47] LABS: Basophils # (auto) 0.03 K/uL (0-0.2); Basophils % (auto) 0.3 %; Eosinophils # (auto) 0.28 K/uL (0-0.5); Eosinophils % (auto) 2.8 %; Hematocrit (blood only) 37.8 % (37-47); Hemoglobin 13.1 g/dL (12.0-16.0); Immature Granulocytes # (auto) 0.03 K/uL (0.00-0.02); Immature Granulocytes % (auto) 0.3 %; Lymphocytes # (auto) 2.11 K/uL (1.2-3.4); Lymphocytes % (auto) 21.4 %; Mean Corpuscular Hemoglobin 28.2 pg (25-34); Mean Corpuscular Hgb Conc 34.7 g/dL (32-36); Mean Corpuscular Volume 81.3 fL (80-100); Mean Platelet Volume 10.1 fL (7.4-10.4); Monocytes # (auto) 0.62 K/uL (0.11-0.59); Monocytes % (auto) 6.3 %; Neutrophils # (auto) 6.77 K/uL (1.4-6.5); Neutrophils % (auto) 68.9 %; Platelet Count 398 K/uL (130-400); RDW Coefficient of Variation 13.6 % (11.5-14.5); RDW Standard Deviation 40.7 fL (36.4-46.3); Red Blood Count 4.65 M/uL (4.2-5.4); White Blood Count 9.84 K/uL (4.8-10.8)
[2020-10-01 14:53] LABS: INR 0.9 (0.9-1.1); Partial Thromboplastin Ratio 1.1; Partial Thromboplastin Time 27.8 Seconds (21.0-31.0); Prothrombin Time 9.5 Seconds (9.0-12.0)
[2020-10-01 14:59] LABS: Albumin Level 2.8 gm/dl (3.4-5.0); BUN Creatinine Ratio 14.3 (10-20); Calcium 8.6 mg/dl (8.5-10.1); Creatinine Clr Calc Pharmacy 23.9 ml/min; Est GFR (African American) 28.6; Est GFR (Non-African American) 24.7; Potassium 4.3 mmol/L (3.5-5.1)
[2020-10-01 15:20] LABS: Albumin Globulin Ratio 0.6 (0.9-2); Bilirubin,Total 0.2 mg/dl (0.2-1); Globulin 4.5 gm/dl (2.5-4.0); Total Protein 7.3 gm/dl (6.4-8.2); Troponin I 0.08 ng/ml (0-0.045)
--- NOTE | 2020-10-01 16:03 | CT Scan Report ---
CT head/brain wo con CLINICAL HISTORY: 55 years-old Female with right sided weakness eval for stroke. Acute right-sided w eakness TECHNIQUE: Multiple axial CT images of the head were obtained without contrast. A dose lowering tech nique was utilized adhering to the principles of ALARA. CT DOSE: 614.27 mGy.cm COMPARISON: Head CT 09/08/2020. FINDINGS: No acute intracranial hemorrhage, midline shift, intra-axial mass, hydrocephalus, territorial ischemi a or abnormal extra-axial collection. Cerebral vascular calcifications. Senescent calcifications of t he lentiform nuclei. 8 mm calcification adjacent to left frontal lobe on image 25 is suggestive of an extra-axial meningioma. The calvarium is intact. Prior bilateral lens repair. The paranasal sinuses, mastoid air cells, and m iddle ear cavities are clear. IMPRESSION: 1. No acute intracranial abnormality. 2. Calcified subcentimeter meningioma adjacent to the left frontal lobe redemonstrated. ACT 112: Negative or not required by law. The above report was generated using voice recognition software. It may contain grammatical, syntax o r spelling errors. Electronically signed by: Dewey Scott M.D. 10/01/2020 4:02 PM
[2020-10-01] MEDS ORDERED: CLOPIDOGREL BISULFATE 300 MG TAB PO STA (16:05)
--- NOTE | 2020-10-01 16:49 | History & Physical Report ---
Date of Service October 01, 2020 Assessment & Plan (1) Brainstem infarct, acute: 55yo C female with HTN, DM, Tobacco use presenting with right sided neurological deficit. Patient found with acute pontine fracture. No edema or hemorrhage. Patient is >24 hours out from symptom onset, not a candidate for tPA. -Admit to PCU -Neuro checks/NIHSS per protocol -Check Lipids and HgbA1C -Speech evaluation -PT/OT evaluation -Neurology consultation appreciated -ASA 81mg po daily -Plavix 75mg po daily -Crestor 20mg po daily Present on Admission?: Yes (2) Elevated troponin: Patient with chronically elevated troponin, most likely secondary to her underlying PCKD. She denies CP, palpitations. EKG with no evidence of acute ischemia -ASA and Statin as above -Repeat troponin in AM Present on Admission?: Yes (3) Hypertension: Patient with elevated BP currently 153/86 -Hold Amlodipine and Losartan to allow for permissive HTN -Continue to monitor Present on Admission?: Yes (4) Dyslipidemia: Chronic -Increase Crestor to 20mg po daily Present on Admission?: Yes (5) Chronic kidney disease, stage III (moderate): BUN and Cr near baseline -Continue to monitor BUN, Cr and electrolytes -Avoid nephrotoxic agents Present on Admission?: Yes (6) Diabetes mellitus type 2, uncontrolled: Chronic. Elevated blood sugar today at 200 -Lantus 7u BID -ISS F/E/N - Electrolytes WNL, AHA/CC diet as tolerated after dysphagia screening PPx - SCDs Code - Full Dispo - Admit to PCU Present on Admission?: Yes History of Present Illness Chief Complaint: stroke-like symptoms Primary Care Provider: Macie Brand MD Lauren Caal is a 55yo right-handed female presenting with stroke-like symptoms. Patient was recently admitted to [facility] from 09/08/20 - 09/11/20 for syncope. She had an unremarkable workup at that time including an echocardiogram which showed normal LV function, Grade 1 diastolic dysfunction, moderate LVH and mild MR. CT of the head with 8mm calcified meningioma. She was seen by her PCP on 09/27/20 with complaint of dizziness/vertigo episodes for which she was prescribed meclizine PRN. She was seen in the ER on 09/28/20 with complaint of dizziness/vertigo and presyncope which improved with Meclizine. She was discharged home in stable con dition. Yesterday around 13:00 she was at work when a co-worker told her that she didn't look well. She was having slurred speech and was unable to hold anything in her right hand. She also had weakness of the RUE and RLE with difficulty walking, stating that she felt "wobbly". Her symptoms progressed over the last 24 hours. This AM she called the On-Call physician and was instructed to come to the ER. She reports that the weakness in her RUE and RLE have improved but she still has slurred speech. She has some pressure in her head. Otherwise, denies visual disturbance, chest pain, palpitations, cough, SOB, abdominal pain, nausea, vomiting, diarrhea or constipation. No additional complaints at this time. ER Course: Case discussed with St[place] [facility] Plavix 300mg Allergies Allergy/AdvReac Type Severity Reaction Status Date / Time alcohol Allergy Severe SHORTNESS Verified 10/01/20 15:36 OF BREATH aspirin Allergy Intermediate HIVES Verified 10/01/20 15:36 ibuprofen Allergy Mild HIVES Verified 10/01/20 15:36 metformin Allergy Mild BODY PAIN Verified 10/01/20 15:36 Penicillins Allergy Mild HIVES Verified 10/01/20 15:36 Home Medications Medication Instructions Recorded Confirmed Type Accu-Chek Fastclix Lancet Drum #102 ea NS 06/18/19 10/01/20 Rx Accu-Chek Guide Glucose Meter #1 ea NS 06/18/19 10/01/20 Rx Accu-Chek Guide test strips #100 ea NS 06/18/19 10/01/20 Rx Dexcom G6 House Officer #1 ea NS 07/14/19 10/01/20 Rx losartan 50 mg tablet 50 mg PO BID #180 tab 12/31/19 10/01/20 Rx Dexcom G6 Transmitter #1 ea NS 02/03/20 10/01/20 Rx BD Ultra-Fine Valentina Pen Needle 32 #400 ea NS 04/07/20 10/01/20 Rx gauge x 5/32" Dexcom G6 Sensor #3 box NS 04/28/20 10/01/20 Rx amlodipine 10 mg tablet 10 mg PO QAM #90 tab 07/11/20 10/01/20 Rx Basaglar KwikPen U-100 Insulin 100 14 unit SUBCUT HS #15 ml NS 09/01/20 10/01/20 Rx unit/mL (3 mL) subcutaneous ergocalciferol (vitamin D2) 1,250 mcg PO WK 09/08/20 10/01/20 History escitalopram oxalate [Lexapro] 5 mg PO QAM 09/08/20 10/01/20 History rosuvastatin [Crestor] 5 mg PO 2XWK 09/08/20 10/01/20 History meclizine 25 mg tablet 25 mg PO TID PRN #30 tab 09/27/20 10/01/20 Rx Past Med/Surg History Medical History Abnormal TSH Acute kidney injury superimposed on CKD SARA (acute kidney injury) Asthma NO INHALER USED for the past 40 years. No h/o hospitalization or intubation Chronic kidney disease ? STAGE Dental abscess Diabetes mellitus type 2, uncontrolled Diabetic nephropathy Diabetic retinopathy, nonproliferative Disc degeneration, lumbar Dyslipidemia Elevated troponin Fibromyalgia Hemorrhoids Hypertension Impaired memory Syncopal episodes Tobacco use Surgical History H/O hysterectomy for benign disease History of cataract surgery R; was given 4mg versed and 100mcg fentanyl along with ketamine and benadryl due to itching from fentanyl History of section History of colonoscopy History of dilatation and curettage History of hysterectomy History of tooth extraction Family History Aunt Breast cancer Denies family history of Ovarian cancer Prostate cancer Myocardial infarction Colorectal cancer Cystic kidney disease Social History Smoking Status: Current every day smoker Tobacco Type: Cigarettes Cigarettes Per Day: 2; Second Hand Exposure: Yes ( is current smoker); Hx Alcohol Use: No Hx Substance Use: No Preferred Language: Mohawk Communication Ability: Effective Windows Mobile Developer Required: No Beliefs That Will Affect Care: None marital status: Current Living Situation: Spouse current occupational status: employed Feels Safe at Home: Yes Childhood Exposure to Second-Hand Smoke: Yes Dental Care, Regularly: Yes Physical Activity Frequency: Does not Exercise Seatbelt Use: always Sunscreen Use: Yes Assistive Devices: Denture - Upper, Denture - Lower and Glasses Review of Systems Review of Systems: All systems reviewed & are unremarkable except as noted in HPI & below Physical Exam Physical Exam: General: patient resting comfortably, NAD, non-toxic in appear ance, AA&O x 4 Skin: warm, dry, intact, no rashes or lesions HEENT: NC/AT, PERRL, EOMI, anicteric sclera, conjunctiva without injection, external ear normal to inspection and nontender, nares patent, moist mucus membranes, dentition intact, no oropharyngeal lesions, neck supple, trachea midline, no LAD, no thyromegaly, no JVD Heart: +S1/S2, regular, no m/r/g Lungs: equal air entry bilaterally, no rales/rhonchi/wheezes Abd: +BS, soft, NT/ND, no masses/organomegaly/ascites Ext: warm, 2+ pulses in UE/LE bilaterally, no clubbing/cyanosis or edema Neuro: Patient AA&O x 4, speech is slow and dysarthric, no facial droop, tongue midline, CN II - XII intact, sensation to light touch intact bilaterally, MS in LUE 5/5, 4/5 in RUE with pronator drift, MS in LLE 5/5 and 4+/5 in RLE with drift Results & Data Results & Data ([facility]) Vital Signs (Past 12 Hours) Vital Signs Temp Pulse Pulse Resp BP BP Pulse Ox 10/01/20 16:15 81 21 157/90 H 100 10/01/20 14:29 99 10/01/20 14:13 36.5 C 87 18 180/91 H 100 Laboratory Results Lab Results 10/01/20 10/01/20 10/01/20 Range/Units 14:25 14:25 14:25 WBC 9.84 (4.8-10.8) K/uL RBC 4.65 (4.2-5.4) M/uL Hgb 13.1 (12.0-16.0) g/dL Hct 37.8 (37-47) % MCV 81.3 (80-100) fL MCH 28.2 (25-34) pg MCHC 34.7 (32-36) g/dL RDW Std Deviation 40.7 (36.4-46.3) fL RDW Coeff of Josias 13.6 (11.5-14.5) % Plt Count 398 (130-400) K/uL MPV 10.1 (7.4-10.4) fL Immature Gran % (Auto) 0.3 % Neut % (Auto) 68.9 % Lymph % (Auto) 21.4 % Vernon % (Auto) 6.3 % Eos % (Auto) 2.8 % Baso % (Auto) 0.3 % Neut # (Auto) 6.77 H (1.4-6.5) K/uL Lymph # (Auto) 2.11 (1.2-3.4) K/uL Vernon # (Auto) 0.62 H (0.11-0.59) K/uL Eos # (Auto) 0.28 (0-0.5) K/uL Baso # (Auto) 0.03 (0-0.2) K/uL Immature Gran # (Auto) 0.03 H (0.00-0.02) K/uL PT 9.5 (9.0-12.0) Seconds INR 0.9 (0.9-1.1) APTT 27.8 (21.0-31.0) Seconds PTT Ratio 1.1 Sodium 141 (136-145) mmol/L Potassium 4.3 (3.5-5.1) mmol/L Chloride 114 H (98-107) mmol/L Carbon Dioxide 19 L (21-32) mmol/L Anion Gap 8.0 (3-11) BUN 31 H (7-18) mg/dl Creatinine 2.17 H (0.6-1.2) mg/dl Est Cr Clr Drug Dosing 23.9 ml/min Est GFR ( Amer) 28.6 Est GFR (Non-Af Amer) 24.7 BUN/Creatinine Ratio 14.3 (10-20) Glucose 200 H (70-99) mg/dl Calcium 8.6 (8.5-10.1) mg/dl Magnesium 2.0 (1.8-2.4) mg/dl Total Bilirubin 0.2 (0.2-1) mg/dl AST 15 (15-37) U/L ALT 16 (12-78) U/L Alkaline Phosphatase 137 H (45-117) U/L Troponin I 0.080 H* (0-0.045) ng/ml Total Protein 7.3 (6.4-8.2) gm/dl Albumin 2.8 L (3.4-5.0) gm/dl Globulin 4.5 H (2.5-4.0) gm/dl Albumin/Globulin Ratio 0.6 L (0.9-2) COVID-19 Eval Order SARS-CoV-2 (PCR) (Negative) Influenza Type A (PCR) (Neg) Influenza Type B (PCR) (Neg) RSV (RT-PCR) (Neg) 10/01/20 10/01/20 Range/Units 16:22 16:22 WBC (4.8-10.8) K/uL RBC (4.2-5.4) M/uL Hgb (12.0-16.0) g/dL Hct (37-47) % MCV (80-100) fL MCH (25-34) pg MCHC (32-36) g/dL RDW Std Deviation (36.4-46.3) fL RDW Coeff of Josias (11.5-14.5) % Plt Count (130-400) K/uL MPV (7.4-10.4) fL Immature Gran % (Auto) % Neut % (Auto) % Lymph % (Auto) % Vernon % (Auto) % Eos % (Auto) % Baso % (Auto) % Neut # (Auto) (1.4-6.5) K/uL Lymph # (Auto) (1.2-3.4) K/uL Vernon # (Auto) (0.11-0.59) K/uL Eos # (Auto) (0-0.5) K/uL Baso # (Auto) (0-0.2) K/uL Immature Gran # (Auto) (0.00-0.02) K/uL PT (9.0-12.0) Seconds INR (0.9-1.1) APTT (21.0-31.0) Seconds PTT Ratio Sodium (136-145) mmol/L Potassium (3.5-5.1) mmol/L Chloride (98-107) mmol/L Carbon Dioxide (21-32) mmol/L Anion Gap (3-11) BUN (7-18) mg/dl Creatinine (0.6-1.2) mg/dl Est Cr Clr Drug Dosing ml/min Est GFR ( Amer) Est GFR (Non-Af Amer) BUN/Creatinine Ratio (10-20) Glucose (70-99) mg/dl Calcium (8.5-10.1) mg/dl Magnesium (1.8-2.4) mg/dl Total Bilirubin (0.2-1) mg/dl AST (15-37) U/L ALT (12-78) U/L Alkaline Phosphatase (45-117) U/L Troponin I (0-0.045) ng/ml Total Protein (6.4-8.2) gm/dl Albumin (3.4-5.0) gm/dl Globulin (2.5-4.0) gm/dl Albumin/Globulin Ratio (0.9-2) COVID-19 Eval Order CovFluRsv at [facility] SARS-CoV-2 (PCR) NEGATIVE (Negative) Influenza Type A (PCR) Negative (Neg) Influenza Type B (PCR) Negative (Neg) RSV (RT-PCR) Negative (Neg) Diagnostic Findings CT head/brain wo con CLINICAL HISTORY: 55 years-old Female with right sided weakness eval for stroke. Acute right-sided weakness TECHNIQUE: Multiple axial CT images of the head were obtained without contrast. A dose lowering technique was utilized adhering to the principles of ALARA. CT DOSE: 614.27 mGy.cm COMPARISON: Head CT 09/08/2020. FINDINGS: No acute intracranial hemorrhage, midline shift, intra-axial mass, hydrocephalus, territorial ischemia or abnormal extra-axial collection. Cerebral vascular calcifications. Senescent calcifications of the lentiform nuclei. 8 mm calcification adjacent to left frontal lobe on image 25 is suggestive of an extra-axial meningioma. The calvarium is intact. Prior bilateral lens repair. The paranasal sinuses, mastoid air cells, and middle ear cavities are clear. IMPRESSION: 1. No acute intracranial abnormality. 2. Calcified subcentimeter meningioma adjacent to the left frontal lobe redemonstrated. ACT 112: Negative or not required by law. The above report was generated using voice recognition software. It may contain grammatical, syntax or spelling errors. Electronically signed by: Dewey Scott M.D. 10/01/2020 4:02 PM Dictated: 10/01/20 155Transcribed: 10/01/20 155 == MR brain wo con HISTORY: 55 years-old Female right-sided weakness acute hypertension with strokelike symptoms COMPARISON: Head CT of same day and also 09/08/2020 TECHNIQUE: Multiplanar multisequence MRI a the brain was obtained without the use of IV contrast. FINDINGS: There are several foci of restricted diffusion within the central, ventral and left paracentral urban with decreased signal on ADC map and increased T2/STIR signal, conglomerate measuring up to 1.9 cm in greatest dimension. Artifact from metallic density of the face most notably limits the diffusion-weighted images. No acute intracranial hemorrhage, midline shift, abnormal extra-axial collection, hydrocephalus or intra-axial mass. 8 mm calcified meningioma adjacent to left frontal lobe redemonstrated. Senescent calcifications of the lentiform nuclei. Mild patchy T2/FLAIR hyperintensities are noted throughout the white matter with a cluster of foci present within the left parietal lobe extending to the cortex on images 20 and 21 of the coronal series and possibly indirect sales representative of a chronic insult. Cerebral venous sinuses are patent. Major vascular flow voids are also patent. The mastoid air cells are clear. Mild polypoid mucosal thickening of the right maxillary sinus. Prior bilateral lens repair. Skull and soft tissues are un remarkable. IMPRESSION: 1. Acute pontine infarcts, conglomerate measuring up to 1.9 cm. 2. No acute intracranial hemorrhage or midline shift. 3. Suggested mild chronic microvascular ischemic disease. 4. Indeterminate clustered foci of T2/FLAIR prolongation within the left parietal lobe cortex and subcortical distribution, possibly indirect sales representative of remote insult. 5. Subcentimeter calcified meningioma adjacent to the left frontal lobe. ACT 112: Negative or not required by law. The above report was generated using voice recognition software. It may contain grammatical, syntax or spelling errors. Electronically signed by: Dewey Scott M.D. 10/01/2020 6:46 PM Dictated: 10/01/201837Transcribed: 10/01/201837 MR cervical spine wo con HISTORY: 55 years-old Female right weakness acute neck pain with right-sided weakness COMPARISON: Brain MRI of same day TECHNIQUE: Multiplanar multisequence MRI of the cervical spine was obtained without the use of contrast. FINDINGS: T2 hyperintense foci of the pontine brainstem, better characterized on brain MRI of same day. 7 mm T3 vertebral body hemangioma. Straightening of the normal cervical lordosis. No acute fracture, subluxation, bone marrow or soft tissue edema. Signal within the cervical and imaged thoracic spinal cord appears normal. Unremarkable soft tissues of the neck. C2-C3: Mild facet arthrosis. No central canal or neural foraminal narrowing. C3-C4: Mild uncovertebral spurring and facet arthrosis. No central canal or neural foraminal narrowing. C4-C5: Mild uncovertebral spurring and facet arthrosis. No central canal or neural foraminal narrowing. C5-C6: Mild intervertebral disc space narrowing with uncovertebral spurring and small posterior disc osteophyte complex with mild facet arthrosis. No central canal or neural foraminal narrowing. C6-C7: Moderate intervertebral disc space narrowing with spondylitic spurring and circumferential annular disc bulge with disc osteophyte complex. Mild facet arthrosis. Flattening of the ventral thecal sac without significant central canal narrowing. Moderate right with [id number] left neuroforaminal narrowing. C7-T1: Mild facet arthrosis. No central canal or neural foraminal narrowing. IMPRESSION: 1. T2 hyperintense foci of the pontine brainstem correlate with the acute infarcts which are better characterized on the brain MRI of same day. 2. Discogenic degeneration and facet arthrosis as above, most pronounced at C6- C7 resulting in moderate right with [id number] left neuroforaminal narrowing. 3. No high-grade central canal stenosis. ACT 112: Negative or not required by law. The above report was generated using voice recognition software. It may contain grammatical, syntax or spelling errors. Electronically signed by: Dewey Scott M.D. 10/01/2020 7:01 PM Dictated: 10/01/201853Transcribed: 10/01/201853 MR angio head wo con HISTORY: 55 years-old Female right weakness acute strokelike symptoms COMPARISON: Brain MRI of same day TECHNIQUE: MRA of the head was obtained without the use of IV contrast utilizing 3-D [id number] sequencing with MIP reformats FINDINGS: Field Support Representative localizer images demonstrate no gross extracranial abnormality. The imaged internal carotid arteries, middle and anterior cerebral arteries are patent. Distal vertebral arteries are patent. Basilar and posterior cerebral arteries are patent. IMPRESSION: Unremarkable MRA of the head. ACT 112: Negative or not required by law. The above report was generated using voice recognition software. It may contain grammatical, syntax or spelling errors. Electronically signed by: Dewey Scott M.D. 10/01/2020 6:52 PM Dictated: 10/01/201845Transcribed: 10/01/201845 ECG Additional Comments: DICTATED BY: Javier Castro MD Test Reason : Blood Pressure : / mmHG Vent. Rate : 091 BPM Atrial Rate : 091 BPM P-R Int : 150 ms QRS Dur : 080 ms QT Int : 340 ms P-R-T Axes : 068 025 066 degrees QTc Int : 418 ms Normal sinus rhythm When compared with ECG of 28-SEP-2020 13:35, No significant change was found Confirmed by Javier Castro ([id number]) on 10/01/2020 6:47:04 PM Referred By: Confirmed By:Alexys Castro PG Care Time/CCT Total # of Minutes Spent Total Time Spent with Patient: Total time spent is greater than 50% in coordination of care (as documented) at patient's floor/unit and/or counseling patient: Coding Level of Care Code 48760 Initial Inpt Care Lvl 3 Diagnoses Brainstem infarct, acute I63.89 Elevated troponin R77.8 Hypertension I10 Hypertension type: essential hypertension Dyslipidemia E78.5 Chronic kidney disease, stage III (moderate) N18.30 Chronic kidney disease stage 3 subtype: unspecified whether 3a or 3b Diabetes mellitus type 2, uncontrolled E11.65 Glycemic state: with hyperglycemia (1) Hypertension Hypertension type: essential hypertension Qualified Code(s): I10 - Essential (primary) hypertension (2) Chronic kidney disease, stage III (moderate) Chronic kidney disease stage 3 subtype: unspecified whether 3a or 3b Qualified Code(s): N18.30 - Chronic kidney disease, stage 3 unspecified (3) Diabetes mellitus type 2, uncontrolled Glycemic state: with hyperglycemia Qualified Code(s): E11.65 - Type 2 diabetes mellitus with hyperglycemia
[2020-10-01 18:12] LABS: Influenza A virus by PCR Negative (Neg); Influenza B virus by PCR Negative (Neg); RSV by PCR Negative (Neg); SARS CoV2 RNA(COVID-19) InHosp NEGATIVE (Negative)
--- NOTE | 2020-10-01 18:47 | Electrocardiogram Report ---
Test Reason : Blood Pressure : / mmHG Vent. Rate : 091 BPM Atrial Rate : 091 BPM P-R Int : 150 ms QRS Dur : 080 ms QT Int : 340 ms P-R-T Axes : 068 025 066 degrees QTc Int : 418 ms Normal sinus rhythm When compared with ECG of 28-SEP-2020 13:35, No significant change was found Confirmed by Javier Castro ([id number]) on 10/01/2020 6:47:04 PM Referred By: Confirmed By:Alexys Castro
--- NOTE | 2020-10-01 18:48 | Magnetic Resonance Report ---
MR brain wo con HISTORY: 55 years-old Female right-sided weakness acute hypertension with strokelike symptoms COMPARISON: Head CT of same day and also 09/08/2020 TECHNIQUE: Multiplanar multisequence MRI a the brain was obtained without the use of IV contrast. FINDINGS: There are several foci of restricted diffusion within the central, ventral and left paracentral urban with decreased signal on ADC map and increased T2/STIR signal, conglomerate measuring up to 1.9 cm in greatest dimension. Artifact from metallic density of the face most notably limits the diffusion-kilo ghted images. No acute intracranial hemorrhage, midline shift, abnormal extra-axial collection, hydro cephalus or intra-axial mass. 8 mm calcified meningioma adjacent to left frontal lobe redemonstrated. Senescent calcifications of the lentiform nuclei. Mild patchy T2/FLAIR hyperintensities are noted th roughout the white matter with a cluster of foci present within the left parietal lobe extending to t he cortex on images 20 and 21 of the coronal series and possibly client relations representative of a chronic insult. Cerebral venous sinuses are patent. Major vascular flow voids are also patent. The mastoid air cells are clear. Mild polypoid mucosal thickening of the right maxillary sinus. Prior bilateral lens repair . Skull and soft tissues are unremarkable. IMPRESSION: 1. Acute pontine infarcts, conglomerate measuring up to 1.9 cm. 2. No acute intracranial hemorrhage or midline shift. 3. Suggested mild chronic microvascular ischemic disease. 4. Indeterminate clustered foci of T2/FLAIR prolongation within the left parietal lobe cortex and sub cortical distribution, possibly client relations representative of remote insult. 5. Subcentimeter calcified meningioma adjacent to the left frontal lobe. ACT 112: Negative or not required by law. The above report was generated using voice recognition software. It may contain grammatical, syntax o r spelling errors. Electronically signed by: Dewey Scott M.D. 10/01/2020 6:46 PM
--- NOTE | 2020-10-01 18:54 | Magnetic Resonance Report ---
MR angio head wo con HISTORY: 55 years-old Female right weakness acute strokelike symptoms COMPARISON: Brain MRI of same day TECHNIQUE: MRA of the head was obtained without the use of IV contrast utilizing 3-D [id number] s equencing with MIP reformats FINDINGS: Calender Operator Helper localizer images demonstrate no gross extracranial abnormality. The imaged internal carotid art eries, middle and anterior cerebral arteries are patent. Distal vertebral arteries are patent. Basila r and posterior cerebral arteries are patent. IMPRESSION: Unremarkable MRA of the head. ACT 112: Negative or not required by law. The above report was generated using voice recognition software. It may contain grammatical, syntax o r spelling errors. Electronically signed by: Dewey Scott M.D. 10/01/2020 6:52 PM
--- NOTE | 2020-10-01 19:02 | Magnetic Resonance Report ---
MR cervical spine wo con HISTORY: 55 years-old Female right weakness acute neck pain with right-sided weakness COMPARISON: Brain MRI of same day TECHNIQUE: Multiplanar multisequence MRI of the cervical spine was obtained without the use of contra st. FINDINGS: T2 hyperintense foci of the pontine brainstem, better characterized on brain MRI of same day. 7 mm T3 vertebral body hemangioma. Straightening of the normal cervical lordosis. No acute fracture, subluxa tion, bone marrow or soft tissue edema. Signal within the cervical and imaged thoracic spinal cord ap pears normal. Unremarkable soft tissues of the neck. C2-C3: Mild facet arthrosis. No central canal or neural foraminal narrowing. C3-C4: Mild uncovertebral spurring and facet arthrosis. No central canal or neural foraminal narrowin g. C4-C5: Mild uncovertebral spurring and facet arthrosis. No central canal or neural foraminal narrowin g. C5-C6: Mild intervertebral disc space narrowing with uncovertebral spurring and small posterior disc osteophyte complex with mild facet arthrosis. No central canal or neural foraminal narrowing. C6-C7: Moderate intervertebral disc space narrowing with spondylitic spurring and circumferential brenden ular disc bulge with disc osteophyte complex. Mild facet arthrosis. Flattening of the ventral thecal sac without significant central canal narrowing. Moderate right with [id number]-[id number] left neuroforam inal narrowing. C7-T1: Mild facet arthrosis. No central canal or neural foraminal narrowing. IMPRESSION: 1. T2 hyperintense foci of the pontine brainstem correlate with the acute infarcts which are better c haracterized on the brain MRI of same day. 2. Discogenic degeneration and facet arthrosis as above, most pronounced at C6-C7 resulting in modera te right with mqcr-ge-vybywevu left neuroforaminal narrowing. 3. No high-grade central canal stenosis. ACT 112: Negative or not required by law. The above report was generated using voice recognition software. It may contain grammatical, syntax o r spelling errors. Electronically signed by: Dewey Scott M.D. 10/01/2020 7:01 PM
[2020-10-01] MEDS ORDERED: PHARMACIST DISCHARGE MED REC CONSULT PRN (20:39)
[2020-10-01] MEDS ORDERED: GLUCAGON FOR INJ 1 MG VIAL SQ PRN (20:39)
[2020-10-01] MEDS ORDERED: DEXTROSE 50% 50 ML SYRINGE IV PRN (20:39)
[2020-10-01] MEDS ORDERED: CARBOHYDRATES FOR HYPOGLYCEMIA PO PRN (20:39)
[2020-10-01] MEDS ORDERED: GLUCOSE 10 TABS/TUBE PO PRN (20:39)
[2020-10-01] MEDS ORDERED: GLUCOSE 40% GEL 15 GM TUBE PO PRN (20:39)
[2020-10-01] MEDS: INSULIN ASPART 100 UNITS/ML 3 ML PEN SC SCH (21:40)
[2020-10-01] MEDS: INSULIN GLARGINE SOLOSTAR 100 UNITS/ML 3 ML PEN SC SCH (21:40)
[2020-10-02 07:01] LABS: Basophils # (auto) 0.02 K/uL (0-0.2); Basophils % (auto) 0.2 %; Eosinophils # (auto) 0.32 K/uL (0-0.5); Eosinophils % (auto) 3.4 %; Hematocrit (blood only) 35.7 % (37-47); Hemoglobin 11.9 g/dL (12.0-16.0); Immature Granulocytes # (auto) 0.01 K/uL (0.00-0.02); Immature Granulocytes % (auto) 0.1 %; Lymphocytes # (auto) 2.04 K/uL (1.2-3.4); Lymphocytes % (auto) 21.6 %; Mean Corpuscular Hemoglobin 27.6 pg (25-34); Mean Corpuscular Hgb Conc 33.3 g/dL (32-36); Mean Corpuscular Volume 82.8 fL (80-100); Mean Platelet Volume 9.7 fL (7.4-10.4); Monocytes # (auto) 0.72 K/uL (0.11-0.59); Monocytes % (auto) 7.6 %; Neutrophils # (auto) 6.33 K/uL (1.4-6.5); Neutrophils % (auto) 67.1 %; Platelet Count 339 K/uL (130-400); RDW Coefficient of Variation 13.5 % (11.5-14.5); RDW Standard Deviation 41.1 fL (36.4-46.3); Red Blood Count 4.31 M/uL (4.2-5.4); White Blood Count 9.44 K/uL (4.8-10.8)
[2020-10-02 07:32] LABS: BUN Creatinine Ratio 15.2 (10-20); Calcium 9.2 mg/dl (8.5-10.1); Creatinine Clr Calc Pharmacy 26.5 ml/min; Est GFR (African American) 32.3; Est GFR (Non-African American) 27.9; Potassium 3.8 mmol/L (3.5-5.1)
[2020-10-02 07:37] LABS: Troponin I 0.068 ng/ml (0-0.045)
--- NOTE | 2020-10-02 08:21 | Neurology Consultation ---
Date of Consultation October 02, 2020 Assessment & Plan (1) Left pontine stroke: Lauren Caal is a 55 yo woman w/ PMH of HTN, HLD, DM c/b retinopathy/nephropathy/neuropathy, fibromyalgia, asthma, CKD, tobacco abuse, PCKD, anxiety and abnormal TSH who p/t [facility] with acute onset of R-sided weak ness, ataxia and dysarthria. Symptom localization: left urban Stroke mechanism: cardioembolic vs lacunar/lipohyalinosis, less likely vessel to vessel though neck vessel imaging unavailable Stroke WorkUp: - CT head: shows no hemorrhage or hypodensity, left frontal meningioma, calcification of the right vertebral artery noted, and moderate calcification of bilateral basal ganglia noted - CTA head/neck: unable to obtain 2/2 CKD - MRI brain: shows a subacute infarct in the left paramedian urban extending to the left dorsal midbrain, left frontal meningioma, mild SVID, calcification of bilateral basal ganglia noted, T2 hyperintensity in the left parietal lobe with DWI/ADC correlate - MRA head/neck: MRA head shows no LVO, high grade stenosis or aneurysm. MRA neck not obtained. - TTE: pending - Telemetry: pending - A1c: pending - FLP: 183 - Troponin, TSH: mildly elevated (likely 2/2 CKD), WNL Stroke Management: - Acute treatment: ASA - Continuous cardiac monitoring, 30 day event monitor as outpatient if telemetry here unrevealing - Vitals, Neurochecks, NIHSS per unit routine - BP parameters: SBP CAP 180, restart home anti-hypertensives for goal normotension over next 3-4 days - Obtain MRA neck to r/o significant stenosis of vertebral arteries - Complete ischemic stroke workup with TTE without bubble, A1c - Consult speech, PT, OT for supportive management - Will sales counselor concerning stroke education, smoking cessation, healthy diet, physical activity, weight loss - Follow up with PCP for assistance with outpatient goals (BP <130/80, LDL <70, A1c <7) - Follow up in neurology clinic in 6-8 weeks with RENARD Louise (should re- schedule upcoming neurology appointment as she will likely be in rehab still) Secondary Stroke Prevention: - Antiplatelet: plavix 75mg daily (given h/o ASA allergy) - Anticoagulation: Not indicated at this time - Statin: Atorvastatin 80mg daily HTN: - BP parameters, as above - Restart home medications with goal of lowering BP to normotension over next 3- 4 days FEN/GI: - Diet: NPO until cleared by Speech evaluation - Monitor lytes and replete PRN Glucose Control: - Sliding scale insulin and accuchecks per primary team to avoid hyperglycemia Thank you for this interesting consult. Plan of care was discussed with primary team. Please call with any questions. (2) Meningioma: (3) Diabetes mellitus type 2, uncontrolled: (4) Hypertension: (5) Dyslipidemia: (6) Tobacco use: History of Present Illness Attending Physician: Florencio Talley DO History of Present Illness Lauren Caal is a 55 yo woman w/ PMH of HTN, HLD, DM c/b retinopathy/nephropathy/neuropathy, fibromyalgia, asthma, CKD, tobacco abuse, PCKD, anxiety and abnormal TSH who p/t [facility] with acute onset of R-sided weakness, ataxia and dysarthria. 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 In the ED, she was afebrile, BP 180/91, heart rate 87, respiratory rate 18, satting 1% on room air. On closure WBC 9.4, hemoglobin 13.1, platelets 398, sodium 141, potassium 4.3, mildly elevated chloride 114, creatinine 2.17, glucose 200, calcium/magnesium within normal, LFTs within normal, troponin mildly elevated 0.08, albumin low at 2.8, Covid negative. Imaging reviewed. CT head shows no hemorrhage or hypodensity, left frontal meningioma, calcification of the right vertebral artery noted, and moderate calcification of bilateral basal ganglia noted. MRI brain shows a subacute infarct in the left paramedian urban extending to the left dorsal midbrain, left frontal meningioma, mild SVID, calcification of bilateral basal ganglia noted, T2 hyperintensity in the left parietal lobe with DWI/ADC correlate. MRA head shows no LVO, high grade stenosis or aneurysm. MRA neck not obtained. On examination, she reports that she has been having intermittent episodes of vertigo the last few weeks. While at work on Saturday, she had acute onset of dizziness, weakness in the R>L leg and sensation of slurred speech. Reports that she had previously been told that her symptoms were due to dehydration. Evaluated in ED as above, and found to have a stroke. Not on aspirin due to reported h/o hives. Stroke Workflow: Where patient arrived from: home CT ASPECT: 10 Time IV tpa is given: NA tPA bolus: NA tPA dose: NA If tpa not given, why not: Outside of time window If delay >60min after hospital arrival, why: NA If no IA therapy, why not: No LVO on MRA Patient Features: Admission NIHSS: 5 Admission Modified Celi Scale: 0-1 Time patient last seen well: 1pm on 09/30/20 Wake up stroke: No Intubation status: Not intubated Stroke Risk Factors: Hypertension: Y Hyperlipidemia: Y Atrial Fib: N Tobacco: Y Diabetes: Y Taking NOAC or warfarin: N Allergies Allergy/AdvReac Type Severity Reaction Status Date / Time alcohol Allergy Severe SHORTNESS Verified 10/01/20 15:36 OF BREATH aspirin Allergy Intermediate HIVES Verified 10/01/20 15:36 ibuprofen Allergy Mild HIVES Verified 10/01/20 15:36 metformin Allergy Mild BODY PAIN Verified 10/01/20 15:36 Penicillins Allergy Mild HIVES Verified 10/01/20 15:36 Home Medications Medication Instructions Recorded Confirmed Type Accu-Chek Fastclix Lancet Drum #102 ea NS 06/18/19 10/01/20 Rx Accu-Chek Guide Glucose Meter #1 ea NS 06/18/19 10/01/20 Rx Accu-Chek Guide test strips #100 ea NS 06/18/19 10/01/20 Rx Dexcom G6 Resident Hall Director #1 ea NS 07/14/19 10/01/20 Rx losartan 50 mg tablet 50 mg PO BID #180 tab 12/31/19 10/01/20 Rx Dexcom G6 Transmitter #1 ea NS 02/03/20 10/01/20 Rx BD Ultra-Fine Valentina Pen Needle 32 #400 ea NS 04/07/20 10/01/20 Rx gauge x 5/32" Dexcom G6 Sensor #3 box NS 04/28/20 10/01/20 Rx amlodipine 10 mg tablet 10 mg PO QAM #90 tab 07/11/20 10/01/20 Rx Basaglar KwikPen U-100 Insulin 100 14 unit SUBCUT HS #15 ml NS 09/01/20 10/01/20 Rx unit/mL (3 mL) subcutaneous ergocalciferol (vitamin D2) 1,250 mcg PO WK 09/08/20 10/01/20 History escitalopram oxalate [Lexapro] 5 mg PO QAM 09/08/20 10/01/20 History rosuvastatin [Crestor] 5 mg PO 2XWK 09/08/20 10/01/20 History meclizine 25 mg tablet 25 mg PO TID PRN #30 tab 09/27/20 10/01/20 Rx Patient History Medical History Abnormal TSH Acute kidney injury superimposed on CKD SARA (acute kidney injury) Asthma NO INHALER USED for the past 40 years. No h/o hospitalization or intubation Chronic kidney disease ? STAGE Dental abscess Diabetes mellitus type 2, uncontrolled Diabetic nephropathy Diabetic retinopathy, nonproliferative Disc degeneration, lumbar Dyslipidemia Elevated troponin Fibromyalgia Hemorrhoids Hypertension Impaired memory Syncopal episodes Tobacco use Surgical History H/O hysterectomy for benign disease History of cataract surgery R; was given 4mg versed and 100mcg fentanyl along with ketamine and benadryl due to itching from fentanyl History of section History of colonoscopy History of dilatation and curettage History of hysterectomy History of tooth extraction Family History Aunt Breast cancer Denies family history of Ovarian cancer Prostate cancer Myocardial infarction Colorectal cancer Cystic kidney disease Social History Smoking Status: Current every day smoker Tobacco Type: Cigarettes Cigarettes Per Day: 3; Second Hand Exposure: Yes ( is current smoker); Tobacco Cessation Education Requested by Patient: No Hx Alcohol Use: No Hx Substance Use: No Preferred Language: Indonesian Communication Ability: Effective 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 Exam (Neuro) Physical Exam: General Exam: GEN: NAD, lying down in examination bed. HEENT: No conjunctival injection, no rhinorrhea. CV: RRR on monitor, no significant edema. PULM: Nonlabored respirations on room air. Neuro Exam: MS: Awake and Alert. Oriented to person, place, and date. Speech fluent and appropriate, + dysarthria, no paraphasic errors. Language intact including naming, comprehension, repetition. Cognition and memory grossly intact. Attention intact. No neglect. CN: Visual campa full, + blink to threat bilaterally. No extinction to double simultaneous stimuli. Unable to visualize fundi on fundoscopic exam. PERRLA OU. EOMI without nystagmus. Facial sensation intact to LT. R FP. Hearing intact to conversation. Shoulder shrug normal. Tongue midline. MOTOR: Normal bulk and tone. + pronator drift in RUE. LUE strength 5/5 at deltoids, biceps, triceps, wrist flexors and extensors. RUE strength 3/5 at deltoids, 4-/5 biceps, 4-/5 triceps, 4/5 wrist flexors and extensors. BLE strength 5/5 at iliopsoas, hamstrings, quadriceps, tibialis anterior, and gastrocnemius bilaterally. REFLEXES: 1+ at biceps, triceps, brachioradialis, 1+ patella, and absent Achilles bilaterally. Flexor plantar responses bilaterally. SENSORY: Intact to LT throughout, no extinction to double simultaneous stimuli. COORDINATION: + dysmetria in RUE [id number] bilaterally. GAIT: Deferred due to physical status. NIH STROKE SCALE 1A. Level of Consciousness (0-3) = 0 1B. LOC Questions (0-2) = 0 1C. LOC Commands (0-2) = 0 2. Best Horizontal Gaze (0-2) = 0 3. Visual Campa (0-3) = 0 4. Facial Palsy (0-3) = 1 5. Motor Arm Right (0-4) = 2 Left (0-4) = 0 6. Motor Leg Right (0-4) = 0 Left (0-4) = 0 7. Limb Ataxia (0-2) = 1 8. Sensory (0-2) = 0 9. Best Language (0-3) = 0 10. Dysarthria (0-2) = 1 11. Extinction and Inattention (0-2) = 0 NIHSS TOTAL = 5 Results & Data ([facility]) Vital Signs (Past 12 Hours) Vital Signs Temp Pulse Resp BP Pulse Ox 10/02/20 07:16 36.7 C 72 18 161/82 H 100 10/02/20 03:57 37 C 68 16 161/73 H 99 10/02/20 00:12 36.8 C 79 16 188/97 H 99 10/01/20 20:25 37.1 C 79 18 205/100 H 100 PG Care Time/CCT Total # of Minutes Spent Total Time Spent with Patient: Total time spent is greater than 50% in coordination of care (as documented) at patient's floor/unit and/or counseling patient: Coding Level of Care Code 72332 Inpt Consult Level 5 Diagnoses Left pontine stroke I63.50 Meningioma D32.9 Diabetes mellitus type 2, uncontrolled E11.65 Glycemic state: with hyperglycemia Hypertension I10 Hypertension type: essential hypertension Dyslipidemia E78.5 Tobacco use Z72.0 (1) Diabetes mellitus type 2, uncontrolled Glycemic state: with hyperglycemia Qualified Code(s): E11.65 - Type 2 diabetes mellitus with hyperglycemia (2) Hypertension Hypertension type: essential hypertension Qualified Code(s): I10 - Essential (primary) hypertension
[2020-10-02] MEDS: INSULIN ASPART 100 UNITS/ML 3 ML PEN SC SCH ×4 (08:34→20:38)
[2020-10-02] MEDS: INSULIN GLARGINE SOLOSTAR 100 UNITS/ML 3 ML PEN SC SCH ×2 (08:34→20:38)
[2020-10-02] MEDS ORDERED: ROSUVASTATIN CALCIUM 20 MG TAB PO SCH (09:00)
[2020-10-02] MEDS: CLOPIDOGREL BISULFATE 75 MG TAB PO SCH (10:43)
[2020-10-02] MEDS: ASPIRIN 81 MG ECTAB PO SCH ×2 (10:43→10:47)
[2020-10-02] MEDS: ESCITALOPRAM OXALATE 10 MG TAB PO SCH (10:43)
--- NOTE | 2020-10-02 14:29 | Magnetic Resonance Report ---
MR angio neck wo con CLINICAL HISTORY: Acute pontine infarct. Evaluate for vertebral artery stenosis COMPARISON STUDY: No previous studies for comparison. FINDINGS: 3-D and 2-D [id number] angiographic sequences were performed without intravenous contra st. There is no evidence of vertebral or carotid artery stenosis given the technical limitations of a noncontrast study. Examination is also moderately degraded by motion artifact. If further evaluation is desired, CT angiography would be recommended in follow-up. IMPRESSION: 1. No evidence of carotid or vertebral artery stenosis given the technical limitations of a noncontra st study ACT 112: Negative or not required by law. Electronically signed by: Rich Velasquez M.D. 10/02/2020 2:27 PM
--- NOTE | 2020-10-02 14:42 | XCELERA ---
[id number]
--- NOTE | 2020-10-02 15:48 | Hospitalist Progress Note ---
Date of Service October 02, 2020 Assessment & Plan (1) Left pontine stroke: Risk factors include smoking and hyperlipidemia. Spoke to patient about need to have complete smoking abstention and follow instructions regarding meds including atorvastatin Neurology following -appreciate Dr. Hong's input PT/OT, speech-language pathology Allergy listed to aspirin so we will discontinue this We will continue with clopidogrel 75 mg p.o. daily Discontinue rosuvastatin and start atorvastatin high-dose (2) Diabetes mellitus type 2, uncontrolled: Most recent hemoglobin A1c last month was 8.7%. Follow-up A1c is pending Continue Lantus 7 units twice daily Continue NovoLog sliding scale Diabetic, heart healthy diet (3) Chronic kidney disease, stage III (moderate): BUN 30, creatinine 1.96 Follow fluid ins and outs Follow serial labs (4) Hypertension: Allow for some permissive hypertension secondary to left pontine stroke Home antihypertensives include amlodipine 10 mg daily and losartan 50 mg p.o. twice daily Plan on resuming home antihypertensives tomorrow (5) Dyslipidemia: Home medications include rosuvastatin We will change to atorvastatin 80 mg p.o. daily secondary to pontine stroke Follow lipid panels as an outpatient (6) Abnormal TSH: TSH 4.19 Not on home levothyroxine Outpatient management (7) Diabetic peripheral neuropathy: No acute complaints today Not on home gabapentin Outpatient management (8) DVT prophylaxis: Hold chemical prophylaxis secondary to acute stroke CAM mcguire, Galilea Ambulate as tolerated PT/OT evaluation treatment Admission and Anticipated Discharge Date Admission Date: October 01, 2020 Subjective Attending: Dr. Talley Patient seen and examined at bedside. She still has some right-sided weakness. She has little bit of a slurred voice. She is alert and oriented x3. She denies any headache. She has no change in vision. She has no visual disturbance. She does state that she is a smoker. She lives with her and he is also a smoker. We discussed the importance of smoking cessation and she agrees and says that she has been trying and is just having difficulty with it. She has no acute complaints. Review of Systems Review of Systems: All systems reviewed & are unremarkable except as noted in Subjective Physical Exam Physical Exam: GENERAL : No acute distress EYES: No icterus, gaze conjugate NOSE: No evidence of epistaxis MOUTH: No lesions or candidiasis NECK: Supple LUNGS: CTA B/L, no wheezes, rales or rhonchi HEART: Regular, rate controlled ABDOMEN: Soft, NT, ND, BS Present EXTREMITIES: No LE edema, pedal pulses intact NEURO: A&OX3. Residual right-sided pronator drift. Some slurring in her speech. Lower extremity weakness. Pupils equal round and reactive to light. Patient denies dysphagia. Results & Data Results & Data ([facility]) Vital Signs (Past 12 Hours) Vital Signs Temp Pulse Resp BP Pulse Ox 10/02/20 15:15 37.0 C 78 22 150/80 H 98 10/02/20 11:24 36.7 C 73 20 153/79 H 99 10/02/20 07:16 36.7 C 72 18 161/82 H 100 10/02/20 03:57 37 C 68 16 161/73 H 99 Laboratory Results 10/02/20 06:39 10/02/20 06:39 Diagnostic Findings MRA of the neck is pending Echocardiogram report is pending PG Care Time/CCT Total # of Minutes Spent Total Time Spent with Patient: Total time spent is greater than 50% in coordination of care (as documented) at patient's floor/unit and/or counseling patient: Coding Level of Care Code 24677 Subseq Hosp Care Lvl 2 Diagnoses Left pontine stroke I63.50 Diabetes mellitus type 2, uncontrolled E11.65 Glycemic state: with hyperglycemia Chronic kidney disease, stage III (moderate) N18.30 Chronic kidney disease stage 3 subtype: unspecified whether 3a or 3b Hypertension I10 Hypertension type: essential hypertension Dyslipidemia E78.5 Abnormal TSH R79.89 Diabetic peripheral neuropathy E11.42 DVT prophylaxis Z29.9 (1) Diabetes mellitus type 2, uncontrolled Glycemic state: with hyperglycemia Qualified Code(s): E11.65 - Type 2 diabetes mellitus with hyperglycemia (2) Chronic kidney disease, stage III (moderate) Chronic kidney disease stage 3 subtype: unspecified whether 3a or 3b Qualified Code(s): N18.30 - Chronic kidney disease, stage 3 unspecified (3) Hypertension Hypertension type: essential hypertension Qualified Code(s): I10 - Essential (primary) hypertension
[2020-10-03 06:11] LABS: Estimated Average Glucose 186 mg/dl; Hemoglobin A1C 8.1 % (4.5-5.6)
[2020-10-03 07:27] LABS: Basophils # (auto) 0.02 K/uL (0-0.2); Basophils % (auto) 0.2 %; Eosinophils # (auto) 0.29 K/uL (0-0.5); Eosinophils % (auto) 3.2 %; Immature Granulocytes # (auto) 0.01 K/uL (0.00-0.02); Immature Granulocytes % (auto) 0.1 %; Lymphocytes % (auto) 26.1 %; Mean Corpuscular Hemoglobin 27.6 pg (25-34); Mean Corpuscular Hgb Conc 33.3 g/dL (32-36); Mean Corpuscular Volume 82.9 fL (80-100); Mean Platelet Volume 9.6 fL (7.4-10.4); Monocytes # (auto) 0.59 K/uL (0.11-0.59); Monocytes % (auto) 6.4 %; Neutrophils # (auto) 5.87 K/uL (1.4-6.5); Platelet Count 326 K/uL (130-400); RDW Coefficient of Variation 13.5 % (11.5-14.5); Red Blood Count 4.34 M/uL (4.2-5.4); White Blood Count 9.18 K/uL (4.8-10.8)
[2020-10-03 08:03] LABS: BUN Creatinine Ratio 18.3 (10-20); Calcium 8.8 mg/dl (8.5-10.1); Creatinine Clr Calc Pharmacy 22.8 ml/min; Est GFR (African American) 26.9; Est GFR (Non-African American) 23.2
[2020-10-03] MEDS: CLOPIDOGREL BISULFATE 75 MG TAB PO SCH (08:24)
[2020-10-03] MEDS: ESCITALOPRAM OXALATE 10 MG TAB PO SCH (08:24)
[2020-10-03] MEDS: INSULIN ASPART 100 UNITS/ML 3 ML PEN SC SCH ×3 (08:31→16:55)
[2020-10-03] MEDS: INSULIN GLARGINE SOLOSTAR 100 UNITS/ML 3 ML PEN SC SCH (08:32)
[2020-10-03] MEDS ORDERED: ATORVASTATIN 40 MG TAB PO SCH (09:00)
[2020-10-03] MEDS ORDERED: amLODIPine BESYLATE 5 MG TAB PO SCH (10:15)
[2020-10-03] MEDS ORDERED: STROKE PATIENT DISCHARGE STA (17:04)
--- NOTE | 2020-10-03 17:05 | Discharge Summary ---
Date of Service October 03, 2020 Admission HPI Per Admitting Provider Lauren Caal is a 55yo right-handed female presenting with stroke-like symptoms. Patient was recently admitted to [facility] from 09/08/20 - 09/11/20 for syncope. She had an unremarkable workup at that time including an echocardiogram which showed normal LV function, Grade 1 diastolic dysfunction, moderate LVH and mild MR. CT of the head with 8mm calcified meningioma. She was seen by her PCP on 09/27/20 with complaint of dizziness/vertigo episodes for which she was prescribed meclizine PRN. She was seen in the ER on 09/28/20 with complaint of dizziness/vertigo and presyncope which improved with Meclizine. She was discharged home in stable condition. Yesterday around 13:00 she was at work when a co-worker told her that she didn't look well. She was having slurred speech and was unable to hold anything in her right hand. She also had weakness of the RUE and RLE with difficulty walking, stating that she felt "wobbly". Her symptoms progressed over the last 24 hours. This AM she called the On-Call physician and was instructed to come to the ER. She reports that the weakness in her RUE and RLE have improved but she still has slurred speech. She has some pressure in her head. Otherwise, denies visual disturbance, chest pain, palpitations, cough, SOB, abdominal pain, nausea, vomiting, diarrhea or constipation. No additional complaints at this time. ER Course: Case discussed with [place] [facility] Plav[place] Principal Diagnosis Acute ischemic CVA-left pontine Discharge Exam Constitutional WD/WN, vitals as above Eyes PERRL, conjunctivae normal, anicteric sclerae EOM intact bilaterally; no anisocoria and no nystagmus ENMT external ear and nose normal, oropharynx normal Neck trachea midline, no thyromegaly Respiratory normal respiratory effort, lungs clear to auscultation Cardiovascular RRR, no murmur, no edema Chest (Breasts) Chest: normal inspection of chest Gastrointestinal (Abdomen) normal bowel sounds, soft, nontender, no hepatosplenomegaly Musculoskeletal Extremities: extremities normal to inspection; no cyanosis and no clubbing Skin no rashes, warm and dry Neurologic CN's II-XI intact bilaterally (Except with mild right facial droop and tongue deviating to the right), + focal motor deficit (4/5 strength in proximal muscles of RUE) and awake Speech / Cognition: + abnormal speech (Slightly slurred speech); no expressive aphasia, no receptive aphasia and normal cognition Motor/Sensory: + pronator drift (On right upper extremity); no tremor Coordination: + abnormal hpsnyf-rm-vwzd test (Grossly abnormal on the right) and + abnormal rapid alternating movements (On the right) Psychiatric A+Ox3, euthymic affect Lymphatic no lymphedema Discharge Data Allergies Allergy/AdvReac Type Severity Reaction Status Date / Time alcohol Allergy Severe SHORTNESS Verified 10/01/20 15:36 OF BREATH aspirin Allergy Intermediate HIVES Verified 10/01/20 15:36 ibuprofen Allergy Mild HIVES Verified 10/01/20 15:36 metformin Allergy Mild BODY PAIN Verified 10/01/20 15:36 Penicillins Allergy Mild HIVES Verified 10/01/20 15:36 Consultations 10/01/20 16:35 ED Decision to Admit Stat 10/01/20 20:39 Consult Neurology Routine Ordered Studies 10/01/20 14:36 CT head/brain wo con Stat 10/01/20 16:05 MR angio head wo con Stat MR brain wo con Stat MR cervical spine wo con Stat 10/02/20 08:32 MR angio neck wo con Urgent Head CT 10/01/20 14:36 CT head/brain wo con CLINICAL HISTORY: 55 years-old Female with right sided weakness eval for stroke. Acute right-sided weakness TECHNIQUE: Multiple axial CT images of the head were obtained without contrast. A dose lowering technique was utilized adhering to the principles of ALARA. CT DOSE: 614.27 mGy.cm COMPARISON: Head CT 09/08/2020. FINDINGS: No acute intracranial hemorrhage, midline shift, intra-axial mass, hydrocephalus, territorial ischemia or abnormal extra-axial collection. Cerebral vascular calcifications. Senescent calcifications of the lentiform nuclei. 8 mm calcification adjacent to left frontal lobe on image 25 is suggestive of an extra-axial meningioma. The calvarium is intact. Prior bilateral lens repair. The paranasal sinuses, mastoid air cells, and middle ear cavities are clear. IMPRESSION: 1. No acute intracranial abnormality. 2. Calcified subcentimeter meningioma adjacent to the left frontal lobe redemonstrated. ACT 112: Negative or not required by law. The above report was generated using voice recognition software. It may contain grammatical, syntax or spelling errors. Electronically signed by: Dewey Scott M.D. 10/01/2020 4:02 PM Brain MRI 10/01/20 16:05 MR brain wo con HISTORY: 55 years-old Female right-sided weakness acute hypertension with strokelike symptoms COMPARISON: Head CT of same day and also 09/08/2020 TECHNIQUE: Multiplanar multisequence MRI a the brain was obtained without the use of IV contrast. FINDINGS: There are several foci of restricted diffusion within the central, ventral and left paracentral urban with decreased signal on ADC map and increased T2/STIR signal, conglomerate measuring up to 1.9 cm in greatest dimension. Artifact from metallic density of the face most notably limits the diffusion-weighted images. No acute intracranial hemorrhage, midline shift, abnormal extra-axial collection, hydrocephalus or intra-axial mass. 8 mm calcified meningioma adjacent to left frontal lobe redemonstrated. Senescent calcifications of the lentiform nuclei. Mild patchy T2/FLAIR hyperintensities are noted throughout the white matter with a cluster of foci present within the left parietal lobe extending to the cortex on images 20 and 21 of the coronal series and possibly customer loyalty representative of a chronic insult. Cerebral venous sinuses are patent. Major vascular flow voids are also patent. The mastoid air cells are clear. Mild polypoid mucosal thickening of the right maxillary sinus. Prior bilateral lens repair. Skull and soft tissues are unremarkable. IMPRESSION: 1. Acute pontine infarcts, conglomerate measuring up to 1.9 cm. 2. No acute intracranial hemorrhage or midline shift. 3. Suggested mild chronic microvascular ischemic disease. 4. Indeterminate clustered foci of T2/FLAIR prolongation within the left parietal lobe cortex and subcortical distribution, possibly customer loyalty representative of remote insult. 5. Subcentimeter calcified meningioma adjacent to the left frontal lobe. ACT 112: Negative or not required by law. The above report was generated using voice recognition software. It may contain grammatical, syntax or spelling errors. Electronically signed by: Dewey Scott M.D. 10/01/2020 6:46 PM Cervical Spine MRI 10/01/20 16:05 MR cervical spine wo con HISTORY: 55 years-old Female right weakness acute neck pain with right-sided weakness COMPARISON: Brain MRI of same day TECHNIQUE: Multiplanar multisequence MRI of the cervical spine was obtained without the use of contrast. FINDINGS: T2 hyperintense foci of the pontine brainstem, better characterized on brain MRI of same day. 7 mm T3 vertebral body hemangioma. Straightening of the normal cervical lordosis. No acute fracture, subluxation, bone marrow or soft tissue edema. Signal within the cervical and imaged thoracic spinal cord appears normal. Unremarkable soft tissues of the neck. C2-C3: Mild facet arthrosis. No central canal or neural foraminal narrowing. C3-C4: Mild uncovertebral spurring and facet arthrosis. No central canal or neural foraminal narrowing. C4-C5: Mild uncovertebral spurring and facet arthrosis. No central canal or neural foraminal narrowing. C5-C6: Mild intervertebral disc space narrowing with uncovertebral spurring and small posterior disc osteophyte complex with mild facet arthrosis. No central canal or neural foraminal narrowing. C6-C7: Moderate intervertebral disc space narrowing with spondylitic spurring and circumferential annular disc bulge with disc osteophyte complex. Mild facet arthrosis. Flattening of the ventral thecal sac without significant central can al narrowing. Moderate right with [id number]-[id number] left neuroforaminal narrowing. C7-T1: Mild facet arthrosis. No central canal or neural foraminal narrowing. IMPRESSION: 1. T2 hyperintense foci of the pontine brainstem correlate with the acute infarcts which are better characterized on the brain MRI of same day. 2. Discogenic degeneration and facet arthrosis as above, most pronounced at C6-C 7 resulting in moderate right with mzxb-sp-[id number] left neuroforaminal narrowing. 3. No high-grade central canal stenosis. ACT 112: Negative or not required by law. The above report was generated using voice recognition software. It may contain grammatical, syntax or spelling errors. Electronically signed by: Dewey Scott M.D. 10/01/2020 7:01 PM Head MRA 10/01/20 16:05 MR angio head wo con HISTORY: 55 years-old Female right weakness acute strokelike symptoms COMPARISON: Brain MRI of same day TECHNIQUE: MRA of the head was obtained without the use of IV contrast utilizing 3-D hqqb-sg-[id number] sequencing with MIP reformats FINDINGS: Seating Upholsterer localizer images demonstrate no gross extracranial abnormality. The imaged internal carotid arteries, middle and anterior cerebral arteries are patent. Distal vertebral arteries are patent. Basilar and posterior cerebral arteries are patent. IMPRESSION: Unremarkable MRA of the head. ACT 112: Negative or not required by law. The above report was generated using voice recognition software. It may contain grammatical, syntax or spelling errors. Electronically signed by: Dewey Scott M.D. 10/01/2020 6:52 PM Neck MRA 10/02/20 08:32 MR angio neck wo con CLINICAL HISTORY: Acute pontine infarct. Evaluate for vertebral artery stenosis COMPARISON STUDY: No previous studies for comparison. FINDINGS: 3-D and 2-D [id number]-ti-[id number] angiographic sequences were performed without intravenous contrast. There is no evidence of vertebral or carotid arter y stenosis given the technical limitations of a noncontrast study. Examination is also moderately degraded by motion artifact. If further evaluation is desired, CT angiography would be recommended in follow-up. IMPRESSION: 1. No evidence of carotid or vertebral artery stenosis given the technical limitations of a noncontrast study ACT 112: Negative or not required by law. Electronically signed by: Rich Velasquez M.D. 10/02/2020 2:27 PM Echocardiogram-preserved EF, no wall motion abnormalities, no source of cardiac emboli noted, moderate LVH, negative interatrial shunt during bubble study Hospital Course (1) Brainstem infarct, acute: 55yo C female with HTN, DM 2, Tobacco use, CKD stage III-IV, and asthma presenting with right sided neurological deficit. Patient found with acute left sided pontine stroke. No edema or hemorrhage. Patient is >24 hours out from symptom onset at the time of admission, not a candidate for tPA. Weakness and ataxia have improved but still persist and she needs rehab placement MRI of the brain confirms conglomerate of left-sided pontine strokes and 1.9 cm area MRA of the head neck without significant stenosis or large vessel occlusion Echocardiogram negative for interatrial shunt or cardiac source of emboli Hemoglobin A1c uncontrolled at 8.1% Encouraged improved control of diabetes, cessation of smoking Appreciate neurology consultation -Started Plavix 75mg po daily -Started Crestor 20mg po daily-she had issues with myalgias on atorvastatin in the past -Blood pressure control-initially had permissive hypertension but restarted amlodipine 5 mg daily on the day of discharge and can increase to home dose of 10 mg daily tomorrow; restart losartan 50 mg p.o. twice daily this evening upon discharge -Follow-up with neurology in 6 to 8 weeks -Recommend 30-day cardiac event monitor to look for atrial fibrillation or flutter-none was noted on telemetry in the 2 days she was here. -Needs acute rehab (2) Elevated troponin: Patient with chronically elevated troponin, most likely secondary to her underlying CKD. She denies CP, palpitations. EKG with no evidence of acute ischemia -ASA and Statin as above (3) Hypertension: Patient with elevated BP in the setting of permissive hypertension Restarting medication slowly as above (4) Dyslipidemia: Chronic -Increase Crestor to 20mg po daily (5) Chronic kidney disease, stage III (moderate): BUN and Cr near baseline with creatinine at 2.2 -Continue to monitor BUN, Cr and electrolytes -Avoid nephrotoxic agents (6) Current smoker: Encouraged cessation (7) Diabetes mellitus type 2, uncontrolled: Chronic. Uncontrolled with hemoglobin A1c here of 8.1% Continue diabetic diet -Continue Lantus 7 units once daily along with NovoLog sliding scale (8) DVT prophylaxis: PPx - SCDs Code - Full Dispo -stable for discharge to acute rehab at [facility] Total Time Total Time Spent Total Time Spent (In Minutes): 40 minutes Total Time Includes: Examination of the Patient, Discharge Planning and Medication Reconciliation Discharge Plan Discharge Items Patient Disposition: Transfer Inpatient Rehab Fac Reason For Visit: STROKE-LIKE SYMPTOMS Discharge Diagnosis: Brainstem stroke Condition on Discharge: Fair Activity: As commented below Bathing: No limitations Exercise/Sports: Gradually increase as tolerated Exercise Comment: with PT/OT Driving/Machine Use: No driving until cleared by your doctor Weightbearing: Full weightbearing Non-emergency contact: Primary Care Provider and Neurologist Call non-emergency contact if: you have any medication questions and your symptoms worsen Follow-up/Referrals: Macie Brand MD [Primary Care Provider] - (Follow up within 2 weeks after discharge from rehab.) Sobeida Hong MD [Physician] - (Follow up with Neurology within 6-8 weeks.) Diet: Carb Consistent or DM2 and Heart Healthy Addtl Attending Provider Instructions: You were admitted for a stroke and started on new medications to help prevent you from having future strokes. It is very important that you improve your diabetes control, and quit smoking. Please have a 30 day cardiac event monitor performed to look for arrhythmias that can lead to stroke. Please check a BMP and CBC in 3 days. Risk Factors for Stroke: You can reduce your chances of stroke by working with your medical provider to adopt a healthy lifestyle. Some specific ways to lower your chance of stroke are: * If you are a smoker, now is the time to stop smoking cigarettes * If you are diabetic, improve the control of your blood sugars * Avoid excessive amounts of alcohol * Control high blood pressure * Lose weight if you are overweight * Be sure to lead an active lifestyle * Eat a healthy diet low in salt, cholesterol and fat You should know about other risk factors for stroke that you are unable to control. These include: * Age 55 years or older * Male gender * Certain racial groups: , or / * Family History of Stroke, Mini stroke or Heart Attack * Sickle Cell Disease Follow Up: It is important for you to keep your follow up appointments with your medical provider. Who to Call and When: Medical Emergencies: Call 911 immediately if you experience any of the following warning signs and symptoms of Stroke: * Sudden numbness or weakness of the face, arm or leg, especially on one side of the body * Sudden confusion, trouble speaking or understanding * Sudden trouble seeing in one or both eyes * Sudden trouble walking, dizziness, loss of balance or coordination * Sudden severe headache with no cause Do not delay calling 911 if you experience any warning signs or symptoms of a stroke. Delay in seeking medical attention may affect what treatments can be given to you. . Pending Studies at Discharge: No Stand-Alone Forms: My [facility] Skilled Items Patient informed of condition?: Yes DNR: No Discharge Level of Care: Acute rehab Communicable Disease: No Discharge Prognosis: Stable Lines: None Urinary Catheter: No Medications and DC Order Prescriptions: New clopidogrel 75 mg Tablet 75 mg PO QAM Qty: 30 RF: 0 rosuvastatin [Crestor] 20 mg tablet 20 mg PO DAILY Qty: 30 RF: 0 insulin aspart U-100 [Novolog Flexpen U-100 Insulin] 100 unit/mL (3 mL) Insulin Pen See Rx Instructions .ROUTE .COMPLEX Qty: 3 RF: 0 Continued (DME) lancets [Accu-Chek Fastclix Lancet Drum] misc See Rx Instructions .ROUTE .MEDSUPPLY Qty: 102 RF: 3 (DME) Accu-Chek Guide test strips strip See Rx Instructions .ROUTE .MEDSUPPLY Qty: 100 RF: 3 (DME) blood-glucose meter [Accu-Chek Guide Glucose Meter] misc See Rx Instructions .ROUTE .MEDSUPPLY Qty: 1 RF: 0 (DME) Dexcom G6 Oracle Pl Sql Developer Misc See Rx Instructions .ROUTE .MEDSUPPLY Qty: 1 RF: 0 (DME) Dexcom G6 Transmitter Device See Rx Instructions .ROUTE .MEDSUPPLY Qty: 1 RF: 3 (DME) pen needle, diabetic [BD Ultra-Fine Valentina Pen Needle] 32 gauge x 5/32" needle See Rx Instructions .ROUTE .MEDSUPPLY Qty: 400 RF: 1 amlodipine 10 mg tablet 10 mg PO QAM Qty: 90 RF: 1 losartan 50 mg tablet 50 mg PO BID Qty: 180 RF: 1 (DME) Dexcom G6 Sensor Device See Rx Instructions .ROUTE .MEDSUPPLY Qty: 3 RF: 3 ergocalciferol (vitamin D2) 1,250 mcg (50,000 unit) capsule 1,250 mcg PO WK RF: 0 escitalopram oxalate [Lexapro] 5 mg tablet 5 mg PO QAM RF: 0 Changed Basaglar KwikPen U-100 Insulin 100 unit/mL (3 mL) insulin pen 7 unit SUBCUT HS Qty: 15 RF: 5 Discontinued meclizine 25 mg tablet 25 mg PO TID PRN (Reason: dizziness) Qty: 30 RF: 1 rosuvastatin [Crestor] 5 mg tablet 5 mg PO 2XWK RF: 0 Discharge Orders: Discharge Order (Routine); Ordered 10/03/20 Ordered By: Mora Brown/Other Patient Handouts: Managing Diabetes: The A1C Test Admission Data Admit Date/Time: 10/01/20 18:31 Attending Provider: Mora Melvin Admit Provider: Sherice Gillespie Primary Care Provider: Macie Brand V. Other Providers: Sherice Gillespie ; hJon Nath ; [facility] ; [facility], Other Interventions: Discharge Summary Assessment (RN) Last Done: 10/03/20 17:15 Coding Level of Care Code D/C Day Management >30 mins Diagnoses Brainstem infarct, acute I63.89 Elevated troponin R77.8 Hypertension I10 Hypertension type: essential hypertension Dyslipidemia E78.5 Chronic kidney disease, stage III (moderate) N18.30 Chronic kidney disease stage 3 subtype: unspecified whether 3a or 3b Current smoker F17.200 Diabetes mellitus type 2, uncontrolled E11.65 Glycemic state: with hyperglycemia DVT prophylaxis Z29.9
== END 2020-10-03 18:12 | DRG 66 ==
LOC: ED 14:09 → 2S 18:31 → SUATTDRO 18:31 → 2S 19:54